=== PATIENT | female | born 1950 | race Caucasian/White ===

== ENCOUNTER → 2019-03-09 16:13 | Outpatient (CLI) | payer MEDICARE, OTHER, SELFPAY ==
--- NOTE | 2019-03-09 16:38 | VDLE_ITS ---
Reason For Study: Leg swelling RIGHT LEFT GSV is normal. GSV is normal. CFV is compressible, spontaneous, phasic, CFV is compressible, spontaneous, phasic, competent and demonstrates normal competent, and demonstrates normal augmentation. augmentation. FV is compressible, spontaneous, phasic, FV is compressible, spontaneous, phasic, competent and demonstrates normal competent and demonstrates normal augmentation. augmentation. POP V is compressible, spontaneous, phasic, POP V is compressible, spontaneous, phasic, competent and demonstrates normal competent and demonstrates normal augmentation. augmentation. T/P Trunk is compressible. T/P Trunk is compressible. PTV is compressible. PTV is compressible. RT PerV is compressible. LT PerV is compressible. Procedure Exam performed in department. A preliminary report was called and/or faxed to Juli. Interpretation Summary Deep veins of the lower extremities are bilaterally patent and compressible segmentally. There is no evidence of deep vein thrombosis on either side. Valvular competence appears intact within the proximal deep venous systems bilaterally. The great saphenous veins appear bilaterally patent and compressible segmentally. Ordering Physician: Mason Bustos Performed By: Jigna Henderson RVT
== END ==
PROVIDERS: Referring Provider Internal Medicine Hematology & Oncology; Visit Provider Internal Medicine Hematology & Oncology
DX: M79.89 Other specified soft tissue disorders (principal); C79.51 Secondary malignant neoplasm of bone
CPT/HCPCS: 93970

== ENCOUNTER 2019-03-10 16:49 | Emergency (ER) | payer MEDICARE, OTHER, SELFPAY ==
[2019-03-10 16:50] VITALS: BP 146/93; PULSE 112; RESP 16; TEMP 36.6; O2SAT 100; BMI 16.5
[2019-03-10 16:55] VITALS: RESP 16
--- NOTE | 2019-03-10 17:15 | RAD_ITS ---
STUDY: X-RAY - RIGHT TIBIA AND FIBULA REASON FOR EXAM: Female, 68 years old. Pain and swelling TECHNIQUE: 3 view(s) of the tibia and fibula were obtained. COMPARISON: None. FINDINGS: There is a hairline fracture of the mid to distal tibial shaft There are focal areas of spotty osteopenia and mildly increased sclerosis throughout the tibial diaphysis suspicious for metastatic disease. The soft tissue structures are unremarkable. RAD/Tibia & Fibula 2 Views IMPRESSION: Hairline fracture of mid to distal tibial shaft Suspicious for metastatic disease. MRI recommended for further evaluation Electronically Signed: Jono Abel MD at 17:41 EDT , Service support ,
--- NOTE | 2019-03-10 17:17 | ED.VIS.GEN ---
History of Present Illness Chief Complaint: Lower Extremity Injury Detail of Chief Complaint: Right leg pain Informant: Patient, Family Onset: Month(s), - - Acutely worse today on chronic pain Current Severity: Moderate Maximum Severity: Severe Narrative: Patient presents with pain to the right leg. Patient has metastatic breast cancer with no lesions to the tibia. Several months ago she had undergone radiation to that area to help with pain. That helped for short time but recently pain has been increasing again. She went to [facility] today to have an MRI of her leg done. As she was getting out of the car she stepped wrong and had sudden worsening of her pain. She was able to make it through the MRI and get back to the car, but was so painful she could not get out of the car. Her oncologist suggested she come here for x-rays. Patient does not have the results of her MRI and was told it would not be available until tomorrow. Patient does have chronic swelling to her legs and just underwent venous ultrasound yesterday that showed no evidence of DVT. Past Medical History - Allergies and Home Meds Allergies/Adverse Reactions: Allergies No Known Allergies Allergy (Verified 03/10/19 16:58) Primary Care Physician: Care Physician,No Primary [Primary Care Provider] - Prior records reviewed: Yes Past Medical History: - - Reviewed Lives: With Family Smoking Status: Never smoker Review of Systems General: Denies: Chills, Fever Eyes: Denies: Visual changes - bilaterally ENT: Denies: Bilateral ear pain Cardiovascular: Denies: Chest pain Respiratory: Denies: Dyspnea Gastrointestinal: Denies: Abdominal pain, Nausea, Vomiting Musculoskeletal: Reports: Arthralgias, Back pain Skin: Denies: Rash Neurological: Denies: Headache Endocrine: Denies: Polyuria, Polydipsia Hematologic: Denies: Easy bruising, Easy bleeding Allergy: Denies: Uticaria Physical Exam Vital Signs/Narrative: Vital Signs Temp Pulse Resp BP Pulse Ox 03/10/19 16:55 16 03/10/19 16:50 98 F 112 H 16 146/93 H 100 Inital Vital Signs reviewed: Yes General: Cachectic ENT: Moist mucous membranes Neck: Supple Cardiovascular: Regular rate, Regular rhythm Respiratory: No distress Abdomen: Soft, Nontender Extremities: - - 3+ edema to the bilateral lower extremities. Tenderness throughout the right lower leg. Strong distal pulses are noted. 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 Skin: Normal color Neurological: Alert, Oriented x3 Psychological: Tearful Diagnostic/Tx/Re-eval Impressions Tibia/Fibula X-Ray 03/10/19 17:15 IMPRESSION: Hairline fracture of mid to distal tibial shaft Suspicious for metastatic disease. MRI recommended for further evaluation Electronically Signed: Jono Abel MD at 17:41 EDT , Service support , 03/10/19 17:15 Tibia & Fibula 2 Views [RAD] Stat - Medical Decision Making Patient had taken oxycodone just prior to arrival. X-ray results were discussed with her. She just had an MRI of her lower extremity done prior to arrival here. This result will be available tomorrow. Patient is placed in a walking boot and advised she cannot bear any weight on that right leg. She has a walker and a wheelchair at home that she will use. She has oxycodone at home. I also spoke with Dr. Ordonez. Patient is to call the office tomorrow to review her MRI results and determine if she needs to follow-up with orthopedics. ED Disposition - Plan for ED Patient: Disposition: Home or Assisted Living Diagnosis: Tibia fracture Instructions: FRACTURE, Lower Extremity Additional Instructions: Call Dr Bustos tomorrow to review your MRI and determine if you need to see orthopedics. You can not bear any weight on the right leg.
[2019-03-10 19:20] VITALS: RESP 16
== END 2019-03-10 19:32 | disposition home or self-care (01) ==
PROVIDERS: Emergency Provider Emergency Medicine
DX: S82.201A Unspecified fracture of shaft of right tibia, initial encounter for closed fracture (principal); X58.XXXA Exposure to other specified factors, initial encounter; Y93.9 Activity, unspecified; Y99.9 Unspecified external cause status; G89.29 Other chronic pain; M79.89 Other specified soft tissue disorders; C50.919 Malignant neoplasm of unspecified site of unspecified female breast; G62.2 Polyneuropathy due to other toxic agents; T45.1X5A Adverse effect of antineoplastic and immunosuppressive drugs, initial encounter; Y92.9 Unspecified place or not applicable; Z79.899 Other long term (current) drug therapy
CPT/HCPCS: 73590; 99283

== ENCOUNTER → 2019-03-29 10:28 | Outpatient (CLI) | payer MEDICARE, OTHER, SELFPAY ==
[2019-03-22 09:39] VITALS: BMI 17.2
--- NOTE | 2019-03-29 10:28 | NM_ITS ---
CLINICAL: 68-year-old female with reported history of carcinoma of the breast. WHOLE BODY 99m Tc MDP RADIONUCLIDE BONE SCINTIGRAPHY COMPARISON: Plain film radiograph report right tibia-fibula 03/10/2019 FINDINGS: Following the intravenous administration of 25.8 mCi of 99m Tc MDP, whole body bone images reveal: 1. Increased radiopharmaceutical concentration is defined in the distal right tibial diaphysis. 2. Enhanced uptake is visualized in the glenohumeral compartments of both shoulders, the 11th-12th thoracic, first-second lumbar vertebra posteriorly on the left and right, tibial compartments of both knees, posterior compartment of the right ankle, fifth lumbar vertebra and sacrum anteriorly. 3. The remaining skeletal structures are scintigraphically unremarkable with normal-appearing renal images and urinary bladder activity identified. NM/Bone Scan Whole Body IMPRESSION: 1. Facilitated tracer distribution noted in the distal right tibial diaphysis is commensurate with known trauma-fracture. 2. Degenerative arthritis appears expressed in the bilateral shoulders, thoracic and lumbar spine, sacrum, bilateral knees and right ankle articulation. 3. There is no definitive typical scintigraphic evidence of diffuse axial skeletal metastatic disease on the current examination. Electronically Signed: Prabhakar Galdamez DO at 23:31 EDT Tel , Service support ,
== END ==
PROVIDERS: Referring Provider Internal Medicine Hematology & Oncology; Visit Provider Internal Medicine Hematology & Oncology
DX: C50.911 Malignant neoplasm of unspecified site of right female breast (principal); C79.51 Secondary malignant neoplasm of bone; M84.461A Pathological fracture, right tibia, initial encounter for fracture; M84.463A Pathological fracture, right fibula, initial encounter for fracture; M84.452A Pathological fracture, left femur, initial encounter for fracture
CPT/HCPCS: 78306

== ENCOUNTER → 2019-05-18 15:27 | Outpatient (CLI) | payer MEDICARE, OTHER, SELFPAY ==
[2019-04-18 14:31] VITALS: BMI 15.3
--- NOTE | 2019-05-18 | EMB_PTH ---
PATIENT: MARVIN VALDEZ [facility] U#:[id number] AGE/SX: 74/F ROOM: RE05/18/[address]: CM Junior : 1950 BED: DIS: SPEC #: [id number] RECD: 05/18/19 15:40 STATUS: PERLITA JIGNA #: [id number] VINCENT: 05/18/19 00:[address]: Jana Ivy NP DEPT: SURGICAL PATHOLOGY RECD BY: Aidtya Sethi ENTERED: 05/19/19 08:08 SP TYPE: ENDOM BX/C TERRY DR: Monae Primary Care Phys Tissues: Endometrium, NOS Procedures: Surgery Specimen Level IV HEADER OPERATION: Endometrial biopsy PRE-OP DIAGNOSIS: Abnormal uterine bleeding TISSUE SUBMITTED: Endometrial biopsy MICROSCOPIC DIAGNOSIS Endometrial biopsy: Fragments of weakly proliferative endometrium with focal cystic changes and tubal metaplasia. Fragments of benign ecto- and endocervical epithelium. See comment. SJ:eveline 05/20/19 COMMENT Clinical correlation and appropriate follow up are necessary. MICROSCOPIC DESCRIPTION Slides are reviewed. GROSS DESCRIPTION Received is one container labeled with the patient's name and not further designated. The specimen consists of multiple irregular fragments of box mucoid tissue that in aggregate measure 2.5 x 2 x 0.1 cm. The specimen is totally submitted in one cassette. / SJ:eveline 05/19/19 TC:5 CPT: 05713
[2019-05-18 08:13] VITALS: BMI 16.9
== END ==
PROVIDERS: Visit Provider Nurse Practitioner Women's Health
DX: N93.9 Abnormal uterine and vaginal bleeding, unspecified (principal)
CPT/HCPCS: 88305

== ENCOUNTER 2019-06-24 07:57 | Day surgery (SDC) | payer MEDICARE, OTHER, SELFPAY ==
[2019-04-18 14:31] VITALS: BMI 15.3
[2019-06-14 13:28] VITALS: BMI 16.0
[2019-06-24] VITALS (7 sets, daily range): BP systolic 105–125; BP diastolic 68–79; PULSE 66–103; RESP 16; TEMP 36.8–37.2; O2SAT 96–99; BMI 18.0
[2019-06-24] MEDS: Lactated Ringers 1,000 ML 100 ML IV (08:36)
--- NOTE | 2019-06-24 09:40 | PCM.HP.BLA ---
Problem List (1) Encounter for adjustment and management of vascular access device Status: Acute (2) Cancer of right female breast Status: Chronic History and Physical Date of Admission: 06/24/19 Intake Vital Signs 06/23/19 Blood Pressure 133/78 H 06/23/19 Blood Pressure Location Lt brachial 06/23/19 Blood Pressure Position Sitting 06/23/19 Respiratory Rate 14 06/23/19 Pulse Rate 106 H 06/23/19 Pulse Source Monitor 06/23/19 Temperature 97.7 F L 06/23/19 Temperature Source Oral 06/23/19 Pulse Ox 95 06/23/19 Oxygen Delivery Method room air Intake Visit Reasons: NEEDS PORT INOCENCIA Chief Complaint: Metastatic breast cancer Real Estate Intern Required: No Accompanied by: None Is patient in pain?: No Allergies No Known Allergies Allergy (Verified 06/21/19 14:39) Medications Tamoxifen Citrate 20 mg PO DAILY 30 Days #30 tab 04/05/19 [Rx Confirmed 06/21/19] Megestrol Acetate [Megace Udc] 160 mg PO Q6H 30 Days #480 ml 04/13/19 [Rx Confirmed 06/21/19] Calcium 1 tab PO DAILY 04/18/19 [History Confirmed 06/21/19] Ergocalciferol [Vitamin D] 1 tab PO QWEEK 04/18/19 [History Confirmed 06/21/19] Pregabalin [Lyrica] 50 mg PO TID 04/19/19 [History Confirmed 06/21/19] traMADol [Ultram (G)] 50 mg PO TID PRN 04/19/19 [History Confirmed 06/21/19] PFSH Medical History (Updated 05/18/19 @ 08:35 by CM Junior) FEMORAL PROPHYLACTIC IM NAILS (Acute) Anemia (Chronic) Surgical History (Updated 03/22/19 @ 09:32 by Amanda Diallo) History of mastectomy (Acute) Family History (Updated 03/22/19 @ 09:33 by Amanda Diallo) Mother Colon cancer Father Heart disease Social History (Updated 06/23/19 @ 14:53 by Timo Benítez MD) Smoking Status: Never smoker alcohol intake: never substance use type: does not use caffeine: Yes what type of physical activity do you participate in: walking seatbelt use: always do you feel safe at home: Yes additional social history: Keegan Both are retired HPI HPI HPI: MARVIN VALDEZ, is a 68 F who presents to the office today for HPI HPI HPI: MARVIN VALDEZ, is a 68 F who presents to the office today for Port placement. Patient has metastatic breast cancer. ROS General General: Yes weight change, fatigue and breast cancer; no appetite, colon cancer or weakness HEENT HEENT: Yes eye surgery; no difficulty swallowing, eye injury, swollen glands or hoarseness Endo Endocrine: No thyroid disease, diabetes mellitus, thyroid cancer, Hair loss, heat intolerance or cold intolerance Skin Skin: No rash or changing moles Musc Musculoskeletal: Yes arthritis; no back problems, rheumatoid arthritis, gout or joint pain Cardio Cardiovascular: No murmur, pacemaker, heart disease, atrial fibrillation, high blood pressure, heart attack, heart stent, palpitations, shortness of breat with exertion or chest pain Psych Psychiatric: No depression, anxiety or hearing voices Resp Respiratory: No shortness of breath, No sleep apnea, No cough, No COPD, No asthma, No emphysema, No wheezing Gastro Gastrointestinal: No abdominal pain, No nausea or vomiting, No diarrhea, No constipation, No blood in stool, No acid reflux, Yes hemorrhoids, No ulcers, No gallbladder problem, No black,tarry stools Fish Hematologic: No blood thinners, No blood disorders, No bleeding, No anemia, No blood clots Neuro Neurologic: No system reviewed and no additional complaints, except as docu, No as per HPI, No abnormal walking, No abnormal hearing, No abnormal movements, No abnormal speech, No behavioral changes, No burning sensations, No confusion, No seizure-like activity, No unsteadiness, No dizziness, No localized weakness, No frequent falls, No headache(s), No lack of coordination, No loss of vision, No memory loss, Yes numbness, No other visual disturbances, No radiating pain, No restless legs, No sensory deficit, No fainting, Yes tingling, No tremor(s), No weakness, No other Exam Const General: cooperative Nutritional Appearance: cachectic Orientation: alert, oriented x3 Resp Effort & Inspection: normal respiratory effort Auscultation: clear to auscultation bilaterally Cardio Rate: regular rate Rhythm: regular rhythm Heart Sounds: no murmurs GI Inspection: non-distended Palpation: soft, nontender Assessment & Plan Problems 1. Bone metastases C79.51 2. Encounter for insertion of venous access port Z45.2 Plan I discussed the right chest port placement with the patient in detail. I discussed the risks include not limited to bleeding, infection, pneumothorax, DVT, line infection. The patient understands the risks and is willing proceed with port placement. Timo Benítez MD Pager: [facility] [address] [place] [address], [address] [place] [address] Office:
[2019-06-24] MEDS: Cefazolin 2 GM in 0.9% Normal Saline 100 ML IV (10:05)
[2019-06-24] MEDS: Bupiv/Epi 0.25% 30 ML Vial (10:36)
--- NOTE | 2019-06-24 10:52 | RAD_ITS ---
STUDY: X-RAY CHEST REASON FOR EXAM: Female, 68 years old. Port placement. TECHNIQUE: Single AP portable view of the chest. COMPARISON: None. FINDINGS: A right-sided rosalio catheter has been placed. The tip is in the right atrium. Left lower lobe infiltrate with small left pleural effusion. There is no demonstrated pleural abnormality. Normal size heart. Normal mediastinum and lópez. Normal visualized pulmonary arteries. There is atherosclerotic calcification of the aortic arch with tortuosity. Diffuse metastasis involving the appendicular and axial skeletons. There is no demonstrated abnormality of the visualized soft tissue structures of the upper abdomen. RAD/CXR for Line Placement IMPRESSION: The tip of the right portacatheter is in the right atrium. Diffuse appendicular and skeletal metastatic skeletal metastasis. Left lower lobe infiltrate with small left pleural effusion. Electronically Signed: Nick Torres, at 12:25 EST , Service support ,
--- NOTE | 2019-06-24 10:52 | PCM.OPRPT ---
Problem List (1) Encounter for adjustment and management of vascular access device Status: Acute (2) Cancer of right female breast Status: Chronic Report of Operation Date of Procedure: 06/24/19 Pre-Operative Diagnosis: Recurrent metastatic breast cancer with need for vascular access Post-Operative Diagnosis: Same Surgery/Procedure Performed:: Ultrasound and fluoroscopy guided right chest port placement utilizing right IJ Description of Procedure: After obtaining informed consent patient was brought back to the operating room MAC anesthesia was induced and the right chest and neck were prepped in normal sterile fashion. Ultrasound was used to evaluate both IJs and the [] IJ was selected. Next, using a needle, the [] IJ was accessed and a guidewire was passed on into the superior vena cava under fluoroscopy guidance. A small incision was made over the puncture site and the dilator introducer was placed over the guidewire. Next this was capped and the pocket was made for the port. 1% lidocaine with epinephrine was injected in the proposed port site. An incision was made with scalpel. Electrocautery was used to make a pocket under the skin and subcutaneous tissue. Hemostasis was obtained. Next, the catheter was tunneled up to the neck incision site and placed through the introducer. The peel-away introducer was removed and the position of the catheter was confirmed on fluoroscopy. Next, the catheter was trimmed and attached to the port with the locking device. Interrupted 2-0 Vicryl sutures were used to anchor the port to the chest wall and then the port was placed inside the pocket. The pocket was then flushed with saline and the port irrigated with saline. There was good blood return and the port flushed easily. Next, heparin was injected into the port. The skin was closed with subcutaneous interrupted 3-0 Vicryl sutures. A single 3-0 Vicryl sutures placed under the skin at the neck incision site. Steri-Strips were placed as well as op sites. Patient tolerated procedure well, was taken to PACU in stable condition. Chest x-ray will be obtained. Grafts/Implants Used: 8 Sudanese PowerPort - Admit VTE Documentation VTE Mechan Device Prophylaxis: SCD's
--- NOTE | 2019-06-24 10:55 | DCINST_ITS ---
Discharge Diet: No Restrictions - Pain medication may cause nausea. You should typically eat light foods as you take your pain medication. Discharge Activity: Return to Normal Activity, May Shower - with your bandage in place in 1-2 days after surgery. DO NOT SHOWER WHEN YOUR PORT IS ACCESSED. Call your doctor if your incision/area has: Continuous Slow Oozing, Sudden Increased Bleeding, Increased Pain/ Swelling, Increased Redness Call your doctor if you observe: Fever of 101 or Higher Remove Dressing in (days):: 3 - When you remove the bandage, leave the steri- strips intact until they fall off. Allergies/Adverse Reactions: Allergies No Known Allergies Allergy (Verified 06/24/19 08:28) Medications to take at Discharge Megestrol Acetate [Megace Udc] 160 mg PO Q6H 30 Days #480 ml 04/13/19 Calcium 1 tab PO DAILY 04/18/19 Pregabalin [Lyrica] 50 mg PO TID 04/19/19 traMADol [Ultram (G)] 50 mg PO BID PRN 04/19/19 Cholecalciferol (VIT D3) [Vitamin D] 1,000 unit PO DAILY 06/23/19 Tamoxifen Citrate 20 mg PO DAILY 06/23/19 Primary Care Physician: Golden Goldsmith Chi, MD [Primary Care Provider] - Test Results: Test results from this visit will be discussed in further detail at your follow- up appointment, if applicable. Please Follow Up With: Timo Benítez MD When: Please call to schedule 2 week follow up appointment. [phone]
== END 2019-06-24 12:50 | disposition home or self-care (01) ==
LOC: SDC 07:59 → AC 08:01 → ACINP 10:29
PROVIDERS: Family Provider Family Medicine Geriatric Medicine; PCP Family Medicine Geriatric Medicine; Referring Provider Surgery; Visit Provider Surgery
PROC: (CPT 36561; principal; 2019-06-24 09:15)
DX: Z45.2 Encounter for adjustment and management of vascular access device (principal); C50.911 Malignant neoplasm of unspecified site of right female breast; C79.51 Secondary malignant neoplasm of bone
CPT/HCPCS: 36561; 71045; 77001; J7120; C1788; J2405

== ENCOUNTER → 2019-07-11 15:13 | Outpatient (CLI) | payer MEDICARE, OTHER, SELFPAY ==
[2019-04-18 14:31] VITALS: BMI 15.3
[2019-07-11 10:54] VITALS: BMI 16.7
--- NOTE | 2019-07-11 15:18 | VDLE_ITS ---
Reason For Study: RLE swelling RIGHT LEFT GSV is normal. CFV is compressible, spontaneous, phasic, CFV is compressible, spontaneous, phasic, competent, and demonstrates normal competent and demonstrates normal augmentation. augmentation. FV is compressible, spontaneous, phasic, competent and demonstrates normal augmentation. POP V is compressible, spontaneous, phasic, competent and demonstrates normal augmentation. T/P Trunk is compressible. PTV is compressible. RT PerV is compressible. Procedure Exam performed in department. The exam was diagnostic. A preliminary report was called and/or faxed to Anna Rizvi TRANSMITTER ENGINEER @ [phone] @ 3:37. Interpretation Summary There is no evidence of right lower extremity deep vein thrombosis. Right great saphenous vein appears patent and compressible segmentally. Normal flow patterns left common femoral vein Ordering Physician: Anna Rizvi Referring Physician: NO PCP Performed By: Rohini Espinal RDCS, RVT
--- NOTE | 2019-07-11 15:38 | RAD_ITS ---
STUDY: X-RAY - RIGHT FOOT CLINICAL: Female, 68 years old. edema of the right foot. hx of breast and bone ca TECHNIQUE: 3 view(s) of the foot. COMPARISON: None. FINDINGS: There is a plantar calcaneal spur. Normal visualized subtalar, talonavicular, calcaneocuboid, tarsal and tarsometatarsal articulations. Normal metatarsi. There is degenerative arthrosis of the metatarsophalangeal joint of the hallux . Normal tibial and fibular sesamoid bones. Normal interphalangeal joint of the great toe. Normal phalanges of the great toe. Normal second through fifth metatarsophalangeal joints. Normal interphalangeal joints and phalanges of the lesser toes. The soft tissue structures are unremarkable. RAD/Foot min 3 Views IMPRESSION: No fracture or malalignment. Electronically Signed: Stanley Harrington MD (Brooks) at 13:16 EST , Service support ,
== END ==
PROVIDERS: Referring Provider Nurse Practitioner Family; Visit Provider Nurse Practitioner Family
DX: Z51.11 Encounter for antineoplastic chemotherapy (principal); C50.811 Malignant neoplasm of overlapping sites of right female breast; C79.51 Secondary malignant neoplasm of bone; R60.0 Localized edema
CPT/HCPCS: 36591; 73630; 85025; 93971; 96367; 96372; 96413; J7050; A4216; J0897; J2405; J2505; J3490; J9171

== ENCOUNTER → 2019-07-15 07:15 | Outpatient (CLI) | payer MEDICARE, OTHER, SELFPAY ==
[2019-04-18 14:31] VITALS: BMI 15.3
[2019-07-11 10:54] VITALS: BMI 16.7
--- NOTE | 2019-07-15 07:26 | MRI_ITS ---
STUDY: MRI BRAIN WITH AND WITHOUT CONTRAST REASON FOR EXAM: Female, 68 years old. imbalance, Hx of breast CA, abnormal PET scan TECHNIQUE: Standardized multiplanar fat and water weighted pulse sequences were obtained. IV Yes YES was administered for the contrast portion of the examination. COMPARISON: None. FINDINGS: There is mild cerebral atrophy with widening of the extra-axial spaces and ventricular dilatation. There are a limited number of small white matter hyperintensities, distributed throughout the deep white matter tracts of the cerebral hemispheres, consistent with mild chronic white matter ischemic changes. There is no evidence for recent intracranial ischemia or other cause of cytotoxic edema on diffusion weighted imaging (DWI). Normal T2* images of the brain without demonstrated susceptibility artifact. There is no demonstrated hemosiderin stain. Normal bilateral basal ganglia. Normal thalami. There is no extra-axial fluid accumulation. Normal flow voids within the major intracranial circulation suggesting patency by spin echo criteria. Normal venous enhancement. Millimeters solidly enhancing round mass with surrounding edema within the inferomedial aspect of the left parietal lobe consistent with metastasis. There is a 3 mm round area of contrast enhancement within the medial aspect of the left hemisphere of the cerebellum worrisome for another metastasis. Normal sella turcica, pituitary gland, infundibular stalk, optic chiasm and hypothalamus. Normal tectal plate and pineal gland. Normal midbrain, susan and medulla. Normal cerebellum. Normal basal cisterns. Normal bilateral temporal bones. Normal bilateral internal auditory canals. There are bilateral ocular lens implants with otherwise normal intraorbital contents. Normal visualized paranasal sinuses. Normal calvarium and skull base. Normal visualized soft tissue structures. Normal visualized upper cervical spine. MRI/Brain W/WO Contrast IMPRESSION: Suspect metastatic disease as described above. Electronically Signed: Prabhakar Linton MD at 15:57 EST Tel , Service support ,
[2019-07-15] MEDS: 0.9% Saline Lock 10 ML Syringe IV (08:10)
== END ==
PROVIDERS: Referring Provider Nurse Practitioner Family; Visit Provider Nurse Practitioner Family
DX: C50.919 Malignant neoplasm of unspecified site of unspecified female breast (principal); M84.463A Pathological fracture, right fibula, initial encounter for fracture
CPT/HCPCS: 70553; A9575; A4216

== ENCOUNTER → 2019-10-07 12:03 | Outpatient (CLI) | payer MEDICARE, OTHER, SELFPAY ==
[2019-04-18 14:31] VITALS: BMI 15.3
[2019-10-04 11:37] VITALS: BMI 16.9
--- NOTE | 2019-10-07 12:04 | MRI_ITS ---
STUDY: MRI BRAIN WITH AND WITHOUT CONTRAST REASON FOR EXAM: Female, 69 years old. Post radiation scan TECHNIQUE: Standardized multiplanar fat and water weighted pulse sequences were obtained. IV Yes YES was administered for the contrast portion of the examination. COMPARISON: 07/15/2019 FINDINGS: There is mild cerebral atrophy with widening of the extra-axial spaces and ventricular dilatation. There are a limited number of small white matter hyperintensities, distributed throughout the deep white matter tracts of the cerebral hemispheres, consistent with mild chronic white matter ischemic changes. There is no evidence for recent intracranial ischemia or other cause of cytotoxic edema on diffusion weighted imaging (DWI). Normal T2* images of the brain without demonstrated susceptibility artifact. There is no demonstrated hemosiderin stain. Normal bilateral basal ganglia. Normal thalami. There is no extra-axial fluid accumulation. Normal flow voids within the major intracranial circulation suggesting patency by spin echo criteria. Normal venous enhancement. There has been an interval decrease in the size of the solidly enhancing mass within the inferomedial left parietal lobe from 10 mm in diameter to 4 mm in diameter with a decrease in the surrounding vasogenic edema consistent with improved metastasis. The 3 mm solidly enhancing lesions in the medial aspect left hemisphere of the cerebellum is unchanged. There is a new 3 mm solid enhancing lesion within the medial left parietal lobe near the falx consistent with metastasis per Normal sella turcica, pituitary gland, infundibular stalk, optic chiasm and hypothalamus. Normal tectal plate and pineal gland. Normal midbrain, susan and medulla. Normal cerebellum. Normal basal cisterns. Normal bilateral temporal bones. Normal bilateral internal auditory canals. No demonstrated orbital abnormality, within the constraints of a routine brain study. Normal visualized paranasal sinuses. Normal calvarium and skull base. Normal visualized soft tissue structures. Normal visualized upper cervical spine. MRI/Brain W/WO Contrast IMPRESSION: Mixed response to therapy with a decrease in the size of the largest metastatic lesion in the inferomedial left parietal lobe from 10 mm in diameter to 4 mm in diameter. The 3 mm lesion in the medial left hemisphere of the cerebellum is unchanged. There is a new 3 mm lesion in the posterior left parietal lobe near the falx. Electronically Signed: Prabhakar Linton MD at 14:06 EDT Tel , Service support ,
== END ==
PROVIDERS: PCP Family Medicine Geriatric Medicine; Referring Provider Internal Medicine Hematology & Oncology; Visit Provider Internal Medicine Hematology & Oncology
DX: C79.31 Secondary malignant neoplasm of brain (principal); M84.461A Pathological fracture, right tibia, initial encounter for fracture; M84.452A Pathological fracture, left femur, initial encounter for fracture
CPT/HCPCS: 70553; A9575; A4216

== ENCOUNTER → 2019-11-28 14:10 | Outpatient (CLI) | payer MEDICARE, OTHER, SELFPAY ==
[2019-04-18 14:31] VITALS: BMI 15.3
[2019-11-28 10:29] VITALS: BMI 16.2
--- NOTE | 2019-11-28 14:12 | CT_ITS ---
STUDY: CTA CHEST REASON FOR EXAM: Female, 69 years old. POSS PE, SOB, ON CHEMO NOW, METASTATIC BREAST CA-BONE AND BRAIN METS, PREV BILAT MASTECTOMY, HAD RAD TX RADIATION DOSAGE (If Supplied By Facility): CTDIvol = ( 4.73 ) mGy, DLP = ( 103.93 ) mGycm TECHNIQUE: The examination was performed with the intravenous administration of IV 100mL Isovue-370. Post-processing of the angiographic images was performed, with multiplanar reformation and 3D reconstruction. Individualized dose optimization techniques were used for this CT. COMPARISON: None. FINDINGS: Normal enhancement of the main pulmonary artery and right and left pulmonary arteries. Normal enhancement of the bilateral peripheral pulmonary arteries. There is no demonstrated pulmonary embolism. Normal thoracic aorta and visualized great vessels. There is no demonstrated aortic dissection. Normal heart and pericardium. Normal mediastinum. Normal hilar regions. Normal visualized trachea and bronchi. There is compressive atelectasis in the right and left lung bases more prominent in the left lower lobe. Patchy groundglass opacities are seen in the anterior segment of the right lung upper lobe, in the right middle lobe and in the anterior segment of the left lung upper lobe suggesting bilateral pneumonia. Large bilateral pleural effusions. Normal chest wall structures. Diffuse metastatic disease in the osseous structures. Normal visualized upper abdomen. CT/CTA Chest W/WO Contrast IMPRESSION: No demonstrated pulmonary embolism or arterial dissection. Patchy groundglass opacities are seen in the anterior segment of the right lung upper lobe, in the right middle lobe and in the anterior segment of the left lung upper lobe suggesting bilateral pneumonia. Large bilateral pleural effusions. There is compressive atelectasis in the right and left lung bases more prominent in the left lower lobe. Electronically Signed: Harvey Wiley, at 15:35 EDT Tel , Service support ,
[2019-11-28] MEDS: 0.9% Saline Lock 10 ML Syringe IV (14:43)
== END ==
PROVIDERS: PCP Family Medicine Geriatric Medicine; Referring Provider Internal Medicine Hematology & Oncology; Visit Provider Internal Medicine Hematology & Oncology
DX: Z51.11 Encounter for antineoplastic chemotherapy (principal); C50.811 Malignant neoplasm of overlapping sites of right female breast; C79.51 Secondary malignant neoplasm of bone; C79.31 Secondary malignant neoplasm of brain; M84.461A Pathological fracture, right tibia, initial encounter for fracture; M84.452A Pathological fracture, left femur, initial encounter for fracture; J90 Pleural effusion, not elsewhere classified; R53.83 Other fatigue; Z79.899 Other long term (current) drug therapy
CPT/HCPCS: 36591; 71275; 85025; 86300; 96367; 96413; J7050; Q9967; A4216; J2405; J3490; J9171

== ENCOUNTER → 2019-12-08 07:43 | Outpatient (CLI) | payer MEDICARE, OTHER, SELFPAY ==
[2019-04-18 14:31] VITALS: BMI 15.3
[2019-11-28 10:29] VITALS: BMI 16.2
[2019-12-06 11:41] VITALS: BMI 15.9
--- NOTE | 2019-12-08 | FLU_PTH ---
PATIENT: MARVIN VALDEZ LOC: [facility]#:[id number] AGE/SX: 74/F ROOM: RE12/08/[address]: Dr. Lisa Carrera MD : 1950 BED: DIS: SPEC #: [id number] RECD: 12/08/19 10:48 STATUS: PERLITA RETrevor #: [id number] VINCENT: 12/08/19 00:[address]: Lisa Carrera DEPT: CYTOLOGY RECD BY: Indra Ames ENTERED: 12/08/19 10:48 SP TYPE: Fluid OTHR DR: Dr. Golden Goldsmith MD Tissues: THORACIC FLUID Procedures: Special Stain Group II Mucicarmine Stain (control) Surgery Specimen Level IV Cytospin Fluid HEADER OPERATION: Thoracentesis PRE-OP DIAGNOSIS: Pleural effusion TISSUE SUBMITTED: Thoracentesis fluid for cytology DIAGNOSIS CYTOLOGY Thoracentesis fluid for cytology (cytospin and cell block): Negative for malignant cells. See comment. AM:eveline 12/09/19 COMMENT Immunohistochemistry ([id number]) supports the above diagnosis. Mucin stain with matched control was used in the evaluation of this case and is negative. Case has been reviewed in consultation with Dr. Hawkins who concurs with the above diagnosis. IDC:SJ CYTOLOGY STUDY Slides are reviewed. CYTOLOGY GROSS Received is 100 ml of red cloudy fluid labeled with the patient's name and and designated per the requisition as thoracentesis. Submitted for cytology preparation including cell block. / eveline 12/08/19 TC:5 CPT: 44532, 58156, 90953
--- NOTE | 2019-12-08 | IMM_PTH ---
PATIENT: MARVIN VALDEZ LOC: U#:[id number] AGE/SX: 74/F ROOM: RE12/08/[address]: Dr. Lisa Carrera MD : 1950 BED: DIS: SPEC #: [id number] RECD: 12/09/19 12:08 STATUS: PERLITA REQ #: [id number] VINCENT: 12/08/19 00:[address]: Lisa Carrera DEPT: IMMUNOHISTOCHEMISTRY RECD BY: Taty Vidal ENTERED: 12/09/19 12:10 SP TYPE: IMMUNO OTHR DR: Dr. Golden Goldsmith MD Tissues: THORACIC FLUID Procedures: Flash Ret (add) CK20 (add) CK5-6 (add) CK7 (add) MACRO (add) P53 (add) TTF1 (add) Vimentin (add) 34BE12 (add) Pankeratin (initial) P40 (add) PHYSICIAN & INSTITUTION [place] [id number] SPECIMEN INFORMATION: Tissue Source: Thoracentesis fluid Clinical Info: Pleural effusion Specimen Number: [id number] CPT code: 42073, 51641 x10 METHODOLOGY: Deparaffinized sections of prefer/formalin-fixed tissue or PAP/DQ stained slides are incubated with monoclonal/polyclonal antibodies/oligonucleotide probes. Localization is made via biotin free immunoperoxidase method. Appropriate controls are performed and reacted as expected. Results on target cell population are indicated in the following table: RESULTS: ANTIBODY / CLONE RESULT AE1-3 (AE1/AE3/PCK26) positive CK7 (OV-TL12/30) positive CK20 (KS20.8) negative Vimentin (V9) positive 34BE12 (34BE12) positive Macro (HAM-56) positive TTF-1 (8G7G3/1) negative CALRET (polyclonal) positive CK5-6 (D5 & 1684) positive P40 (BC28) negative P53 (DO-7) negative These tests were developed and their performance characteristics determined by [facility]. They may not have been cleared or approved by the U.S. Food and Drug Administration. The FDA has determined that such clearance or approval is not necessary. The above immunohistochemical/dualISH markers are ordered and reviewed by the Pathologist. INTERPRETATION: Thoracentesis fluid: No evidence of malignancy. AM:eveline 12/12/19
--- NOTE | 2019-12-08 07:45 | US_ITS ---
PROCEDURE: ULTRASOUND GUIDED THORACENTESIS. DATE: December 08, 2019. INDICATION: Female, 69 years old. Left pleural effusion. PHYSICIAN: Nick Torres M.D. PROCEDURE: The risks, benefits, and alternatives to the procedure were explained to the patient. The specific risks of bleeding, infection, and pneumothorax requiring chest tube insertion were discussed and accepted. Written informed consent was obtained. Ultrasonographic evaluation of the left lower pleural space was carried out. An adequate pocket was identified. The patient was placed in the sitting, upright position. The overlying skin was prepped and draped in sterile fashion. 1% lidocaine was administered subcutaneously for local anesthesia. Under ultrasound guidance, a 5 Latvian thoracentesis needle/catheter system was advanced into the left posterior lower pleural fluid collection. Approximately 620 mL of blood-tinged fluid was drained. The catheter was removed, and a sterile dressing was applied. A specimen was collected and sent to the laboratory for analysis, as requested by the referring clinician. The patient tolerated the procedure well. A chest x-ray was ordered. US/Thoracentesis W US IMPRESSION: Ultrasound-guided left thoracentesis. Electronically Signed: Nick Torres, at 9:20 EDT , Service support ,
--- NOTE | 2019-12-08 08:09 | RAD_ITS ---
STUDY: X-RAY CHEST REASON FOR EXAM: Female, 69 years old. POST THORACENTESIS TECHNIQUE: AP inspiration and expiration views. COMPARISON: Comparison is made with prior examination dated October 24, 2019. FINDINGS: The patient is status post left thoracentesis. There is no evidence of pneumothorax. Mild left pleural-parenchymal changes persist. Stable diffuse axial and appendicular skeletal metastasis. RAD/Chest Insp/Exp 2 View IMPRESSION: Status post left thoracentesis. There is no evidence of pneumothorax. Mild degree of pleural-parenchymal changes persist at the left lung base. Electronically Signed: Nick Torres, at 9:26 EDT , Service support ,
[2019-12-08] MEDS: 0.9% Saline Lock 10 ML Syringe IV (08:27)
[2019-12-08 08:37] LABS: Hematocrit 31.1 % (37-47); Hemoglobin 9.7 g/dL (12.0-15.0); Mean Corp Hgb Conc 31.2 g/dL (32-36); Mean Corpuscular Hgb 32.9 pg (27.0-32.0); Mean Corpuscular Volume 105.4 fL (81-99); Mean Platelet Vol. 10.3 fl (6.2-12.0); POSITIVE COUNT YES; POSITIVE MORPHOLOGY YES; Platelet Count 124 K/mm3 (150-450); RBC Distribution Width CV 17.1 % (11.6-14.6); RBC Distribution Width SD 65.3 fl (35.1-43.9); Red Blood Count 2.95 M/mm3 (4.2-5.4); White Blood Count 19.2 K/mm3 (4.4-11.0)
[2019-12-08 08:38] LABS: Differential Indicated MANUAL DIFF
[2019-12-08 08:40] VITALS: BP 103/70; BP 104/71; BP 105/56; BP 111/81; BP 98/67; PULSE 124; PULSE 125; PULSE 130; PULSE 136; PULSE 138; RESP 22; RESP 24; TEMP 36.4; O2SAT 96; O2SAT 97; O2SAT 98; O2SAT 99
[2019-12-08 09:05] VITALS: BP 111/81; PULSE 124; RESP 24; O2SAT 97
[2019-12-08 09:10] LABS: Lymphocyte 7 % (19-41); Metamyelocyte 2 % (0-1); Monocyte 3 % (0-10); Neutrophil-Band 14 % (0-5); Neutrophil-Segmented 74 % (47-70); Total Cells Counted 100 (MANUAL DIFF)
[2019-12-08 09:14] LABS: Cytology, Body Fluid / CSF SEE PATHOLOGY REPORT
[2019-12-08 09:15] LABS: Anisocytosis 2+; Macrocytosis 1+; Platelet Estimate SLT DEC (ADEQ); Poikilocytosis 1+
[2019-12-08 09:25] LABS: Absolute Lymphocyte Count 1.34 X10^3/uL (0.83-4.51)
[2019-12-08 09:28] LABS: Absolute Neutrophil Count 16.9 X10^3/uL (2.0-7.7)
[2019-12-08 09:45] LABS: International Normalized Ratio 1.3; Prothrombin Time (Protime)PT. 15.7 SECONDS (11.7-14.9)
[2019-12-08 09:46] LABS: Partial Thromboplast Time 31.1 Seconds (24.1-36.2)
[2019-12-09 09:15] LABS: Pathologist Review Reviewed
== END ==
PROVIDERS: PCP Family Medicine Geriatric Medicine; Referring Provider Internal Medicine Hematology & Oncology; Visit Provider Internal Medicine Hematology & Oncology
DX: J90 Pleural effusion, not elsewhere classified (principal); C79.51 Secondary malignant neoplasm of bone; C79.31 Secondary malignant neoplasm of brain; M84.461A Pathological fracture, right tibia, initial encounter for fracture; Z79.899 Other long term (current) drug therapy
CPT/HCPCS: 32555; 36415; 71046; 85025; 85610; 85730; 87070; 87075; 87205; 88108; 88305; 88313; 88341; 88342; A4216

== ENCOUNTER → 2019-12-09 12:10 | Outpatient (CLI) | payer MEDICARE, OTHER, SELFPAY ==
[2019-04-18 14:31] VITALS: BMI 15.3
[2019-12-06 11:41] VITALS: BMI 15.9
== END ==
PROVIDERS: PCP Family Medicine Geriatric Medicine; Visit Provider Nurse Practitioner Family
DX: R06.00 Dyspnea, unspecified (principal); M84.452A Pathological fracture, left femur, initial encounter for fracture
CPT/HCPCS: 87635; G2023; U0003

== ENCOUNTER → 2019-12-14 10:52 | Outpatient (CLI) | payer MEDICARE, OTHER, SELFPAY ==
[2019-04-18 14:31] VITALS: BMI 15.3
[2019-12-06 11:41] VITALS: BMI 15.9
--- NOTE | 2019-12-14 11:03 | MRI_ITS ---
STUDY: MRI BRAIN WITH AND WITHOUT CONTRAST REASON FOR EXAM: Female, 69 years old. brain mets, hx breast ca, post radiation, currently on chemo TECHNIQUE: Standardized multiplanar fat and water weighted pulse sequences were obtained. IV Yes YES was administered for the contrast portion of the examination. COMPARISON: 10/07/2019 FINDINGS: There is mild cerebral atrophy with widening of the extra-axial spaces and ventricular dilatation. There are a limited number of small white matter hyperintensities, distributed throughout the deep white matter tracts of the cerebral hemispheres, consistent with mild chronic white matter ischemic changes. There is no evidence for recent intracranial ischemia or other cause of cytotoxic edema on diffusion weighted imaging (DWI). Normal T2* images of the brain without demonstrated susceptibility artifact. There is no demonstrated hemosiderin stain. Normal bilateral basal ganglia. Normal thalami. There is no extra-axial fluid accumulation. Normal flow voids within the major intracranial circulation suggesting patency by spin echo criteria. Normal venous enhancement. The previously described lesion in the medial left hemisphere of the cerebellum is no longer visualized. The 4 mm of a solidly enhancing lesion within the inferior medial left parietal lobe is unchanged. There is been an interval increase in size and solidly enhancing lesion within the posterior left parietal lobe near the falx from 3 mm in diameter to 6 cm in diameter. Normal sella turcica, pituitary gland, infundibular stalk, optic chiasm and hypothalamus. Normal tectal plate and pineal gland. Normal midbrain, susan and medulla. Normal cerebellum. Normal basal cisterns. Normal bilateral temporal bones. Normal bilateral internal auditory canals. There are bilateral ocular lens implants with otherwise normal intraorbital contents. Normal visualized paranasal sinuses. Normal calvarium and skull base. Normal visualized soft tissue structures. Normal visualized upper cervical spine. MRI/Brain W/WO Contrast IMPRESSION: Worsening metastatic disease with enlargement of the nodule in the superior medial left parietal lobe near the falx. Electronically Signed: Prabhakar Linton MD at 14:21 EDT Tel , Service support ,
[2019-12-14] MEDS: 0.9% Saline Lock 10 ML Syringe IV (11:59)
== END ==
PROVIDERS: PCP Family Medicine Geriatric Medicine
DX: C79.31 Secondary malignant neoplasm of brain (principal); C80.1 Malignant (primary) neoplasm, unspecified
CPT/HCPCS: 70553; A9575; A4216

== ENCOUNTER → 2019-12-15 10:30 | Outpatient (CLI) | payer MEDICARE, OTHER, SELFPAY ==
[2019-04-18 14:31] VITALS: BMI 15.3
[2019-12-15 09:56] VITALS: BMI 15.7
--- NOTE | 2019-12-15 10:31 | ECHODONC_ITS ---
Reason For Study: SOB Procedure This was a 2D Doppler, Color Flow transthoracic echocardiogram. Exam performed in department. Left Ventricle Normal LV size. The estimated ejection fraction is 55 %. No regional wall motion abnormalities noted. Right Ventricle Normal RV size. Normal systolic function. Atria Normal left atrium. Normal right atrium. Mitral Valve Equivocal mitral valve prolapse. Mild (1+) eccentric mitral valve insufficiency. Tricuspid Valve Normal tricuspid valve. Mild (1+) tricuspid valve insufficiency. Pulmonary artery systolic pressure is 30 mmHg. Aortic Valve Normal aortic valve. Trisinus/trileaflet aortic valve. Pulmonic Valve Normal pulmonic valve. Great Vessels Normal aortic root. The pulmonary artery is normal size. Inferior vena cava collapse with respiration. Pericardium/Pleural Trivial pericardial effusion. Moderate size left pleural effusion. MMode/2D Measurements & Calculations LVIDd: 3.0 cm IVSd: 1.1 cm Ao root diam: 2.7 cm LVIDs: 2.0 cm LVPWd: 1.1 cm RVDd: 2.6 cm FS: 33.1 % LAV(MOD-bp): 28.1 ml LA A4 area: 11.0 cm2 LA dimension(2D): 2.4 cm LAV(MOD-bp) Indexed: 19.5 ml/m2 LAV(MOD-sp2): 34.0 ml LAV(MOD-sp4): 22.1 ml RA A4 area: 11.7 cm2 Doppler Measurements & Calculations MV E max bin: 56.7 cm/sec Lat Peak E' Bin: 7.6 cm/sec Med Peak E' Bin: 5.6 cm/sec MV A max bin: 80.5 cm/sec E/E' lat: 7.4 E/E' med: 10.2 MV E/A: 0.70 Ao V2 max: 106.9 cm/sec LV V1 max: 85.6 cm/sec PA V2 max: 61.9 cm/sec Ao max P.6 mmHg LV V1 max P.9 mmHg TR max bin: 262.7 cm/sec TR max P.7 mmHg Interpretation Summary Normal LV size. The estimated ejection fraction is 55 %. No regional wall motion abnormalities noted. Equivocal mitral valve prolapse. Mild (1+) eccentric mitral valve insufficiency. Moderate size left pleural effusion. Ordering Physician: Mu Fair Referring Physician: Golden Goldsmith Chi Performed By: Mai Mishra RDCS
== END ==
PROVIDERS: PCP Family Medicine Geriatric Medicine; Referring Provider Internal Medicine Cardiovascular Disease; Visit Provider Internal Medicine Cardiovascular Disease
DX: R06.02 Shortness of breath (principal); R00.0 Tachycardia, unspecified; R07.9 Chest pain, unspecified; R23.0 Cyanosis; J90 Pleural effusion, not elsewhere classified; C50.911 Malignant neoplasm of unspecified site of right female breast; C79.51 Secondary malignant neoplasm of bone; C79.31 Secondary malignant neoplasm of brain
CPT/HCPCS: 93306

== ENCOUNTER 2019-12-17 07:07 | Inpatient (IN) | payer MEDICARE, OTHER, SELFPAY ==
[2019-04-18 14:31] VITALS: BMI 15.3
[2019-12-15 09:56] VITALS: BMI 15.7
[2019-12-17] VITALS (17 sets, daily range): BP systolic 81–117; BP diastolic 53–84; PULSE 103–135; RESP 16–28; TEMP 36.4–36.9; O2SAT 94–100; BMI 15.7; BMI 16.0; BMI 16.1
--- NOTE | 2019-12-17 07:26 | EKG12_ITS ---
Test Reason : Blood Pressure : / mmHG Vent. Rate : 125 BPM Atrial Rate : 125 BPM P-R Int : 126 ms QRS Dur : 068 ms QT Int : 340 ms P-R-T Axes : 054 076 074 degrees QTc Int : 490 ms Sinus tachycardia Otherwise normal ECG Confirmed by DRE BEAVER, KELLIE ([id number]), video news editor SHYANNE ROYAL ([id number]) on 12/19/2019 1:14:08 PM Referred By: NELA Confirmed By:KELLIE ERICKSON MD
--- NOTE | 2019-12-17 07:30 | ED.DCSUM_ITS ---
- ER Visit Summary Date of Service: 12/17/19 Chief Complaint: [Shortness of breath] History of Present Illness: The patient is a 69 F [presents to the emergency department complaint of shortness of breath for last 3 weeks. Patient states that she had a paracentesis done on 12/07 but that really did not seem to improve her symptoms. 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 Mu Fair who started her on Lasix and carvedilol. Patient has a cough but mostly dry. She is not had a fever. She tested negative for COVID-19 1 week ago. Patient's last chemotherapy was 2 weeks ago. Patient denies fever. Patient has history of tachycardia and normally her heart rates in the 130s. No prior history of PE or DVT. Patient has metastatic breast cancer to bone and brain.] Patient could not sleep last night and could not lay flat. Physical Examination: [HEENT-PERRLA, EOMI. Cranial nerves II through XII grossly intact. TMs clear. Mucous membranes moist. No adenopathy. Cardiovascular-regular rate and rhythm without murmur or ectopy Lungs-clear to auscultation, chest wall stable without crepitus or subcu emphysema Abdomen-diminished breath sounds in the bases bilaterally with rales noted bilaterally. Patient is mildly tachypneic. Accessory muscle use or retrac tions. Extremities-intact ?4, normal range of motion, normal pulses, atraumatic] Test Results: [EKG obtained on arrival showed a sinus tachycardia with a ventricular rate of 125 bpm. CBC with differential showed a week and a 27,000, hemoglobin 11, hematocrit 36, platelets 246. Chemistries unremarkable. Troponin less than 0.015. BNP was 63. Initially a d-dimer was obtained and was elevated at over 6. In looking back in the medical record patient had CT scan of the chest with with contrast less than 3 weeks ago and was negative for PE or dissection. Patient had bilateral infiltrates and effusions at that time.] Emergency Department Course and Treatment: [IV line established and her port was accessed. Patient had blood cultures ordered. Patient was started on Zosyn and vancomycin. Repeat COVID-19 test ordered. Discussed case with hospitalist who will order a CTA of the chest to further evaluate for possibility of development of PE.] Treatment Plan: [Admit] Disposition: [Admit] Impression: [Dyspnea Bilateral pneumonia Bilateral pleural effusions Metastatic breast cancer ] This note was generated with [employer] dictation software. It may contain incorrect words, spelling, and punctuation that were not noted in review of the chart prior to signing ED Disposition - Plan for ED Patient: Referrals: Golden Goldsmith Chi, MD [Primary Care Provider] -
--- NOTE | 2019-12-17 08:07 | RAD_ITS ---
STUDY: X-RAY CHEST REASON FOR EXAM: Female, 69 years old. Increased sob and moist cough that started last night -- had thoracentesis on 12/07 -- adds she has chest pain with -- deep breathing. Hx of breast CA TECHNIQUE: Single portable view of the chest was obtained. COMPARISON: December 08, 2019 FINDINGS: A right-sided MediPort is noted with tip projecting over the SVC. Consolidations are noted at both lung bases. There are likely small bilateral effusions. Normal size heart. Normal mediastinum and lópez. Normal visualized pulmonary arteries. Normal visualized aortic arch and descending thoracic aorta. Normal visualized thoracic spine. There is increased density noted in numerous ribs bilateral clavicles and shoulders. There is no demonstrated abnormality of the visualized soft tissue structures of the upper abdomen. RAD/Chest 1 View (Portable) IMPRESSION: No significant interval change in opacities at both lung bases and likely bilateral effusions. Underlying infectious processes aren''t excluded. Dense appearing skeleton may be related to metastatic disease as noted on prior reports. Electronically Signed: Florencio Reno, at 8:35 EDT Tel , Service support ,
[2019-12-17 08:10] LABS: Absolute Lymphocyte Count 0.93 X10^3/uL (0.83-4.51); Absolute Neutrophil Count 23.9 X10^3/uL (2.0-7.7); Basophil# 0.08 X10^3/uL; Basophil% 0.3 % (0-1); Eosinophil# 0.02 X10^3/uL; Eosinophils% 0.1 % (0-5); Hematocrit 36.2 % (37-47); Hemoglobin 11.3 g/dL (12.0-15.0); Lymphocyte # 0.93 X10^3/ul (4.0); Lymphocyte % 3.5 % (19-41); Mean Corp Hgb Conc 31.2 g/dL (32-36); Mean Corpuscular Hgb 33.5 pg (27.0-32.0); Mean Corpuscular Volume 107.4 fL (81-99); Mean Platelet Vol. 9.7 fl (6.2-12.0); Monocyte# 1.19 X10^3/uL; Monocyte% 4.4 % (0-10); NRBC Flagged by Analyzer 0 % (0-5); POSITIVE DIFFERENTIAL YES; POSITIVE MORPHOLOGY YES; Platelet Count 246 K/mm3 (150-450); RBC Distribution Width CV 18.9 % (11.6-14.6); RBC Distribution Width SD 74.1 fl (35.1-43.9); Red Blood Count 3.37 M/mm3 (4.2-5.4); White Blood Count 26.9 K/mm3 (4.4-11.0)
[2019-12-17 08:11] LABS: Differential Indicated SCAN CRITERIA MET
[2019-12-17 08:29] LABS: Anion Gap 7 (5-15); BUN 11 mg/dL (7-18); BUN/Creat Ratio 34.6 RATIO (10-20); Calcium,Total 6.9 mg/dL (8.5-10.1); Chloride 109 mmol/L (98-107); Creatinine, Serum 0.32 mg/dL (0.55-1.02); EST Glomerular Filtration Rate 220 mL/min (>60); Est Glom Filt Rate - Afr Amer 266 mL/min (>60); Estimated Creatinine Clearance 36.63 ml/min; Glucose 106 mg/dL (74-106); Potassium 3.3 mmol/L (3.5-5.1); Sodium Level 142 mmol/L (136-145)
[2019-12-17 08:38] LABS: D-Dimer Quantitative (DVT/PE) 6.63 FEU/ug/m (0.27-0.49)
[2019-12-17 08:40] LABS: Anisocytosis 2+; Hypochromasia 1+; Macrocytosis 2+
[2019-12-17 08:41] LABS: Differential Comment SCANNED
--- NOTE | 2019-12-17 08:41 | ED.RN ---
This nurse notified MD and primary RN of lab results. D-dimer 6.63 and WBC 26.9.
[2019-12-17 08:42] LABS: BNP,B-Type NATRIURETIC PEPTIDE 62.8 pg/mL (0-100)
[2019-12-17 09:03] LABS: Lactic Acid 0.9 mmol/L (0.4-1.9)
--- NOTE | 2019-12-17 10:00 | PCM.HP.STD ---
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 Patient had undergone thoracocentesis on 12/08/2019 on account of left-sided pleural effusion. Condition did not really improve following the procedure. He subsequently underwent further evaluation with CTA of the chest which was negative for PE he was tested for COVID 19 as outpatient a week prior to admission which was negative. As stated above he presented to the emergency department in view of worsening clinical condition. Chest x-ray obtained in the ED demonstrated No significant interval change in opacities at both lung bases and likely bilateral effusions. Her on broad-spectrum antibiotic therapy and subsequently admitted to the COVID cohort floor for subsequent evaluation and management Past Medical History Past Medical History (Chronic Problems): Chronic Problems (Last Reviewed 12/17/19 @ 10:[address] Manuelito Baeza MD) Tachycardia (Chronic) Cyanotic fingertip (Chronic) Dyspnea (Chronic) Chest pain (Chronic) Carcinoma of right breast metastatic to bone (Chronic) Chemotherapy management, encounter for (Chronic) Brain metastases (Chronic) Anemia (Chronic) CARCINOMA OF RIGHT BREAST METASTATIC TO BONE Medical History: Medical History (Last Reviewed 12/17/19 @ 10:[address] Manuelito Baeza MD) Carcinoma of right breast metastatic to bone (Chronic) C50.911, C79.51 Chemotherapy management, encounter for (Chronic) Z51.11 Brain metastases (Chronic) C79.31 Anemia (Chronic) C50.919 CARCINOMA OF RIGHT BREAST METASTATIC TO BONE Heartburn symptom R12 Imbalance M84.463A Neuropathy G62.9 Postmenopausal bleeding N95.0 Swelling of right foot M79.89 Encounter for adjustment and management of vascular access device Z45.2 History of tamoxifen therapy S82.201A, S82.401A Right tibial fracture S82.201A Allergies No Known Allergies Allergy (Verified 12/17/19 07:09) Home Medications: Ambulatory Orders Medication Instructions Recorded Calcium 1 tab PO DAILY 04/18/19 Pregabalin [Lyrica] 50 mg PO TID 04/19/19 traMADol [Ultram (G)] 50 mg PO BID PRN 04/19/19 Cholecalciferol (VIT D3) [Vitamin 1,000 unit PO DAILY 06/23/19 D] carvedilol 3.125 mg tablet 3.125 mg PO BID #60 tab 12/15/19 furosemide 40 mg tablet 40 mg PO DAILY #90 tab 12/15/19 Surgical History: Surgical History (Last Reviewed 12/17/19 @ 10:[address] Manuelito Baeza MD) History of open reduction and internal fixation (ORIF) procedure Onset Date: 09/2017 Z98.890 HUY PLACEMENT IN FEMOR History of right mastectomy Z90.11 History of thoracentesis Onset Date: 12/08/19 Z98.890 left SURGERY RIGHT TIBIAL Onset Date: 2018 2018 Smoking Status: Never smoker - *Family History Maternal Family History: Family History (Last Reviewed 12/17/19 @ 10:[address] Manuelito Baeza MD) Mother Colon cancer Father Heart disease Review of Systems Constitutional: Reports: Anorexia, Weight Change, Fatigue HEENT: Denies: Head Aches, Sinus Congestion, Sinus Drainage Cardiovascular: Reports: Palpitations Respiratory: Reports: Cough Gastrointestinal: Denies: Abdominal Pain, Hematemesis, Hematochezia, Nausea, Melena, Vomiting Genitourinary: Denies: Dysuria, Frequency, Hematuria, Urgency Musculoskeletal: Denies: Joint Pain, Joint Tenderness Skin: Denies: Rash Psychiatric: Denies: Homicidal Ideations, Suicidal Ideations Hematologic/ Lymphatic: Denies: Easy Bruising, Easy Bleeding VTE Information - Inpt Only VTE Present on Admission: No VTE Mechan Device Prophylaxis: None VTE Pharm Prophylaxis ordered?: Yes Patient Problems: Active and Suspected Problems (Last Reviewed 12/17/19 @ 10:[address] Manuelito Baeza MD) Pneumonia (Acute) Objective: GENERAL: Ill-looking HEENT: Atraumatic; EYES; Anicteric, Normal Conjunctiva NECK; supple, normal thyroid, RESPIRATORY: Diminished to auscultation CARDIOVASCULAR: Regular S1 S2, GI: soft, normoactive bowel sounds, : No Renal angle tenderness; EXTREMITIES: No edema, no clubbing, MUSCULOSKELETAL: muscle waisting NEURO: Awake; no lateralizing signs. SKIN: No Rash PSYCH; Flat affect - Physical Exam Vitals/I&O's: Vital Signs Temp Pulse Resp BP Pulse Ox 98.1 F 114 H 28 H 98/78 95 12/17/19 09:43 12/17/19 09:43 12/17/19 09:43 12/17/19 09:43 12/17/19 09:43 Oxygen Flow Rate (L/min) 2 Oxygen Delivery Method Nasal Cannula Weight: 43.091 kg Body Mass Index (BMI) 15.7 Intake and Output for Last 24 Hours 12/15/19 12/16/19 12/17/19 23:59 23:59 23:59 Intake Total 100 / 100 Balance 100 / 100 Laboratory Results 12/17/19 08:00: WBC 26.9 H, RBC 3.37 L, Hgb 11.3 L, Hct 36.2 L, MCV 107.4 H, MCH 33.5 H, MCHC 31.2 L, RDW Std Deviation 74.1 H, RDW Coeff of Rajni 18.9 H, Plt Count 246, MPV 9.7, Immature Gran % (Auto) 2.700 H, Neut % (Auto) 89.0 H, Lymph % (Auto) 3.5 L, [place] % (Auto) 4.4, Eos % (Auto) 0.1, Baso % (Auto) 0.3, Absolute Neuts (auto) 23.9 H, Absolute Lymphs (auto) 0.93, Nucleated RBC % 0, Differential Comment SCANNED, Hypochromasia 1+, Anisocytosis 2+, Macrocytosis 2+ 12/17/19 08:00: Sodium 142, Potassium 3.3 L, Chloride 109 H, Carbon Dioxide 26.0, Anion Gap 7, BUN 11, Creatinine 0.32 L, Estim Creat Clear Calc 36.63, Est GFR (MDRD) Af Amer 266, Est GFR (MDRD) Non-Af 220, BUN/Creatinine Ratio 34.6 H, Glucose 106, Calcium 6.9 L, Troponin I < 0.015 12/17/19 08:00: B-Natriuretic Peptide 62.8 12/17/19 08:00: D-Dimer Quant (PE/DVT) 6.63 H* 12/17/19 08:30: COVID-19 (GUILLERMO) Pending 12/17/19 08:35: Lactic Acid 0.9 Assessment/Plan All Active Problems (Last Reviewed 12/17/19 @ 10:[address] Manuelito Baeza MD) Pneumonia (Acute) Pleural effusion on left (Acute 12/06/19) Encounter for education (Resolved) Encounter for insertion of venous access port (Resolved) The patient is a 69 year old F with past medical history significant for metastatic breast CA with previous right mastectomy currently undergoing chemotherapy presented to the emergency department with recent shortness of breath and productive cough. Chest x-ray obtained in the ED demonstrated No significant interval change in opacities at both lung bases and likely bilateral effusions. Started on broad-spectrum antibiotic therapy and subsequently admitted to the [facility] cohort floor for subsequent evaluation and management 1. Pneumonia ?With suspected gram-negative organisms given patient immunocompromised state. Admitted to the COVID COVID floor while score with 19 is been ruled out. Patient in the meantime was placed on broad-spectrum antibiotic therapy with cefepime Zithromax and vancomycin after cultures have been obtained. Was also placed on supplemental oxygen titrated to keep pulse ox greater than 90 so was placed both pulmonary medicine as well as infectious disease 2. Breast CA with metastasis (to bone) Patient was first diagnosed in 2005 has undergone various treatment. Currently being managed with chemo by Dr. his Little as outpatient 3. Recurrent pleural effusion ?Patient underwent left-sided thoracocentesis with half a liter of pleural fluid taken off on 12/08/2019. Cytological analysis of patient's pleural fluid was negative for malignancy 4. Severe protein calorie malnutrition ?As evidenced by low BMI of 15.8, significant muscle wasting. Consult placed to dietitian 5. DVT prophylaxis ?Enoxaparin Advance planning; did discuss with the patient and family regarding advanced directives as well as CODE STATUS. Did explain the various scenarios involved ( FULL CODE, DNR CCA, DNR CCA with no intubation, and DNR CC and what each meant) patient elected to be DNR CCA no intubation. Order was placed. Time spent on discussion 18 minutes. Clinical Impression(s) from Imaging Studies Chest X-Ray 06/06/20 08:07 IMPRESSION: No significant interval change in opacities at both lung bases and likely bilateral effusions. Underlying infectious processes aren''t excluded. Dense appearing skeleton may be related to metastatic disease as noted on prior reports. Electronically Signed: Florencio Reno, at 8:35 EDT Tel , Service support , Inpatient E&M: 18181 Init Hosp L3 Procedures: 68365 Advncd Care Plan 30 Min
--- NOTE | 2019-12-17 10:06 | CT_ITS ---
STUDY: CTA CHEST REASON FOR EXAM: Female, 69 years old. Dyspnea, Productive Cough, Pending Covid Test, On Chemo Now For Metastatic Rt Breast Ca, Had Mastectomy And Rad Tx, Mets To Brain And Bone RADIATION DOSAGE (If Supplied By Facility): CTDIvol = ( 3.97 ) mGy, DLP = ( 100.39 ) mGycm TECHNIQUE: The examination was performed with the intravenous administration of IV 100mL Isovue-370. Post-processing of the angiographic images was performed, with multiplanar reformation and 3D reconstruction. Individualized dose optimization techniques were used for this CT. COMPARISON: 11/28/2019. FINDINGS: Normal enhancement of the main pulmonary artery and right and left pulmonary arteries. Normal enhancement of the bilateral peripheral pulmonary arteries. There is no demonstrated pulmonary embolism. There is atherosclerotic tortuosity of the aortic arch and descending thoracic aorta. There is no demonstrated aortic dissection. Normal heart and pericardium. Normal mediastinum. Normal hilar regions. Normal visualized trachea and bronchi. There are hazy bilateral groundglass opacities/infiltrates likely due to pulmonary edema. There are infiltrates in both lower lobes and atelectatic changes. There are moderate to large bilateral pleural effusions increased since previous examination. Normal chest wall structures. Extensive diffuse sclerotic and lytic lesions in the spine, sternum and ribs are again seen consistent with diffuse metastases. There is increased kyphosis of the cervicothoracic junction. There is limited evaluation of the upper abdomen. CT/CTA Chest W/WO Contrast IMPRESSION: 1. No evidence of pulmonary embolism. 2. Bilateral infiltrates/edema worse than the previous examination with infiltrates in the lower lungs and loss of volume. 3. Moderate to large bilateral pleural effusions increased since previous examination. 4. Extensive diffuse metastatic bone disease. Electronically Signed: Francisco J Stubbs MD at 11:06 EDT Tel , Service support ,
--- NOTE | 2019-12-17 10:47 | PCM.RX.CS ---
Consult Pharmacy has been consulted to manage selected antiobiotic: Vancomycin Type of Consult: New start Suspected Infection: Pneumonia Prior Doses of Antibiotics Received/Current Regimen: vanc 750mg IV x1 in E.R. starting at 0931 today Labs: Sodium 142 mmol/L (136-145) 12/17/19 08:00 Potassium 3.3 mmol/L (3.5-5.1) L 12/17/19 08:00 Chloride 109 mmol/L (98-107) H 12/17/19 08:00 Carbon Dioxide 26.0 mmol/L (21.0-32.0) 12/17/19 08:00 Anion Gap 7 (5-15) 12/17/19 08:00 BUN 11 mg/dL (7-18) 12/17/19 08:00 Creatinine 0.32 mg/dL (0.55-1.02) L 12/17/19 08:00 Est GFR (MDRD) Af Amer 266 mL/min (>60) 12/17/19 08:00 Est GFR (MDRD) Non-Af 220 mL/min (>60) 12/17/19 08:00 BUN/Creatinine Ratio 34.6 RATIO (10-20) H 12/17/19 08:00 Glucose 106 mg/dL (74-106) 12/17/19 08:00 Weight used for dosin.1 kg Estimated Creatinine Clearance: 45.8ml/min Goal Trough: 15-20 mcg/mL Pharmacy Plan for Drug Dosing: After the E.R. dose is done, continue with 750mg IV q24h starting tomorrow morning. Will order a trough to be drawn before the 3rd dose on 12/19/19. The patient's CrCl of 45.8ml/min was calculated using the patient's actual weight since it is less than the ideal body weight. The patient's SCr of 0.32 was also rounded up to 0.8 per policy since the patient is over 65 years of age. Pharmacy Service will continue to monitor and adjust dosing as required. Follow-Up Labs: Trough Vancomycin Labs to be done on [date and time ordered]: 12/19/19 08:30
[2019-12-17 10:48] LABS: Probe Check PASS; Specimen Processing Control PASS
[2019-12-17 10:51] LABS: Fibrinogen 310 mg/dl (203-444); International Normalized Ratio 1.4; Prothrombin Time (Protime)PT. 16.2 SECONDS (11.7-14.9)
[2019-12-17 10:53] LABS: CPK Total, Creatine Kinase 28 U/L (26-192); CRP 8.87 mg/L (0.0-3.0); LDH 161 U/L (84-246)
[2019-12-17 11:35] LABS: Procalcitonin 0.05 ng/mL (0.00-0.09)
[2019-12-17] MEDS: Calcium (Elemental) 500 MG Tablet PO (12:51)
[2019-12-17] MEDS: Enoxaparin 40 MG/0.4 ML Syringe SC (12:51)
[2019-12-17] MEDS: Furosemide 40 MG Tablet PO (12:51)
[2019-12-17 13:29] LABS: M R Staph aureus DNA By PCR Negative (Negative); Probe Check PASS; Specimen Processing Control PASS
[2019-12-17] MEDS: Ensure Clear 120 ML Liquid PO (18:01)
[2019-12-17] MEDS: Pregabalin 50 MG Capsule PO (22:49)
[2019-12-17] MEDS: 0.9% Saline Lock 10 ML Syringe IV (22:50)
[2019-12-18] VITALS (13 sets, daily range): BP systolic 84–132; BP diastolic 50–98; PULSE 72–126; RESP 16–22; TEMP 36.6–37.1; O2SAT 90–98
[2019-12-18] MEDS: 0.9% Saline Lock 10 ML Syringe IV (02:08)
[2019-12-18 03:27] LABS: Absolute Lymphocyte Count 0.72 X10^3/uL (0.83-4.51); Basophil# 0.03 X10^3/uL; Basophil% 0.2 % (0-1); Eosinophil# 0.02 X10^3/uL; Eosinophils% 0.2 % (0-5); Hematocrit 29.7 % (37-47); Lymphocyte # 0.72 X10^3/ul (4.0); Lymphocyte % 5.7 % (19-41); Mean Corp Hgb Conc 30.3 g/dL (32-36); Mean Corpuscular Hgb 32.8 pg (27.0-32.0); Mean Corpuscular Volume 108.4 fL (81-99); Mean Platelet Vol. 9.7 fl (6.2-12.0); Monocyte# 0.66 X10^3/uL; Monocyte% 5.2 % (0-10); NRBC Flagged by Analyzer 0 % (0-5); Neutrophil # 10.98 X10^3/uL (2.7-7.7); Neutrophil % 87.2 % (47-70); POSITIVE MORPHOLOGY YES; Platelet Count 204 K/mm3 (150-450); RBC Distribution Width CV 18.5 % (11.6-14.6); RBC Distribution Width SD 73.3 fl (35.1-43.9); Red Blood Count 2.74 M/mm3 (4.2-5.4); White Blood Count 12.6 K/mm3 (4.4-11.0)
[2019-12-18 03:30] LABS: Differential Indicated SCAN CRITERIA MET
[2019-12-18 04:19] LABS: Anion Gap 6 (5-15); BUN 9 mg/dL (7-18); BUN/Creat Ratio 39.3 RATIO (10-20); Calcium,Total 6.5 mg/dL (8.5-10.1); Chloride 111 mmol/L (98-107); Creatinine, Serum 0.23 mg/dL (0.55-1.02); EST Glomerular Filtration Rate 321 mL/min (>60); Est Glom Filt Rate - Afr Amer 388 mL/min (>60); Estimated Creatinine Clearance 37.23 ml/min; Glucose 94 mg/dL (74-106); Magnesium 1.9 mg/dL (1.6-2.6); Potassium 3.5 mmol/L (3.5-5.1); Sodium Level 143 mmol/L (136-145)
[2019-12-18 04:55] LABS: Anisocytosis 2+; Macrocytosis 2+; Platelet Estimate ADEQUATE (ADEQ)
--- NOTE | 2019-12-18 05:58 | PCM.CON.CC ---
Reason for Consult Date of Consultation: 12/18/19 Reason for Consultation: Acute respiratory insufficiency History of Present Illness: The patient is a 69-year-old female, with a history as outlined below, who presented to the emergency department on December 16 with complaints of shortness of breath. The patient has a history of metastatic breast carcinoma diagnosed in 2005 status post right mastectomy and sentinel node biopsy. The patient received adjuvant chemotherapy in [place]. Following this, she moved to [facility] where she resided in [place] until 2018. The patient was initially being cared for through the [facility]. More recently, she transferred her cancer care here to [facility]. The patient is currently being managed by Dr. Carrera of oncology. She does have a history of a left-sided pleural effusion, for which she underwent ultrasound-guided thoracentesis on December 07. 620 mL's of blood-tinged fluid was removed. Pleural fluid was negative for infection. Cytology was negative for malignancy. This was the patient's first thoracentesis ever completed. Surface echocardiogram completed in December 2019 revealed normal LV size with an ejection fraction of 55% and a pulmonary artery systolic pressure estimated to be 30 mmHg. On presentation to the emergency department, the patient was noted to be afebrile and hemodynamically stable. She was, nevertheless tachycardic and tachypneic. Laboratory evaluation revealed an elevated white blood cell count to 27,000. INR was noted to be 1.4. D-dimer was elevated to 6.63. Chemistry profile was notable for a potassium of 3.3. Lactic acid was within normal limits. COVID testing was negative. MRSA screen was negative. CTA chest showed no evidence for PE. There was, however, evidence of bilateral pleural effusions, with areas of possible loculation, along with scattered groundglass opacities. Incidental note was extensive diffuse sclerotic and lytic lesions in the spine, sternum and ribs. The patient was placed on supplemental IV fluids and antimicrobials. Past Medical History Past Medical History (Chronic Problems): Chronic Problems (Last Reviewed 12/17/19 @ 10:[address] Manuelito Baeza MD) Tachycardia (Chronic) Cyanotic fingertip (Chronic) Dyspnea (Chronic) Chest pain (Chronic) Carcinoma of right breast metastatic to bone (Chronic) Chemotherapy management, encounter for (Chronic) Brain metastases (Chronic) Anemia (Chronic) CARCINOMA OF RIGHT BREAST METASTATIC TO BONE Medical History: Medical History (Last Reviewed 12/17/19 @ 10:[address] Manuelito Baeza MD) Carcinoma of right breast metastatic to bone (Chronic) C50.911, C79.51 Chemotherapy management, encounter for (Chronic) Z51.11 Brain metastases (Chronic) C79.31 Anemia (Chronic) C50.919 CARCINOMA OF RIGHT BREAST METASTATIC TO BONE Heartburn symptom R12 Imbalance M84.463A Neuropathy G62.9 Postmenopausal bleeding N95.0 Swelling of right foot M79.89 Encounter for adjustment and management of vascular access device Z45.2 History of tamoxifen therapy S82.201A, S82.401A Right tibial fracture S82.201A Allergies No Known Allergies Allergy (Verified 12/17/19 07:09) Home Medications: Ambulatory Orders Medication Instructions Recorded Calcium 1 tab PO DAILY 04/18/19 Pregabalin [Lyrica] 50 mg PO QHS 04/19/19 traMADol [Ultram (G)] 50 mg PO QHS 04/19/19 Cholecalciferol (VIT D3) [Vitamin 1,000 unit PO DAILY 06/23/19 D] carvedilol 3.125 mg tablet 3.125 mg PO BID #60 tab 12/15/19 furosemide 40 mg tablet 40 mg PO DAILY #90 tab 12/15/19 Surgical History: Surgical History (Last Reviewed 12/17/19 @ 10:[address] Manuelito Baeza MD) History of open reduction and internal fixation (ORIF) procedure Onset Date: 09/2017 Z98.890 HUY PLACEMENT IN FEMOR History of right mastectomy Z90.11 History of thoracentesis Onset Date: 12/08/19 Z98.890 left SURGERY RIGHT TIBIAL Onset Date: 2018 2018 Smoking Status: Never smoker - *Family History Maternal Family History: Family History (Last Reviewed 12/17/19 @ 10:[address] Manuelito Bazea MD) Mother Colon cancer Father Heart disease Review of Systems Constitutional: Reports: Fatigue. Denies: Chills, Fever Eyes: Denies: Blurred vision, Double vision HEENT: Denies: Head Aches, Sinus Congestion, Sinus Drainage Cardiovascular: Denies: Chest Pain Respiratory: Reports: Cough, Shortness of Breath, Sputum production Gastrointestinal: Denies: Abdominal Pain, Nausea, Vomiting Genitourinary: Denies: Dysuria Musculoskeletal: Denies: Joint Pain, Joint Tenderness Skin: Denies: Rash, Wounds Neurological: Denies: Numbness, Tingling, Focal weakness Psychiatric: Denies: Anxiety, Depression, Homicidal Ideations, Suicidal Ideations Hematologic/ Lymphatic: Reports: Anemia Patient Problems: Active and Suspected Problems (Last Reviewed 12/17/19 @ 10:[address] Manuelito Baeza MD) Pneumonia (Acute) Objective: The patient's most recent lab work, culture data and imaging studies have all been personally reviewed. Strep and urine Legionella antigens were negative. Respiratory viral panel was negative. Blood cultures have shown no growth to date. Sputum culture is pending. - Physical Exam Vitals/I&O's: Vital Signs Temp Pulse Resp BP Pulse Ox 97.9 F 72 16 100/64 97 12/18/19 02:08 12/18/19 02:08 12/18/19 02:08 12/18/19 02:08 12/18/19 02:08 Oxygen Flow Rate (L/min) 2 Oxygen Delivery Method Nasal Cannula Weight: 96 lb 8.999 oz Body Mass Index (BMI) 16.0 Intake and Output for Last 24 Hours 12/16/19 12/17/19 12/18/19 23:59 23:59 23:59 Intake Total 820 / 820 175 / 175 Output Total 0 / 0 Balance 820 / 820 175 / 175 General: Alert, Cooperative, No apparent distress, - - Frail and cachectic in appearance HEENT: Atraumatic, PERRLA, Normocephalic Oral: No Gingival or Mucosal Lesions/ Ulcerations Neck: Supple, No Nodes, Trachea Midline Lungs: Diminished, - - No conversational dyspnea Cardiovascular: Regular rate, Regular Rhythm, Normal S1, Normal S2 Abdomen: Bowel Sounds Present, Soft, Non Tender Extremities: No clubbing, No cyanosis, No edema Skin: No breakdown Musculoskeletal: Cachexia, Muscle Wasting Lymphatic: No Cervical, Supraclavicular, or Inguinal Adenopathy Neurological: Cranial nerves II-XII grossly intact, Neuro grossly intact Psych/Mental Status: Flat Affect Labs (Last 48 Hours) 12/17/19 12/17/19 12/17/19 08:00 08:00 08:00 WBC 26.9 H RBC 3.37 L Hgb 11.3 L Hct 36.2 L MCV 107.4 H MCH 33.5 H MCHC 31.2 L RDW Std Deviation 74.1 H RDW Coeff of Rajni 18.9 H Plt Count 246 MPV 9.7 Immature Gran % (Auto) 2.700 H Neut % (Auto) 89.0 H Lymph % (Auto) 3.5 L Republic % (Auto) 4.4 Eos % (Auto) 0.1 Baso % (Auto) 0.3 Absolute Neuts (auto) 23.9 H Absolute Lymphs (auto) 0.93 Nucleated RBC % 0 Differential Comment SCANNED Platelet Estimate Hypochromasia 1+ Anisocytosis 2+ Macrocytosis 2+ PT INR Fibrinogen D-Dimer Quant (PE/DVT) Sodium 142 Potassium 3.3 L Chloride 109 H Carbon Dioxide 26.0 Anion Gap 7 BUN 11 Creatinine 0.32 L Estim Creat Clear Calc 36.63 Est GFR (MDRD) Af Amer 266 Est GFR (MDRD) Non-Af 220 BUN/Creatinine Ratio 34.6 H Glucose 106 Lactic Acid Calcium 6.9 L Magnesium Lactate Dehydrogenase Total Creatine Kinase Troponin I < 0.015 C-React Prot Ext Range B-Natriuretic Peptide 62.8 Procalcitonin COVID-19 (GUILLERMO) MRSA (PCR) 12/17/19 12/17/19 12/17/19 08:00 08:00 08:00 WBC RBC Hgb Hct MCV MCH MCHC RDW Std Deviation RDW Coeff of Rajni Plt Count MPV Immature Gran % (Auto) Neut % (Auto) Lymph % (Auto) Republic % (Auto) Eos % (Auto) Baso % (Auto) Absolute Neuts (auto) Absolute Lymphs (auto) Nucleated RBC % Differential Comment Platelet Estimate Hypochromasia Anisocytosis Macrocytosis PT 16.2 H INR 1.4 Fibrinogen 310 D-Dimer Quant (PE/DVT) 6.63 H* Sodium Potassium Chloride Carbon Dioxide Anion Gap BUN Creatinine Estim Creat Clear Calc Est GFR (MDRD) Af Amer Est GFR (MDRD) Non-Af BUN/Creatinine Ratio Glucose Lactic Acid Calcium Magnesium Lactate Dehydrogenase 161 Total Creatine Kinase 28 Troponin I Cancelled C-React Prot Ext Range 8.87 H B-Natriuretic Peptide Procalcitonin COVID-19 (GUILLERMO) MRSA (PCR) 12/17/19 12/17/19 12/17/19 08:00 08:30 08:35 WBC RBC Hgb Hct MCV MCH MCHC RDW Std Deviation RDW Coeff of Rajni Plt Count MPV Immature Gran % (Auto) Neut % (Auto) Lymph % (Auto) Republic % (Auto) Eos % (Auto) Baso % (Auto) Absolute Neuts (auto) Absolute Lymphs (auto) Nucleated RBC % Differential Comment Platelet Estimate Hypochromasia Anisocytosis Macrocytosis PT INR Fibrinogen D-Dimer Quant (PE/DVT) Sodium Potassium Chloride Carbon Dioxide Anion Gap BUN Creatinine Estim Creat Clear Calc Est GFR (MDRD) Af Amer Est GFR (MDRD) Non-Af BUN/Creatinine Ratio Glucose Lactic Acid 0.9 Calcium Magnesium Lactate Dehydrogenase Total Creatine Kinase Troponin I C-React Prot Ext Range B-Natriuretic Peptide Cancelled Procalcitonin COVID-19 (GUILLERMO) Negative MRSA (PCR) 12/17/19 12/17/19 12/17/19 11:00 11:00 11:00 WBC RBC Hgb Hct MCV MCH MCHC RDW Std Deviation RDW Coeff of Rajni Plt Count MPV Immature Gran % (Auto) Neut % (Auto) Lymph % (Auto) Republic % (Auto) Eos % (Auto) Baso % (Auto) Absolute Neuts (auto) Absolute Lymphs (auto) Nucleated RBC % Differential Comment Platelet Estimate Hypochromasia Anisocytosis Macrocytosis PT INR Fibrinogen D-Dimer Quant (PE/DVT) Sodium Potassium Chloride Carbon Dioxide Anion Gap BUN Creatinine Estim Creat Clear Calc Est GFR (MDRD) Af Amer Est GFR (MDRD) Non-Af BUN/Creatinine Ratio Glucose Lactic Acid 1.0 Calcium Magnesium Lactate Dehydrogenase Total Creatine Kinase Troponin I C-React Prot Ext Range B-Natriuretic Peptide Procalcitonin 0.05 COVID-19 (GUILLERMO) MRSA (PCR) Negative 12/18/19 12/18/19 03:05 03:05 WBC 12.6 H RBC 2.74 L Hgb 9.0 L Hct 29.7 L MCV 108.4 H MCH 32.8 H MCHC 30.3 L RDW Std Deviation 73.3 H RDW Coeff of Rajni 18.5 H Plt Count 204 MPV 9.7 Immature Gran % (Auto) 1.500 H Neut % (Auto) 87.2 H Lymph % (Auto) 5.7 L Republic % (Auto) 5.2 Eos % (Auto) 0.2 Baso % (Auto) 0.2 Absolute Neuts (auto) 11.0 H Absolute Lymphs (auto) 0.72 L Nucleated RBC % 0 Differential Comment Platelet Estimate ADEQUATE Hypochromasia Anisocytosis 2+ Macrocytosis 2+ PT INR Fibrinogen D-Dimer Quant (PE/DVT) Sodium 143 Potassium 3.5 Chloride 111 H Carbon Dioxide 26.0 Anion Gap 6 BUN 9 Creatinine 0.23 L Estim Creat Clear Calc 37.23 Est GFR (MDRD) Af Amer 388 Est GFR (MDRD) Non-Af 321 BUN/Creatinine Ratio 39.3 H Glucose 94 Lactic Acid Calcium 6.5 L* Magnesium 1.9 Lactate Dehydrogenase Total Creatine Kinase Troponin I C-React Prot Ext Range B-Natriuretic Peptide Procalcitonin COVID-19 (GUILLERMO) MRSA (PCR) Microbiology 12/17/19 14:40 Urine, Clean Catch Streptococcus pneumoniae Antigen (M - Final 12/17/19 14:40 Urine, Clean Catch Legionella Antigen - Final 12/17/19 10:07 Mucosa - Nose Respiratory Panel (PCR) - Final Clinical Impression(s) from Imaging Studies Chest X-Ray 12/17/19 08:07 IMPRESSION: No significant interval change in opacities at both lung bases and likely bilateral effusions. Underlying infectious processes aren''t excluded. Dense appearing skeleton may be related to metastatic disease as noted on prior reports. Electronically Signed: Florencio Reno at 8:35 EDT Tel , Service support , Chest CTA 12/17/19 10:06 IMPRESSION: 1. No evidence of pulmonary embolism. 2. Bilateral infiltrates/edema worse than the previous examination with infiltrates in the lower lungs and loss of volume. 3. Moderate to large bilateral pleural effusions increased since previous examination. 4. Extensive diffuse metastatic bone disease. Electronically Signed: Francisco J Stubbs MD at 11:06 EDT Tel , Service support , Current Medications Acetaminophen (Tylenol) 650 mg PO Q6H PRN PRN PRN Reason: Pain Score 1-10/Temp > 100.7 F Al Hydroxide/Mg Hydroxide (Mylanta Ii) 30 ml PO Q6H PRN PRN PRN Reason: Gastric Burning Albuterol Sulfate (Ventolin Aerosols) 2.5 mg INHALATION Q2H PRN PRN PRN Reason: Shortness of Breath/Wheezing Calcium Carbonate (Os-Flash 500) 500 mg PO DAILYCM [facility] Last Admin: 12/17/19 12:51 Dose: 500 mg Documented by: Carvedilol (Coreg) 3.125 mg PO BID [facility] Last Admin: 12/17/19 22:29 Dose: Not Given Documented by: Cholecalciferol (Vitamin D (25mcg)) 1,000 unit PO DAILY [facility] Last Admin: 12/17/19 12:51 Dose: 1,000 unit Documented by: Enoxaparin Sodium (Lovenox) 40 mg SC Q24 [facility] Last Admin: 12/17/19 12:51 Dose: 40 mg Documented by: Furosemide (Lasix) 40 mg PO DAILY [facility] Last Admin: 12/17/19 12:51 Dose: 40 mg Documented by: Guaifenesin (Robitussin) 20 ml PO Q4H PRN PRN PRN Reason: COUGH Heparin Sodium (Beef Lung) () 50 units IV UD PRN PRN Reason: Port-a-Cath (VAD)Heparin Flush Cefepime HCl 2 gm/ Sodium (Chloride) 100 mls @ 200 mls/hr IV Q12 [facility] Stop: 12/24/19 14:01 Last Infusion: 12/17/19 23:19 Dose: Infused Documented by: Azithromycin 500 mg/ Dextrose 255 mls @ 250 mls/hr IV Q24 [facility] Stop: 12/22/19 10:07 Last Infusion: 12/17/19 12:36 Dose: Infused Documented by: Vancomycin IV Pharmacy to Dose (1 ea/ Sodium Chloride) 500 mls @ 250 mls/hr IV X1 PRN; Protocol PRN Reason: Rx to Dose Sodium Chloride () 250 mls @ 15 mls/hr IV .[id number] PRN PRN Reason: Saline Flush Sodium Chloride () 250 mls @ 15 mls/hr IV .[id number] PRN PRN Reason: Additional IVPB Infusion Vancomycin HCl 750 mg/ Sodium (Chloride) 265 mls @ 250 mls/hr IV Q24H [facility] Magnesium Hydroxide (Milk Of Magnesia) 30 ml PO DAILY PRN PRN PRN Reason: Constipation Melatonin (Melatonin) 3 mg PO QHS PRN PRN PRN Reason: INSOMNIA Nitroglycerin (Nitrostat) 0.4 mg SUBLINGUAL Q5M PRN PRN Reason: CARDIAC/CHEST PAIN Nutritional Formula (Lactose Free) (Ensure Clear) 120 ml PO TIDCM [facility] Last Admin: 12/17/19 18:01 Dose: 120 ml Documented by: Ondansetron HCl (Zofran) 4 mg IV Q8H PRN PRN PRN Reason: NAUSEA/VOMITING Potassium Chloride (K-Dur) 20 meq PO BIDCM [facility] Last Admin: 12/17/19 18:01 Dose: 20 meq Documented by: Pregabalin (Lyrica) 50 mg PO QHS [facility] Last Admin: 12/17/19 22:49 Dose: 50 mg Documented by: Promethazine HCl (Phenergan) 25 mg IM Q6H PRN PRN PRN Reason: Breakthrough nausea/vomiting Sodium Chloride () 10 - 40 ml IV UD PRN PRN Reason: Port-a-Cath (VAD) Flush Last Admin: 12/18/19 02:08 Dose: 10 ml Documented by: Sodium Chloride (0.9% Nacl (Sterile) Posiflush) 10 - 40 ml IV UD PRN PRN Reason: Port access or dressing change Tramadol HCl (Ultram) 50 mg PO Q6H PRN PRN PRN Reason: Pain Score 4-10/10 Assessment/Plan Active and Suspected Problems (Last Reviewed 12/17/19 @ 10:[address] Manuelito Baeza MD) Pneumonia (Acute) RECOMMENDATIONS: 1. Agree with continuing empiric antimicrobials. 2. Recommend proceeding with diagnostic/therapeutic thoracentesis once again. 3. Recent pleural fluid studies for LDH, total protein, cell count and cultures. Recommend resending pleural fluid cytology as well. 4. Wean supplemental oxygen to maintain saturations at or above 90%. Encourage incentive spirometer use and mobilize patient as tolerated. IMPRESSIONS: 1. Acute hypoxemic respiratory insufficiency The patient does appear to have bilateral pleural effusions along with possible airspace disease, concerning for infection. COVID testing was negative. The patient remains on antimicrobials. Prior echocardiogram revealed intact systolic function. Given the patient's extensive metastatic disease, I do feel that it is reasonable to repeat an ultrasound-guided thoracentesis, with plans to re-send pleural fluid for cytology. I would also plan to send the pleural fluid for cell count, cultures, LDH and total protein. In the meantime, I agree with continuing empiric antimicrobials. Wean supplemental oxygen to maintain saturations at or above 90%. Encourage incentive spirometer use and mobilize patient as tolerated. 2. History of metastatic breast cancer The patient is currently being followed by Dr. Carrera of oncology. She remains on systemic chemotherapy. 3. Anemia/protein calorie malnutrition Complicates care, management, recovery and prognosis. Continue to monitor blood counts daily. No current indication for transfusion of blood products. This note was generated with [employer] dictation software. It may contain incorrect words, spelling, and punctuation that were not noted in checking the note before signing. Inpatient E&M: 54453 Init Hosp L3
--- NOTE | 2019-12-18 07:14 | PN_ITS ---
Patient Problems: Active and Suspected Problems (Last Reviewed 12/17/19 @ 10:[address] Manuelito Baeza MD) Pneumonia (Acute) Reason for Visit: Acute dyspnea mild recurrent bilateral pleural effusion Subjective: seen patient is to remain significantly dyspneic at rest with persistent cough. Her COVID 19 RCA came back negative. Patient however remains in isolation Objective: GENERAL: Ill-looking HEENT: Atraumatic; EYES; Anicteric, Normal Conjunctiva NECK; supple, normal thyroid, RESPIRATORY: Diminished to auscultation CARDIOVASCULAR: Regular S1 S2, GI: soft, normoactive bowel sounds, : No Renal angle tenderness; EXTREMITIES: No edema, no clubbing, MUSCULOSKELETAL: muscle waisting NEURO: Awake; no lateralizing signs. SKIN: No Rash PSYCH; Flat affect Vitals/I&O's: Vital Signs Temp Pulse Resp BP Pulse Ox 97.9 F 72 16 94/67 97 12/18/19 02:08 12/18/19 02:08 12/18/19 02:08 12/18/19 07:03 12/18/19 02:08 Oxygen Flow Rate (L/min) 2 Oxygen Delivery Method Nasal Cannula Weight: 43.8 kg Body Mass Index (BMI) 16.0 Intake and Output for Last 24 Hours 12/16/19 12/17/19 12/18/19 23:59 23:59 23:59 Intake Total 820 / 820 325 / 325 Output Total 0 / 0 Balance 820 / 820 325 / 325 Microbiology Past 72 Hours 12/17/19 14:40 Urine, Clean Catch Streptococcus pneumoniae Antigen (M - Final 12/17/19 14:40 Urine, Clean Catch Legionella Antigen - Final 12/17/19 10:07 Mucosa - Nose Respiratory Panel (PCR) - Final Laboratory Results 12/17/19 08:00: WBC 26.9 H, RBC 3.37 L, Hgb 11.3 L, Hct 36.2 L, MCV 107.4 H, MCH 33.5 H, MCHC 31.2 L, RDW Std Deviation 74.1 H, RDW Coeff of Rajni 18.9 H, Plt Count 246, MPV 9.7, Immature Gran % (Auto) 2.700 H, Neut % (Auto) 89.0 H, Lymph % (Auto) 3.5 L, [place] % (Auto) 4.4, Eos % (Auto) 0.1, Baso % (Auto) 0.3, Absolute Neuts (auto) 23.9 H, Absolute Lymphs (auto) 0.93, Nucleated RBC % 0, Differential Comment SCANNED, Hypochromasia 1+, Anisocytosis 2+, Macrocytosis 2+ 12/17/19 08:00: Sodium 142, Potassium 3.3 L, Chloride 109 H, Carbon Dioxide 26.0, Anion Gap 7, BUN 11, Creatinine 0.32 L, Estim Creat Clear Calc 36.63, Est GFR (MDRD) Af Amer 266, Est GFR (MDRD) Non-Af 220, BUN/Creatinine Ratio 34.6 H, Glucose 106, Calcium 6.9 L, Troponin I < 0.015 12/17/19 08:00: B-Natriuretic Peptide 62.8 12/17/19 08:00: D-Dimer Quant (PE/DVT) 6.63 H* 12/17/19 08:00: PT 16.2 H, INR 1.4, Fibrinogen 310 12/17/19 08:00: Lactate Dehydrogenase 161, Total Creatine Kinase 28, Troponin I Cancelled, C-React Prot Ext Range 8.87 H 12/17/19 08:00: B-Natriuretic Peptide Cancelled 12/17/19 08:30: COVID-19 (GUILLERMO) Negative 12/17/19 08:35: Lactic Acid 0.9 12/17/19 11:00: Lactic Acid 1.0 12/17/19 11:00: Procalcitonin 0.05 12/17/19 11:00: MRSA (PCR) Negative 12/18/19 03:05: WBC 12.6 H, RBC 2.74 L, Hgb 9.0 L, Hct 29.7 L, MCV 108.4 H, MCH 32.8 H, MCHC 30.3 L, RDW Std Deviation 73.3 H, RDW Coeff of Rajni 18.5 H, Plt Count 204, MPV 9.7, Immature Gran % (Auto) 1.500 H, Neut % (Auto) 87.2 H, Lymph % (Auto) 5.7 L, [place] % (Auto) 5.2, Eos % (Auto) 0.2, Baso % (Auto) 0.2, Absolute Neuts (auto) 11.0 H, Absolute Lymphs (auto) 0.72 L, Nucleated RBC % 0, Platelet Estimate ADEQUATE, Anisocytosis 2+, Macrocytosis 2+ 12/18/19 03:05: Sodium 143, Potassium 3.5, Chloride 111 H, Carbon Dioxide 26.0, Anion Gap 6, BUN 9, Creatinine 0.23 L, Estim Creat Clear Calc 37.23, Est GFR (MDRD) Af Amer 388, Est GFR (MDRD) Non-Af 321, BUN/Creatinine Ratio 39.3 H, Glucose 94, Calcium 6.5 L*, Magnesium 1.9 Current Medications Acetaminophen (Tylenol) 650 mg PO Q6H PRN PRN PRN Reason: Pain Score 1-10/Temp > 100.7 F Al Hydroxide/Mg Hydroxide (Mylanta Ii) 30 ml PO Q6H PRN PRN PRN Reason: Gastric Burning Albuterol Sulfate (Ventolin Aerosols) 2.5 mg INHALATION Q2H PRN PRN PRN Reason: Shortness of Breath/Wheezing Cal[facility] ([facility]-Flash 500) [facility] Admin: 12/17/19 12:51 Dose: 500 mg Documented by: Calcium/Vitamin D (Os-Flash 500mg + D) [facility] Cholecalciferol (Vitamin D (25mcg)) 1,000 unit PO DAILY [facility] Last Admin: 12/17/19 12:51 Dose: 1,000 unit Documented by: Enoxaparin Sodium (Lovenox) 40 mg SC Q24 [facility] Last Admin: 12/17/19 12:51 Dose: 40 mg Documented by: Furosemide (Lasix) 40 mg PO DAILY [facility] Last Admin: 12/17/19 12:51 Dose: 40 mg Documented by: Guaifenesin (Robitussin) 20 ml PO Q4H PRN PRN PRN Reason: COUGH Heparin Sodium (Beef Lung) () 50 units IV UD PRN PRN Reason: Port-a-Cath (VAD)Heparin Flush Cefepime HCl 2 gm/ Sodium (Chloride) 100 mls @ 200 mls/hr IV Q12 [facility] Stop: 12/24/19 14:01 Last Infusion: 12/17/19 23:19 Dose: Infused Documented by: Azithromycin 500 mg/ Dextrose 255 mls @ 250 mls/hr IV Q24 [facility] Stop: 12/22/19 10:07 Last Infusion: 12/17/19 12:36 Dose: Infused Documented by: Vancomycin IV Pharmacy to Dose (1 ea/ Sodium Chloride) 500 mls @ 250 mls/hr IV X1 PRN; Protocol PRN Reason: Rx to Dose Sodium Chloride () 250 mls @ 15 mls/hr IV .[id number] PRN PRN Reason: Saline Flush Sodium Chloride () 250 mls @ 15 mls/hr IV .[id number] PRN PRN Reason: Additional IVPB Infusion Vancomycin HCl 750 mg/ Sodium (Chloride) 265 mls @ 250 mls/hr IV Q24H [facility] Calcium Gluconate 1 gm/ (Dextrose) 60 mls @ 60 mls/hr IV X1 ONE Stop: 12/18/19 08:12 Magnesium Hydroxide (Milk Of Magnesia) 30 ml PO DAILY PRN PRN PRN Reason: Constipation Melatonin (Melatonin) 3 mg PO QHS PRN PRN PRN Reason: INSOMNIA Nutritional Formula (Lactose Free) (Ensure Clear) 120 ml PO TIDCM [facility] Last Admin: 12/17/19 18:01 Dose: 120 ml Documented by: Ondansetron HCl (Zofran) 4 mg IV Q8H PRN PRN PRN Reason: NAUSEA/VOMITING Potassium Chloride (K-Dur) 20 meq PO BIDCM [facility] Last Admin: 12/17/19 18:01 Dose: 20 meq Documented by: Pregabalin (Lyrica) 50 mg PO QHS [facility] Last Admin: 12/17/19 22:49 Dose: 50 mg Documented by: Promethazine HCl (Phenergan) 25 mg IM Q6H PRN PRN PRN Reason: Breakthrough nausea/vomiting Sodium Chloride () 10 - 40 ml IV UD PRN PRN Reason: Port-a-Cath (VAD) Flush Last Admin: 12/18/19 02:08 Dose: 10 ml Documented by: Sodium Chloride (0.9% Nacl (Sterile) Posiflush) 10 - 40 ml IV UD PRN PRN Reason: Port access or dressing change Tramadol HCl (Ultram) 50 mg PO Q6H PRN PRN PRN Reason: Pain Score 4-10/10 STROKE Vital Signs/Narrative: Vital Signs BP 12/18/19 07:03 94/67 Medical Necessity - Tobacco Use Smoking Status: Never smoker Assessment/Plan All Active Problems (Last Reviewed 12/17/19 @ 10:[address] Manuelito Baeza MD) Pneumonia (Acute) Pleural effusion on left (Acute 12/06/19) Encounter for education (Resolved) Encounter for insertion of venous access port (Resolved) The patient is a 69 year old F with past medical history significant for metastatic breast CA with previous right mastectomy currently undergoing chemotherapy presented to the emergency department with recent shortness of breath and productive cough. Chest x-ray obtained in the ED demonstrated No s ignificant interval change in opacities at both lung bases and likely bilateral effusions. Started on broad-spectrum antibiotic therapy and subsequently admitted to the COVID cohort floor for subsequent evaluation and management 1. Pneumonia ?With suspected gram-negative organisms given patient immunocompromised state. Admitted to the COVID cohort floor while COVID19 is being ruled out. Patient in the meantime was placed on broad-spectrum antibiotic therapy with cefepime Zithromax and vancomycin after cultures have been obtained. Was also placed on supplemental oxygen titrated to keep pulse ox greater than 90 so was placed both pulmonary medicine as well as infectious disease ?-12/28/2019 seen patient is to remain significantly dyspneic at rest with persistent cough. Her COVID 19 assay came back negative. Patient however remains in isolation 2. Breast CA with metastasis (to bone) Patient was first diagnosed in 2005 has undergone various treatment. Currently being managed with chemo by Dr. Carrera as outpatient 3. Recurrent pleural effusion ?Patient underwent left-sided thoracocentesis with half a liter of pleural fluid taken off on 12/08/2019. Cytological analysis of patient's pleural fluid was negative for malignancy -12/28/2019: CT of the chest demonstrated Moderate to large bilateral pleural effusions increased since previous examination. Discussed with Dr. Stoner with pulmonary medicine plans for patient to undergo ultrasound-guided thoracocentesis with cytological studies repeated. 4. Severe protein calorie malnutrition ?As evidenced by low BMI of 15.8, significant muscle wasting. Consult placed to dietitian 5. DVT prophylaxis ?Enoxaparin Clinical Impression(s) from Imaging Studies Chest X-Ray 12/17/19 08:07 IMPRESSION: No significant interval change in opacities at both lung bases and likely bilateral effusions. Underlying infectious processes aren''t excluded. Dense appearing skeleton may be related to metastatic disease as noted on prior reports. Electronically Signed: Florencio Reno, at 8:35 EDT Tel , Service support , Chest CTA 12/17/19 10:06 IMPRESSION: 1. No evidence of pulmonary embolism. 2. Bilateral infiltrates/edema worse than the previous examination with infiltrates in the lower lungs and loss of volume. 3. Moderate to large bilateral pleural effusions increased since previous examination. 4. Extensive diffuse metastatic bone disease. Electronically Signed: Farncisco J Stubbs MD at 11:06 EDT Tel , Service support , Inpatient E&M: [id number] Subs Hosp L3
[2019-12-18] MEDS: Furosemide 40 MG Tablet PO (08:58)
[2019-12-18] MEDS: Enoxaparin 40 MG/0.4 ML Syringe SC (08:59)
[2019-12-18] MEDS: Calcium Carb/Vitamin D 1 TABLET Tablet PO ×2 (10:40→17:27)
[2019-12-18] MEDS: Ensure Clear 120 ML Liquid PO ×2 (12:24→17:28)
[2019-12-18] MEDS: traMADol 50 MG Tablet PO ×2 (12:25→19:55)
[2019-12-18] MEDS: Pregabalin 50 MG Capsule PO (21:47)
[2019-12-19] VITALS (8 sets, daily range): BP systolic 86–118; BP diastolic 58–84; PULSE 8–125; RESP 16–26; TEMP 36.4–37.6; O2SAT 93–100
--- NOTE | 2019-12-19 06:58 | PCM.PN.INT ---
Subjective: Patient did well overnight. Patient is requiring minimal nasal cannula oxygen to maintain saturations. Blood pressures have been marginal, but no interventions have been required. Patient has remained tachycardic. Patient continues to have conversational dyspnea and was treated for back and chest pain overnight with tramadol. General: Alert, Oriented x3, Cooperative, - - Cachectic. Conversational dyspnea noted. HEENT: Atraumatic, PERRLA, EOMI, Normocephalic, - - No scleral icterus or injection noted. Alopecia noted. Oral: No Gingival or Mucosal Lesions/ Ulcerations, Dry Mucosa Neck: Supple, No Nodes, Trachea Midline, JVD, Right Lungs: No rhonchi, No wheeze, No rales, Diminished, - - Dullness to percussion noted bilaterally Cardiovascular: Regular rate, Regular Rhythm, Normal S1, Normal S2, No murmurs, No rub noted, No Gallop Abdomen: Bowel Sounds Present, Soft, Non Tender, Non-Distended Extremities: No clubbing, No cyanosis, No edema Skin: No rashes, No breakdown Musculoskeletal: No Tenderness to Palpation of Joints or Extremities, Cachexia, Muscle Wasting Lymphatic: No Cervical, Supraclavicular, or Inguinal Adenopathy Neurological: Cranial nerves II-XII grossly intact, Neuro grossly intact, - - Global weakness noted Psych/Mental Status: Appropriate, Flat Affect Vital Signs Temp Pulse Resp BP Pulse Ox 36.4 C L 114 H 16 97/69 94 12/19/19 04:00 12/19/19 04:00 12/19/19 04:00 12/19/19 04:00 12/19/19 04:00 Oxygen Flow Rate (L/min) 1 Oxygen Delivery Method Nasal Cannula Weight: 43.8 kg Body Mass Index (BMI) 16.0 Intake and Output for Last 24 Hours 12/17/19 12/18/19 12/19/19 23:59 23:59 23:59 Intake Total 820 / 820 1263.75 / 1263.75 Output Total 0 / 0 100 / 100 Balance 820 / 820 1163.75 / 1163.75 Labs (Last 48 Hours) 12/17/19 12/17/19 12/17/19 08:00 08:00 08:00 WBC 26.9 H RBC 3.37 L Hgb 11.3 L Hct 36.2 L MCV 107.4 H MCH 33.5 H MCHC 31.2 L RDW Std Deviation 74.1 H RDW Coeff of Rajni 18.9 H Plt Count 246 MPV 9.7 Immature Gran % (Auto) 2.700 H Neut % (Auto) 89.0 H Lymph % (Auto) 3.5 L [place] % (Auto) 4.4 Eos % (Auto) 0.1 Baso % (Auto) 0.3 Absolute Neuts (auto) 23.9 H Absolute Lymphs (auto) 0.93 Nucleated RBC % 0 Differential Comment SCANNED Platelet Estimate Hypochromasia 1+ Anisocytosis 2+ Macrocytosis 2+ PT INR Fibrinogen D-Dimer Quant (PE/DVT) Sodium 142 Potassium 3.3 L Chloride 109 H Carbon Dioxide 26.0 Anion Gap 7 BUN 11 Creatinine 0.32 L Estim Creat Clear Calc 36.63 Est GFR (MDRD) Af Amer 266 Est GFR (MDRD) Non-Af 220 BUN/Creatinine Ratio 34.6 H Glucose 106 Lactic Acid Calcium 6.9 L Magnesium Lactate Dehydrogenase Total Creatine Kinase Troponin I < 0.015 C-React Prot Ext Range B-Natriuretic Peptide 62.8 Procalcitonin COVID-19 (GUILLERMO) MRSA (PCR) 12/17/19 12/17/19 12/17/19 08:00 08:00 08:00 WBC RBC Hgb Hct MCV MCH MCHC RDW Std Deviation RDW Coeff of Rajni Plt Count MPV Immature Gran % (Auto) Neut % (Auto) Lymph % (Auto) [place] % (Auto) Eos % (Auto) Baso % (Auto) Absolute Neuts (auto) Absolute Lymphs (auto) Nucleated RBC % Differential Comment Platelet Estimate Hypochromasia Anisocytosis Macrocytosis PT 16.2 H INR 1.4 Fibrinogen 310 D-Dimer Quant (PE/DVT) 6.63 H* Sodium Potassium Chloride Carbon Dioxide Anion Gap BUN Creatinine Estim Creat Clear Calc Est GFR (MDRD) Af Amer Est GFR (MDRD) Non-Af BUN/Creatinine Ratio Glucose Lactic Acid Calcium Magnesium Lactate Dehydrogenase 161 Total Creatine Kinase 28 Troponin I Cancelled C-React Prot Ext Range 8.87 H B-Natriuretic Peptide Procalcitonin COVID-19 (GUILLERMO) MRSA (PCR) 12/17/19 12/17/19 12/17/19 08:00 08:30 08:35 WBC RBC Hgb Hct MCV MCH MCHC RDW Std Deviation RDW Coeff of Rajni Plt Count MPV Immature Gran % (Auto) Neut % (Auto) Lymph % (Auto) [place] % (Auto) Eos % (Auto) Baso % (Auto) Absolute Neuts (auto) Absolute Lymphs (auto) Nucleated RBC % Differential Comment Platelet Estimate Hypochromasia Anisocytosis Macrocytosis PT INR Fibrinogen D-Dimer Quant (PE/DVT) Sodium Potassium Chloride Carbon Dioxide Anion Gap BUN Creatinine Estim Creat Clear Calc Est GFR (MDRD) Af Amer Est GFR (MDRD) Non-Af BUN/Creatinine Ratio Glucose Lactic Acid 0.9 Calcium Magnesium Lactate Dehydrogenase Total Creatine Kinase Troponin I C-React Prot Ext Range B-Natriuretic Peptide Cancelled Procalcitonin COVID-19 (GUILLERMO) Negative MRSA (PCR) 12/17/19 12/17/19 12/17/19 11:00 11:00 11:00 WBC RBC Hgb Hct MCV MCH MCHC RDW Std Deviation RDW Coeff of Rajni Plt Count MPV Immature Gran % (Auto) Neut % (Auto) Lymph % (Auto) [place] % (Auto) Eos % (Auto) Baso % (Auto) Absolute Neuts (auto) Absolute Lymphs (auto) Nucleated RBC % Differential Comment Platelet Estimate Hypochromasia Anisocytosis Macrocytosis PT INR Fibrinogen D-Dimer Quant (PE/DVT) Sodium Potassium Chloride Carbon Dioxide Anion Gap BUN Creatinine Estim Creat Clear Calc Est GFR (MDRD) Af Amer Est GFR (MDRD) Non-Af BUN/Creatinine Ratio Glucose Lactic Acid 1.0 Calcium Magnesium Lactate Dehydrogenase Total Creatine Kinase Troponin I C-React Prot Ext Range B-Natriuretic Peptide Procalcitonin 0.05 COVID-19 (GIULLERMO) MRSA (PCR) Negative 12/18/19 12/18/19 03:05 03:05 WBC 12.6 H RBC 2.74 L Hgb 9.0 L Hct 29.7 L MCV 108.4 H MCH 32.8 H MCHC 30.3 L RDW Std Deviation 73.3 H RDW Coeff of Rajni 18.5 H Plt Count 204 MPV 9.7 Immature Gran % (Auto) 1.500 H Neut % (Auto) 87.2 H Lymph % (Auto) 5.7 L [place] % (Auto) 5.2 Eos % (Auto) 0.2 Baso % (Auto) 0.2 Absolute Neuts (auto) 11.0 H Absolute Lymphs (auto) 0.72 L Nucleated RBC % 0 Differential Comment Platelet Estimate ADEQUATE Hypochromasia Anisocytosis 2+ Macrocytosis 2+ PT INR Fibrinogen D-Dimer Quant (PE/DVT) Sodium 143 Potassium 3.5 Chloride 111 H Carbon Dioxide 26.0 Anion Gap 6 BUN 9 Creatinine 0.23 L Estim Creat Clear Calc 37.23 Est GFR (MDRD) Af Amer 388 Est GFR (MDRD) Non-Af 321 BUN/Creatinine Ratio 39.3 H Glucose 94 Lactic Acid Calcium 6.5 L* Magnesium 1.9 Lactate Dehydrogenase Total Creatine Kinase Troponin I C-React Prot Ext Range B-Natriuretic Peptide Procalcitonin COVID-19 (GUILLERMO) MRSA (PCR) Microbiology 12/17/19 13:45 Sputum, Expectorated/Coughed Gram Stain - Final 12/17/19 13:45 Sputum, Expectorated/Coughed Respiratory Culture - Preliminary Culture exhibits no growth. 12/17/19 14:40 Urine, Clean Catch Streptococcus pneumoniae Antigen (M - Final 12/17/19 14:40 Urine, Clean Catch Legionella Antigen - Final 12/17/19 10:07 Mucosa - Nose Respiratory Panel (PCR) - Final Medical Necessity - Tobacco Use Smoking Status: Never smoker Assessment/Plan All Active Problems (Last Reviewed 12/17/19 @ 10:[address] Manuelito Baeza MD) Pneumonia (Acute) Pleural effusion on left (Acute 12/06/19) Encounter for education (Resolved) Encounter for insertion of venous access port (Resolved) RECOMMENDATIONS: 1. Agree with continuing empiric antimicrobials. 2. Recommend proceeding with diagnostic/therapeutic thoracentesis once again. 3. Consider discontinuation of COVID precautions 4. Wean supplemental oxygen to maintain saturations at or above 90%. Encourage incentive spirometer use and mobilize patient as tolerated. 5. Possibly transfer from the intensive care unit following thoracentesis response. IMPRESSIONS: 1. Acute hypoxemic respiratory insufficiency Patient has been doing relatively well overnight. Patient does have bilateral pleural effusions with possible airspace disease. Patient does have extensive metastatic disease, so malignant pleural effusion is high in the differential. It is reasonable to continue with antibiotics in the interim. Wean oxygen as tolerated. Patient states that conversational dyspnea has improved previously following thoracentesis. Low clinical suspicion for COVID at this time as patient has had a negative test and has a reasonable primary diagnosis. Further recommendations following results of thoracentesis. 2. History of metastatic breast cancer The patient is currently being followed by Dr. Carrera of oncology. She remains on systemic chemotherapy. 3. Anemia/protein calorie malnutrition Complicates care, management, recovery and prognosis. Continue to monitor blood counts daily. No current indication for transfusion of blood products. Inpatient E&M: [id number] [facility] Hosp L3
--- NOTE | 2019-12-19 07:23 | PN_ITS ---
Patient Problems: Active and Suspected Problems (Last Reviewed 12/17/19 @ 10:[address] Manuelito Baeza MD) Pneumonia (Acute) Reason for Visit: Follow-up on hypoxia/bilateral pleural effusions Subjective: Patient was seen and examined. Denied any new complaints. Denied any fever or chills. She is on 1 to 2 L of oxygen. Going for thoracocentesis today. Vitals/I&O's: Vital Signs Temp Pulse Resp BP Pulse Ox 97.5 F L 114 H 16 97/69 94 12/19/19 04:00 12/19/19 04:00 12/19/19 04:00 12/19/19 04:00 12/19/19 04:00 Oxygen Flow Rate (L/min) 1 Oxygen Delivery Method Nasal Cannula Weight: 43.8 kg Body Mass Index (BMI) 16.0 Intake and Output for Last 24 Hours 12/17/19 12/18/19 12/19/19 23:59 23:59 23:59 Intake Total 820 / 820 1263.75 / 1263.75 Output Total 0 / 0 100 / 100 Balance 820 / 820 1163.75 / 1163.75 General: Alert, Oriented x3, Cooperative, - - cachetic, pale HEENT: Atraumatic, PERRLA, EOMI, Normocephalic Oral: Moist Mucosa Neck: Supple Lungs: Diminished - bilaterally, more in the right middle and lower lung zomes Cardiovascular: Regular rate, Regular Rhythm, Normal S1, Normal S2, Tachycardic Abdomen: Bowel Sounds Present, Soft, Non Tender, Non-Distended, No Hepato- splenomegaly Extremities: No edema Skin: No rashes Musculoskeletal: No Tenderness to Palpation of Joints or Extremities Lymphatic: No Cervical, Supraclavicular, or Inguinal Adenopathy Neurological: Cranial nerves II-XII grossly intact, Neuro grossly intact Psych/Mental Status: Normal Affect, Appropriate Microbiology Past 72 Hours 12/17/19 13:45 Sputum, Expectorated/Coughed Gram Stain - Final 12/17/19 13:45 Sputum, Expectorated/Coughed Respiratory Culture - Preliminary Culture exhibits no growth. 12/17/19 14:40 Urine, Clean Catch Streptococcus pneumoniae Antigen (M - Final 12/17/19 14:40 Urine, Clean Catch Legionella Antigen - Final 12/17/19 10:07 Mucosa - Nose Respiratory Panel (PCR) - Final Current Medications Acetaminophen (Tylenol) 650 mg PO Q6H PRN PRN PRN Reason: Pain Score 1-10/Temp > 100.7 F Al Hydroxide/Mg Hydroxide (Mylanta Ii) 30 ml PO Q6H PRN PRN PRN Reason: Gastric Burning Albuterol Sulfate (Ventolin Aerosols) 2.5 mg INHALATION Q2H PRN PRN PRN Reason: Shortness of Breath/Wheezing Calcium/Vitamin D (Os-Flash 500mg + D) 1 tablet PO BIDCM [facility] Last Admin: 12/18/19 17:27 Dose: 1 tablet Documented by: Enoxaparin Sodium (Lovenox) 40 mg SC Q24 [facility] Last Admin: 12/18/19 08:59 Dose: 40 mg Documented by: Furosemide (Lasix) 40 mg PO DAILY [facility] Last Admin: 12/18/19 08:58 Dose: 40 mg Documented by: Guaifenesin (Robitussin) 20 ml PO Q4H PRN PRN PRN Reason: COUGH Heparin Sodium (Beef Lung) () 50 units IV UD PRN PRN Reason: Port-a-Cath (VAD)Heparin Flush Cefepime HCl 2 gm/ Sodium (Chloride) 100 mls @ 200 mls/hr IV Q12 [facility] Stop: 12/24/19 14:01 Last Infusion: 12/18/19 22:16 Dose: Infused Documented by: Azithromycin 500 mg/ Dextrose 255 mls @ 250 mls/hr IV Q24 [facility] Stop: 12/22/19 10:07 Last Infusion: 12/18/19 11:43 Dose: Infused Documented by: Vancomycin IV Pharmacy to Dose (1 ea/ Sodium Chloride) 500 mls @ 250 mls/hr IV X1 PRN; Protocol PRN Reason: Rx to Dose Sodium Chloride () 250 mls @ 15 mls/hr IV .[id number] PRN PRN Reason: Saline Flush Last Infusion: 12/18/19 22:16 Dose: 15 mls/hr Documented by: Sodium Chloride () 250 mls @ 15 mls/hr IV .[id number] PRN PRN Reason: Additional IVPB Infusion Last Infusion: 12/18/19 12:24 Dose: 0 mls/hr Documented by: Vancomycin HCl 750 mg/ Sodium (Chloride) 265 mls @ 250 mls/hr IV Q24H [facility] Last Infusion: 12/18/19 10:13 Dose: Infused Documented by: Magnesium Sulfate 2 gm/ Sodium (Chloride) 104 mls @ 52 mls/hr IV X1 [facility] Stop: 12/19/19 09:16 Calcium Chloride 1 gm/ Sodium (Chloride) 110 mls @ 100 mls/hr IV X1 ONE Stop: 12/19/19 08:22 Magnesium Hydroxide (Milk Of Magnesia) 30 ml PO DAILY PRN PRN PRN Reason: Constipation Melatonin (Melatonin) 3 mg PO QHS PRN PRN PRN Reason: INSOMNIA Nutritional Formula (Lactose Free) (Ensure Clear) 120 ml PO TIDCM [facility] Last Admin: 12/18/19 17:28 Dose: 120 ml Documented by: Ondansetron HCl (Zofran) 4 mg IV Q8H PRN PRN PRN Reason: NAUSEA/VOMITING Potassium Chloride (K-Dur) 20 meq PO BIDCM [facility] Last Admin: 12/18/19 17:27 Dose: 20 meq Documented by: Pregabalin (Lyrica) 50 mg PO QHS [facility] Last Admin: 12/18/19 21:47 Dose: 50 mg Documented by: Promethazine HCl (Phenergan) 25 mg IM Q6H PRN PRN PRN Reason: Breakthrough nausea/vomiting Sodium Chloride () 10 - 40 ml IV UD PRN PRN Reason: Port-a-Cath (VAD) Flush Last Admin: 12/18/19 02:08 Dose: 10 ml Documented by: Sodium Chloride (0.9% Nacl (Sterile) Posiflush) 10 - 40 ml IV UD PRN PRN Reason: Port access or dressing change Tramadol HCl (Ultram) 50 mg PO Q6H PRN PRN PRN Reason: Pain Score 4-10/10 Last Admin: 12/18/19 19:55 Dose: 50 mg Documented by: STROKE Vital Signs/Narrative: Vital Signs Temp Pulse Resp BP Pulse Ox 12/19/19 04:00 97.5 F L 114 H 16 97/69 94 Medical Necessity - Tobacco Use Smoking Status: Never smoker Assessment/Plan All Active Problems (Last Reviewed 12/17/19 @ 10:[address] Manuelito Baeza MD) Pneumonia (Acute) Pleural effusion on left (Acute 12/06/19) Encounter for education (Resolved) Encounter for insertion of venous access port (Resolved) 1. Bilateral pleural effusion, h/o metastatic breast CA, Going for ultrasound guided thoracocentesis Will follow-up on fluid-analyses, pulmonology following. 2. Pneumonia, stable vitals WBC improved 26.9 to 12.6 Blood cultures are negative, urine legionella and streptococcal Will continue on azithromycin, cefepime and vancomycin Will de-escalate to cefepime and azithromycin pending fluid cultures 3. Anemia, drop in Hb from 11.3 to 9.0 No evidence of overt bleeding; likely from hemodilution Will repeat labs in am 4. Hypocalcemia, corrected Calcium is 8.4 Will replace calcium and magnesium, recheck in am Will hold lasix 5. Severe protein calorie malnutrition, BMI 16.1, double needle operator consulted On Ensure supplements 6. Metastatic breast cancer, diffuse mets to bones s/p right mastectomy s/p radiotherapy, following with oncology in the outpatient 7. DVT PPx- Lovenox SC Inpatient E&M: [id number] Subs Hosp L2
--- NOTE | 2019-12-19 08:00 | US_ITS ---
PROCEDURE: ULTRASOUND GUIDED THORACENTESIS. DATE: December 19, 2019. INDICATION: Female, 69 years old. Left pleural effusion. PHYSICIAN: Nick Torres M.D. PROCEDURE: The risks, benefits, and alternatives to the procedure were explained to the patient. The specific risks of bleeding, infection, and pneumothorax requiring chest tube insertion were discussed and accepted. Written informed consent was obtained. Ultrasonographic evaluation of the left lower pleural space was carried out. An adequate pocket was identified. The patient was placed in the sitting, upright position. The overlying skin was prepped and draped in sterile fashion. 1% lidocaine was administered subcutaneously for local anesthesia. Under ultrasound guidance, a 5 Finnish thoracentesis needle/catheter system was advanced into the left posterior lower pleural fluid collection. Approximately 750 mL of blood tinged fluid was drained. The catheter was removed, and a sterile dressing was applied. A specimen was collected and sent to the laboratory for analysis, as requested by the referring clinician. The patient tolerated the procedure well. A chest x-ray was ordered. US/Thoracentesis W US IMPRESSION: Ultrasound-guided left thoracentesis. Electronically Signed: Nick Torres, at 12:15 EDT , Service support ,
[2019-12-19 09:13] LABS: AST(SGOT) 8 U/L (15-37); Alanine Aminotransfer ALT/SGPT 8 U/L (13-56); Albumin, Serum 2.8 g/dL (3.2-5.0); Alkaline Phosphatase 78 U/L (45-117); Anion Gap 4 (5-15); BUN 10 mg/dL (7-18); BUN/Creat Ratio 35.6 RATIO (10-20); Calcium,Total 7.5 mg/dL (8.5-10.1); Chloride 113 mmol/L (98-107); Creatinine, Serum 0.28 mg/dL (0.55-1.02); EST Glomerular Filtration Rate 253 mL/min (>60); Est Glom Filt Rate - Afr Amer 307 mL/min (>60); Estimated Creatinine Clearance 37.23 ml/min; Globulin 2.5 g/dL (2.2-4.2); Glucose 87 mg/dL (74-106); Potassium 4.2 mmol/L (3.5-5.1); Protein, Total 5.3 g/dL (6.4-8.2); Sodium Level 144 mmol/L (136-145)
--- NOTE | 2019-12-19 11:25 | FLU_PTH ---
PATIENT: MARVIN VALDEZ LOC: MS3 U#:[id number] AGE/SX: 69/F ROOM: MS319 RE12/17/[address]: Dr. Medina Lynch MD : 1950 BED: 1 DIS: 12/20/2019 SPEC #: [id number] RECD: 12/19/19 11:35 STATUS: PERLITA REQ #: [id number] VINCENT: 12/19/19 11:[address]: Medina Lynch DEPT: CYTOLOGY RECD BY: Melchor Mac ENTERED: 12/19/19 12:26 SP TYPE: Fluid OTHR DR: DO Dr. Manuelito Esquivel MD Dr. Marc Fiorentino, MD Dr. Tai Chi Kwok, MD Tissues: THORACIC FLUID Procedures: Special Stain Group II Surgery Specimen Level IV Cytospin Fluid HEADER OPERATION: Thoracentesis left chest PRE-OP DIAGNOSIS: Pleural effusion TISSUE SUBMITTED: Thoracentesis fluid for cytology DIAGNOSIS CYTOLOGY Thoracentesis fluid for cytology (cytospin and cell block): Negative for malignant cells. See comment. ADAM:eveline 12/20/19 COMMENT Correlation with clinical findings and appropriate follow up are necessary. Please make reference to previous specimen ([id number]) thoracentesis fluid for cytology with diagnosis of Negative for malignant cells. CYTOLOGY STUDY Slides are reviewed. CYTOLOGY GROSS Received is 80 ml of cloudy red fluid labeled with the patient's name and and designated per the requisition as thoracentesis. Submitted for cytology preparation including cell block. / eveline 12/19/19 TC:5 CPT: 02488, 58213
--- NOTE | 2019-12-19 11:30 | RAD_ITS ---
STUDY: X-RAY CHEST REASON FOR EXAM: Female, 69 years old. IMMEDIATE POST THORA, LEFT SIDE TECHNIQUE: AP inspiration and expiration views. COMPARISON: Comparison is made with prior study dated December 17, 2019. FINDINGS: The patient is status post left thoracentesis. Mild degree of persistent pleural-parenchymal changes seen at the left base. There is no evidence of pneumothorax. Diffuse sclerotic bony metastasis. RAD/Chest Insp/Exp 2 View IMPRESSION: No evidence of pneumothorax following a left thoracentesis. Electronically Signed: Nick Torres, at 12:34 EDT , Service support ,
[2019-12-19 11:36] LABS: Cytology, Body Fluid / CSF SEE PATHOLOGY REPORT
[2019-12-19] MEDS: Ensure Clear 120 ML Liquid PO (11:55)
[2019-12-19] MEDS: Furosemide 40 MG Tablet PO (11:56)
[2019-12-19] MEDS: Calcium Carb/Vitamin D 1 TABLET Tablet PO ×2 (11:56→19:03)
[2019-12-19] MEDS: Enoxaparin 40 MG/0.4 ML Syringe SC (11:56)
[2019-12-19 12:30] LABS: Glucose, Body Fluid 91 mg/dL (40-70); LDH,Body Fluid 109 Units/l (Not Establ.); Protein, Body Fluid 3.4 g/dL (Not Establ.)
[2019-12-19 13:01] LABS: Body Fluid Mononuclear WBC # 0.285 10^3/uL; Body Fluid Mononuclear WBC % 39.7 %; Body Fluid Polynuclear WBC # 0.434 10^3/uL; Body Fluid Polynuclear WBC % 60.3 %; Body Fluid Total Cells Counted 0.822 10^3/ul; Red Cell Count/Body Fluid 0.017 10^6/ul; White Blood Count/Body Fluid 0.719 10^3/uL
[2019-12-19 13:13] LABS: Iron 94 ug/dL (50-170); Iron Binding Capacity,Total 284 ug/dL (250-450); Magnesium 1.9 mg/dL (1.6-2.6); PERCENT IRON SATURATION 33.1 % (15.0-55.0)
--- NOTE | 2019-12-19 13:15 | CASEMGMT ---
Addendum entered by Brody Edmond 12/19/19 14:05: [facility] would be able to complete start of care on December 23. Order placed for SN, PT/OT Khoa HOFFMAN Original Note: RN CM Assessment Note Presentation: shortness of breath Diagnosis: L Pleural effusion Intro role of CM to patient in room. Pt is awake alert and able to participate in assessment. Pt states she lives with her in one story home with one step into home. She has weakness from not feeling well, but able to care for self. PMH: metastatic breast CA, current with chemo 1x week. Pleural effusions, metastases to brain, anemia PCP: Dr. Goldsmith Specialists: Dr. Campos, pain mgmt; Dr. Fair, cardiology; Dr. Casillas, oncology Insurance: [facility] Preferred Pharmacy: [facility] Prescription Benefit: yes LNOK: Keegan Leon Living Arrangements: Lives in one story home with her . States she has equipment at home to meet needs. Pt states she is independent in bathing, ADL's, cooking. is able to assist if needed. Tranportation: drives DME: Rollator, WC, raised toilet seat, shower seat, hand held shower HHC: none, but pt would like on dc. Home Health list reviewed with patient. Message left with Bertha [facility] to review. SNF: none SW Referral: Evaluate for Palliative Referral Patient DC Goals: Home DC Plan: Home with HHC. PT/OT evaluations pending. CM available for discharge planning coordination. Contact CM for any concerns/needs that may arise. Khoa HOFFMAN
[2019-12-19 13:21] LABS: ALB/GLOB Ratio 1.1 RATIO (0.9-2.4); Globulin 2.5 g/dL (2.2-4.2); LDH 127 U/L (84-246); Protein, Total 5.3 g/dL (6.4-8.2)
[2019-12-19 14:12] LABS: Auto B Fluid Analyzer BKGD Ct COUNTS W/IN LIMITS (W/IN LIMITS)
[2019-12-19 14:13] LABS: Appearance/Body Fluid CLEAR; Color/Body Fluid LT YEL; Source- Body Fluid THORACENTESIS
[2019-12-19 14:16] LABS: Lymphocytes 7 %; Monocytes 38 %; Neutrophil (Segs) 39 %
[2019-12-19 14:17] LABS: Body Fluid QC Type(s) BF1Q; Mesothelial Cells 16 %
--- NOTE | 2019-12-19 14:46 | CASEMGMT ---
Social Work Note SW received consult for Palliative Care. SW completed Palliative Care Screening tool, pt does qualify for Palliative. SW in to speak with pt. SW introduced self and role at [facility]. Pt is alert and orientated x3. SW educated pt on Palliative Care. Pt states that she would like to take information home and review. SW informed pt that a referral can be made at anytime and a referral can be made while she is still at [facility] if she is agreeable. Pt states understanding, states again she prefers to take information home. SW provided pt with Palliative Care brochure. Jigna Cervantes NAPHTHA WASHING SYSTEM OPERATOR, COPING MACHINE OPERATOR
--- NOTE | 2019-12-19 15:09 | PCM.HP.ID ---
Problem List (1) Pneumonia Status: Acute Reason for Consult: pneumonia Consulted by: Dr. Lynch History of Present Illness: The patient is a 69 year old F with h/o breast cancer, presented with several days of worsened cough, SOB, green/slimy sputum. Had some chills. Had thoracentesis 12/07 with neg cx and cytology. Had CTA and neg COVID testing that week due to dyspnea and cough. No sick contacts, has been isolating. No changes in taste/smell. No n/v, some ongoing diarrhea. No issues with port. Came to ED, admitted as covid rule out, given vanc/zosyn/azithro, now on cefepime/azithro. Feeling better. CTA and covid here neg now. Out of isolation. Repeat tap done. Full ROS performed and neg except as noted above. - Medical History Past Medical History (Chronic Problems): Chronic Problems (Last Reviewed 12/17/19 @ 10:[address] Manuelito Baeza MD) Tachycardia (Chronic) Cyanotic fingertip (Chronic) Dyspnea (Chronic) Chest pain (Chronic) Carcinoma of right breast metastatic to bone (Chronic) Chemotherapy management, encounter for (Chronic) Brain metastases (Chronic) Anemia (Chronic) CARCINOMA OF RIGHT BREAST METASTATIC TO BONE Allergies/Adverse Reactions: Allergies No Known Allergies Allergy (Verified 12/17/19 07:09) Home Medications: Ambulatory Orders Medication Instructions Recorded Calcium 1 tab PO DAILY 04/18/19 Pregabalin [Lyrica] 50 mg PO QHS 04/19/19 traMADol [Ultram (G)] 50 mg PO QHS 04/19/19 Cholecalciferol (VIT D3) [Vitamin 1,000 unit PO DAILY 06/23/19 D] carvedilol 3.125 mg tablet 3.125 mg PO BID #60 tab 12/15/19 furosemide 40 mg tablet 40 mg PO DAILY #90 tab 12/15/19 - Social History Tobacco Use: non-smoker Vital Signs Temp Pulse Resp BP Pulse Ox 98.1 F 111 H 24 H 110/71 98 12/19/19 11:52 12/19/19 11:52 12/19/19 11:52 12/19/19 11:52 12/19/19 11:52 Oxygen Flow Rate (L/min) [6] 2 Oxygen Flow Rate (L/min) [5] 2 Oxygen Flow Rate (L/min) [4] 2 Oxygen Flow Rate (L/min) [3] 2 Oxygen Flow Rate (L/min) [2] 2 Oxygen Flow Rate (L/min) [1 ( 2 Initial Baseline)] Oxygen Flow Rate (L/min) 2 Oxygen Delivery Method [6] Nasal Cannula Oxygen Delivery Method [5] Nasal Cannula Oxygen Delivery Method [4] Nasal Cannula Oxygen Delivery Method [3] Nasal Cannula Oxygen Delivery Method [2] Nasal Cannula Oxygen Delivery Method [1 ( Nasal Cannula Initial Baseline)] Oxygen Delivery Method Room Air Weight: 43.8 kg Body Mass Index (BMI) 16.0 Microbiology Past 72 Hours 12/19/19 11:25 Gram Stain - Final Fluid - Pleural (Lung) 12/17/19 13:45 Gram Stain - Final Sputum, Expectorated/Coughed Respiratory Culture - Preliminary Appears to be normal respiratory tate. Further studies to follow. 12/17/19 08:43 Blood Culture - Preliminary Blood Culture (Wb) - Left Forearm No growth in 48 hours. 12/17/19 08:35 Blood Culture - Preliminary Blood Culture (Wb) - Port No growth in 48 hours. 12/17/19 14:40 Streptococcus pneumoniae Antigen (M - Final Urine, Clean Catch 12/17/19 14:40 Legionella Antigen - Final Urine, Clean Catch 12/17/19 10:07 Respiratory Panel (PCR) - Final Mucosa - Nose Laboratory Tests Past 24 Hrs 12/19/19 12/19/19 12/19/19 08:30 08:30 08:30 Sodium 144 Potassium 4.2 Chloride 113 H Carbon Dioxide 27.0 Anion Gap 4 L BUN 10 Creatinine 0.28 L Estim Creat Clear Calc 37.23 Est GFR (MDRD) Af Amer 307 Est GFR (MDRD) Non-Af 253 BUN/Creatinine Ratio 35.6 H Glucose 87 Calcium 7.5 L Magnesium 1.9 Iron 94 TIBC 284 Iron Saturation 33.1 Total Bilirubin 0.70 Direct Bilirubin 0.20 AST 8 L ALT 8 L Alkaline Phosphatase 78 Lactate Dehydrogenase 127 Total Protein 5.3 L 5.3 L Albumin 2.8 L Globulin 2.5 2.5 Albumin/Globulin Ratio 1.1 Fluid Source Fluid Color Fluid Appearance Fluid pH Fluid WBC Fluid RBC Fluid Tot Cell Count Fld Polynuclear WBCs # Fld Polynuclear WBCs % Fluid Mononuclear WBCs Fld Mononuclear WBCs % Fluid Neutrophils Fluid Lymphocytes Fluid Monocytes Fld Mesothelial Cells Fl Pathologist Comment Fluid Glucose Fluid Total Protein Fluid LDH Fluid Comment 2 Miscellaneous Cytology 12/19/19 12/19/19 12/19/19 11:25 11:25 11:25 Sodium Potassium Chloride Carbon Dioxide Anion Gap BUN Creatinine Estim Creat Clear Calc Est GFR (MDRD) Af Amer Est GFR (MDRD) Non-Af BUN/Creatinine Ratio Glucose Calcium Magnesium Iron TIBC Iron Saturation Total Bilirubin Direct Bilirubin AST ALT Alkaline Phosphatase Lactate Dehydrogenase Total Protein Albumin Globulin Albumin/Globulin Ratio Fluid Source THORACENTESIS Fluid Color LT YEL Fluid Appearance CLEAR Fluid pH Pending Fluid WBC 0.719 Fluid RBC 0.017 Fluid Tot Cell Count 0.822 H Fld Polynuclear WBCs # 0.434 Fld Polynuclear WBCs % 60.3 Fluid Mononuclear WBCs 0.285 Fld Mononuclear WBCs % 39.7 Fluid Neutrophils 39 Fluid Lymphocytes 7 Fluid Monocytes 38 Fld Mesothelial Cells 16 Fl Pathologist Comment May follow Fluid Glucose 91 H Fluid Total Protein 3.4 Fluid LDH 109 Fluid Comment 2 SEE COMMENT Miscellaneous Cytology 12/19/19 11:25 Sodium Potassium Chloride Carbon Dioxide Anion Gap BUN Creatinine Estim Creat Clear Calc Est GFR (MDRD) Af Amer Est GFR (MDRD) Non-Af BUN/Creatinine Ratio Glucose Calcium Magnesium Iron TIBC Iron Saturation Total Bilirubin Direct Bilirubin AST ALT Alkaline Phosphatase Lactate Dehydrogenase Total Protein Albumin Globulin Albumin/Globulin Ratio Fluid Source Fluid Color Fluid Appearance Fluid pH Fluid WBC Fluid RBC Fluid Tot Cell Count Fld Polynuclear WBCs # Fld Polynuclear WBCs % Fluid Mononuclear WBCs Fld Mononuclear WBCs % Fluid Neutrophils Fluid Lymphocytes Fluid Monocytes Fld Mesothelial Cells Fl Pathologist Comment Fluid Glucose Fluid Total Protein Fluid LDH Fluid Comment 2 Miscellaneous Cytology Pending - Other Studies Radiology: [] reviewed Other Studies: [] Route of nutrition/ use of supplements: [] Nutritional Intake: [] IV Site: [] Quesada Catheter: [] - Physical Exam General: Alert, Oriented x3, Cooperative, No apparent distress, - - cachectic HEENT: Atraumatic, PERRLA, EOMI Neck: Supple, No Nodes Lungs: Rhonchi Cardiovascular: Regular rate, Regular Rhythm, No murmurs Abdomen: Soft, Non Tender, Non-Distended Extremities: No edema Skin: No rashes IV Site: Central Line, without redness Musculoskeletal: No Tenderness to Palpation of Joints or Extremities Neurological: Cranial nerves II-XII grossly intact - Assessment/Plan Antibiotics: [] Assessment/Plan: [] Active and Suspected Problems (Last Reviewed 12/17/19 @ 10:[address] Manuelito Baeza MD) Pneumonia (Acute) COVID neg x2, out of isolation, low suspicion for viral infection. CTA was neg for PE. Wbc much improved, no fever here. Repeat thoracentesis done, cytology pending. Sputum with normal tate so far. PCT was 0.05. Will stop azithro, cont cefepime for now. Will follow, thank you.
[2019-12-19] MEDS: traMADol 50 MG Tablet PO (19:04)
[2019-12-19] MEDS: 0.9% Saline Lock 10 ML Syringe IV ×3 (19:05→22:18)
--- NOTE | 2019-12-19 19:25 | EKG12_ITS ---
Test Reason : TACHYCARDIA Blood Pressure : / mmHG Vent. Rate : 125 BPM Atrial Rate : 125 BPM P-R Int : 134 ms QRS Dur : 076 ms QT Int : 326 ms P-R-T Axes : 064 067 069 degrees QTc Int : 470 ms Sinus tachycardia with Premature atrial complexes Otherwise normal ECG When compared with ECG of 17-DEC-2019 07:42, Premature atrial complexes are now Present Nonspecific T wave abnormality no longer evident in Inferior leads Confirmed by DRE BEAVER, KELLIE ([id number]), editorial assistant SHYANNE ROYAL ([id number]) on 12/27/2019 9:47:16 AM Referred By: MEENA Confirmed By:KELLIE ERICKSON MD
[2019-12-19] MEDS: Pregabalin 50 MG Capsule PO (22:16)
[2019-12-20] VITALS (7 sets, daily range): BP systolic 100–120; BP diastolic 64–79; PULSE 104–118; RESP 18–20; TEMP 36.4–36.8; O2SAT 86–99
[2019-12-20] MEDS: 0.9% Saline Lock 10 ML Syringe IV ×3 (05:41→14:18)
[2019-12-20 05:49] LABS: Absolute Lymphocyte Count 0.93 X10^3/uL (0.83-4.51); Basophil# 0.03 X10^3/uL; Basophil% 0.3 % (0-1); Eosinophil# 0.04 X10^3/uL; Eosinophils% 0.4 % (0-5); Hematocrit 29.7 % (37-47); Hemoglobin 9.1 g/dL (12.0-15.0); Lymphocyte # 0.93 X10^3/ul (4.0); Lymphocyte % 9.6 % (19-41); Mean Corp Hgb Conc 30.6 g/dL (32-36); Mean Corpuscular Hgb 33.5 pg (27.0-32.0); Mean Corpuscular Volume 109.2 fL (81-99); Mean Platelet Vol. 9.1 fl (6.2-12.0); Monocyte# 0.57 X10^3/uL; Monocyte% 5.9 % (0-10); NRBC Flagged by Analyzer 0 % (0-5); Neutrophil # 7.96 X10^3/uL (2.7-7.7); Neutrophil % 82.4 % (47-70); POSITIVE MORPHOLOGY YES; Platelet Count 194 K/mm3 (150-450); RBC Distribution Width CV 17.6 % (11.6-14.6); RBC Distribution Width SD 70.7 fl (35.1-43.9); Red Blood Count 2.72 M/mm3 (4.2-5.4); White Blood Count 9.7 K/mm3 (4.4-11.0)
[2019-12-20 05:54] LABS: Differential Indicated SCAN CRITERIA MET
[2019-12-20 06:06] LABS: AST(SGOT) 9 U/L (15-37); Alanine Aminotransfer ALT/SGPT 9 U/L (13-56); Albumin, Serum 2.5 g/dL (3.2-5.0); Alkaline Phosphatase 69 U/L (45-117); Anion Gap 5 (5-15); BUN 10 mg/dL (7-18); BUN/Creat Ratio 34.2 RATIO (10-20); Calcium,Total 7.7 mg/dL (8.5-10.1); Chloride 111 mmol/L (98-107); Creatinine, Serum 0.29 mg/dL (0.55-1.02); EST Glomerular Filtration Rate 242 mL/min (>60); Est Glom Filt Rate - Afr Amer 293 mL/min (>60); Estimated Creatinine Clearance 37.23 ml/min; Globulin 2.4 g/dL (2.2-4.2); Glucose 86 mg/dL (74-106); Magnesium 1.7 mg/dL (1.6-2.6); Phosphorus 2.9 mg/dL (2.5-4.9); Potassium 4.2 mmol/L (3.5-5.1); Protein, Total 4.9 g/dL (6.4-8.2); Sodium Level 142 mmol/L (136-145)
[2019-12-20 06:40] LABS: Macrocytosis 2+; Platelet Estimate ADEQUATE (ADEQ)
[2019-12-20 06:41] LABS: Anisocytosis 1+
--- NOTE | 2019-12-20 07:42 | PN_ITS ---
Patient Problems: Active and Suspected Problems (Last Reviewed 12/17/19 @ 10:[address] Manuelito Baeza MD) Pneumonia (Acute) Subjective: Patient did well overnight. No acute issues were reported. Patient did report significant improvement in dyspnea associated with thoracentesis. Patient did require minimal nasal cannula overnight with sleep, but otherwise has been hemodynamically stable on room air without fever. No bleeding complications have been reported. - Physical Exam Vitals/I&O's: Vital Signs Temp Pulse Resp BP Pulse Ox 36.6 C 104 H 20 H 112/77 94 12/20/19 05:41 12/20/19 05:41 12/20/19 05:41 12/20/19 05:41 12/20/19 05:41 Oxygen Flow Rate (L/min) [6] 2 Oxygen Flow Rate (L/min) [5] 2 Oxygen Flow Rate (L/min) [4] 2 Oxygen Flow Rate (L/min) [3] 2 Oxygen Flow Rate (L/min) [2] 2 Oxygen Flow Rate (L/min) [1 ( 2 Initial Baseline)] Oxygen Flow Rate (L/min) 1 Oxygen Delivery Method [6] Nasal Cannula Oxygen Delivery Method [5] Nasal Cannula Oxygen Delivery Method [4] Nasal Cannula Oxygen Delivery Method [3] Nasal Cannula Oxygen Delivery Method [2] Nasal Cannula Oxygen Delivery Method [1 ( Nasal Cannula Initial Baseline)] Oxygen Delivery Method Room Air Weight: 43.8 kg Body Mass Index (BMI) 16.0 Intake and Output for Last 24 Hours 12/18/19 12/19/19 12/20/19 23:59 23:59 23:59 Intake Total 1263.75 / 1263.75 1287.50 / 1387.50 150 / 150 Output Total 100 / 100 750 / 750 Balance 1163.75 / 1163.75 537.50 / 637.50 150 / 150 General: Alert, Oriented x3, Cooperative, No apparent distress, - - Cachectic. No conversational dyspnea. HEENT: Atraumatic, PERRLA, EOMI, Normocephalic, - - No scleral icterus or injection noted Oral: Moist Mucosa, No Gingival or Mucosal Lesions/ Ulcerations Neck: Supple, No JVD, No Nodes, Trachea Midline Lungs: No rhonchi, No wheeze, No rales, Diminished, - Cardiovascular: Regular rate, Regular Rhythm, Normal S1, Normal S2, Murmur - Symmetric expansion. No dullness to percussion., No rub noted, No Gallop Abdomen: Bowel Sounds Present, Soft, Non Tender, Non-Distended Extremities: No clubbing, No cyanosis, No edema, Capillary Refill Less than 3 Seconds Skin: No rashes Musculoskeletal: Cachexia, Muscle Wasting Lymphatic: No Cervical, Supraclavicular, or Inguinal Adenopathy Neurological: Cranial nerves II-XII grossly intact, Neuro grossly intact, Motor Exam 5/5 strength throughout Psych/Mental Status: Alert and oriented to time, place, person, mood and affect Microbiology Past 72 Hours 12/19/19 11:25 Fluid - Pleural (Lung) Gram Stain - Final 12/17/19 13:45 Sputum, Expectorated/Coughed Gram Stain - Final 12/17/19 13:45 Sputum, Expectorated/Coughed Respiratory Culture - Preliminary Appears to be normal respiratory tate. Further studies to follow. 12/17/19 08:43 Blood Culture (Wb) - Left Forearm Blood Culture - Preliminary No growth in 48 hours. 12/17/19 08:35 Blood Culture (Wb) - Port Blood Culture - Preliminary No growth in 48 hours. 12/17/19 14:40 Urine, Clean Catch Streptococcus pneumoniae Antigen (M - Final 12/17/19 14:40 Urine, Clean Catch Legionella Antigen - Final 12/17/19 10:07 Mucosa - Nose Respiratory Panel (PCR) - Final Laboratory Results 12/18/19 03:05: PTH Intact Pending 12/19/19 08:30: Lactate Dehydrogenase 127, Total Protein 5.3 L, Globulin 2.5, Albumin/Globulin Ratio 1.1 12/19/19 08:30: Sodium 144, Potassium 4.2, Chloride 113 H, Carbon Dioxide 27.0, Anion Gap 4 L, BUN 10, Creatinine 0.28 L, Estim Creat Clear Calc 37.23, Est GFR (MDRD) Af Amer 307, Est GFR (MDRD) Non-Af 253, BUN/Creatinine Ratio 35.6 H, Glucose 87, Calcium 7.5 L, Total Bilirubin 0.70, Direct Bilirubin 0.20, AST 8 L, ALT 8 L, Alkaline Phosphatase 78, Total Protein 5.3 L, Albumin 2.8 L, Globulin 2.5 12/19/19 08:30: Magnesium 1.9, Iron 94, TIBC 284, Iron Saturation 33.1 12/19/19 11:25: Fluid Glucose 91 H, Fluid Total Protein 3.4, Fluid LDH 109 12/19/19 11:25: Fluid pH Pending 12/19/19 11:25: Fluid Source THORACENTESIS, Fluid Color LT YEL, Fluid Appearance CLEAR, Fluid WBC 0.719, Fluid RBC 0.017, Fluid Tot Cell Count 0.822 H, Fld Polynuclear WBCs # 0.434, Fld Polynuclear WBCs % 60.3, Fluid Mononuclear WBCs 0.285, Fld Mononuclear WBCs % 39.7, Fluid Neutrophils 39, Fluid Lymphocytes 7, Fluid Monocytes 38, Fld Mesothelial Cells 16, Fl Pathologist Comment May follow, Fluid Comment 2 SEE COMMENT 12/19/19 11:25: Miscellaneous Cytology Pending 12/20/19 05:40: WBC 9.7, RBC 2.72 L, Hgb 9.1 L, Hct 29.7 L, MCV 109.2 H, MCH 33.5 H, MCHC 30.6 L, RDW Std Deviation 70.7 H, RDW Coeff of Rajni 17.6 H, Plt Count 194, MPV 9.1, Immature Gran % (Auto) 1.400 H, Neut % (Auto) 82.4 H, Lymph % (Auto) 9.6 L, Scurry % (Auto) 5.9, Eos % (Auto) 0.4, Baso % (Auto) 0.3, Absolute Neuts (auto) 8.0 H, Absolute Lymphs (auto) 0.93, Nucleated RBC % 0, Platelet Estimate ADEQUATE, Anisocytosis 1+, Macrocytosis 2+ 12/20/19 05:40: Sodium 142, Potassium 4.2, Chloride 111 H, Carbon Dioxide 26.0, Anion Gap 5, BUN 10, Creatinine 0.29 L, Estim Creat Clear Calc 37.23, Est GFR (MDRD) Af Amer 293, Est GFR (MDRD) Non-Af 242, BUN/Creatinine Ratio 34.2 H, Glucose 86, Calcium 7.7 L, Phosphorus 2.9, Magnesium 1.7, Total Bilirubin 0.60, AST 9 L, ALT 9 L, Alkaline Phosphatase 69, Total Protein 4.9 L, Albumin 2.5 L, Globulin 2.4, Albumin/Globulin Ratio 1.0 12/20/19 05:40: Vit D 1,25-Dihydroxy Pending Current Medications Acetaminophen (Tylenol) 650 mg PO Q6H PRN PRN PRN Reason: Pain Score 1-10/Temp > 100.7 F Al Hydroxide/Mg Hydroxide (Mylanta Ii) 30 ml PO Q6H PRN PRN PRN Reason: Gastric Burning Albuterol Sulfate (Ventolin Aerosols) 2.5 mg INHALATION Q2H PRN PRN PRN Reason: Shortness of Breath/Wheezing Calcium/Vitamin D (Os-Flash 500mg + D) 1 tablet PO BIDCM [facility] Last Admin: 12/19/19 19:03 Dose: 1 tablet Documented by: Enoxaparin Sodium (Lovenox) 40 mg SC Q24 [facility] Last Admin: 12/19/19 11:56 Dose: 40 mg Documented by: Guaifenesin (Robitussin) 20 ml PO Q4H PRN PRN PRN Reason: COUGH Heparin Sodium (Beef Lung) () 50 units IV UD PRN PRN Reason: Port-a-Cath (VAD)Heparin Flush Cefepime HCl 2 gm/ Sodium (Chloride) 100 mls @ 200 mls/hr IV Q12 [facility] Stop: 12/24/19 14:01 Last Infusion: 12/19/19 22:51 Dose: Infused Documented by: Sodium Chloride () 250 mls @ 15 mls/hr IV .[id number] PRN PRN Reason: Saline Flush Last Infusion: 12/19/19 23:20 Dose: 0 mls/hr Documented by: Sodium Chloride () 250 mls @ 15 mls/hr IV .[id number] PRN PRN Reason: Additional IVPB Infusion Last Infusion: 12/19/19 18:26 Dose: Infused Documented by: Magnesium Sulfate 2 gm/ Sodium (Chloride) 104 mls @ 52 mls/hr IV X1 ONE Stop: 12/20/19 09:00 Magnesium Hydroxide (Milk Of Magnesia) 30 ml PO DAILY PRN PRN PRN Reason: Constipation Melatonin (Melatonin) 3 mg PO QHS PRN PRN PRN Reason: INSOMNIA Nutritional Formula (Lactose Free) (Ensure Clear) 120 ml PO TIDCM [facility] Last Admin: 12/19/19 18:01 Dose: Not Given Documented by: Ondansetron HCl (Zofran) 4 mg IV Q8H PRN PRN PRN Reason: NAUSEA/VOMITING Potassium Chloride (K-Dur) 20 meq PO BIDCM [facility] Last Admin: 12/19/19 19:03 Dose: 20 meq Documented by: Pregabalin (Lyrica) 50 mg PO QHS [facility] Last Admin: 12/19/19 22:16 Dose: 50 mg Documented by: Sodium Chloride () 10 - 40 ml IV UD PRN PRN Reason: Port-a-Cath (VAD) Flush Last Admin: 12/20/19 05:41 Dose: 40 ml Documented by: Sodium Chloride (0.9% Nacl (Sterile) Posiflush) 10 - 40 ml IV UD PRN PRN Reason: Port access or dressing change Tramadol HCl (Ultram) 50 mg PO Q6H PRN PRN PRN Reason: Pain Score 4-10/10 Last Admin: 12/19/19 19:04 Dose: 50 mg Documented by: Clinical Impression(s) from Imaging Studies Thoracentesis Ultrasound 12/19/19 08:00 IMPRESSION: Ultrasound-guided left thoracentesis. Electronically Signed: Nick Torres, at 12:15 EDT , Service support , Chest X-Ray 12/19/19 11:30 IMPRESSION: No evidence of pneumothorax following a left thoracentesis. Electronically Signed: Nick Torres at 12:34 EDT , Service support , Medical Necessity - Tobacco Use Smoking Status: Never smoker Assessment/Plan All Active Problems (Last Reviewed 12/17/19 @ 10:[address] Manuelito Baeza MD) Pneumonia (Acute) Pleural effusion on left (Acute 12/06/19) Encounter for education (Resolved) Encounter for insertion of venous access port (Resolved) RECOMMENDATIONS: 1. Obtain a walking oximetry prior to discharge 2. Consider repeat chest x-ray in 2 to 4 weeks to evaluate for need for rep eated thoracentesis 3. Okay to discharge from a pulmonary perspective. 4. Wean supplemental oxygen to maintain saturations at or above 90%. Encourage incentive spirometer use and mobilize patient as tolerated. 5. Would not recommend Pleurx catheter at this time unless patient requires repeated thoracentesis IMPRESSIONS: 1. Acute hypoxemic respiratory insufficiency secondary to exudative pleural effusion Patient has been doing relatively well overnight. Patient does have bilateral pleural effusions with possible airspace disease. Patient does have extensive metastatic disease, so malignant pleural effusion is high in the differential. Pleural effusion is exudative by light's criteria. Await cytology, but has a high probability of recurrence. Recommend repeating chest x-ray in 2 to 4 weeks. Patient should have a walking oximetry prior to discharge. Patient may require supplemental oxygen on discharge and was instructed on appropriate use of oxygen. Patient could follow-up as an outpatient if necessary/requested, but anticipate malignancy leading to current findings with little outpatient optimization outside of monitoring for recurrence of suspected malignant pleural effusion. 2. History of metastatic breast cancer The patient is currently being followed by Dr. Carrera of oncology. She remains on systemic chemotherapy. 3. Anemia/protein calorie malnutrition Complicates care, management, recovery and prognosis. Continue to monitor blood counts daily. No current indication for transfusion of blood products. Inpatient E&M: 13052 Subs Hosp L2
--- NOTE | 2019-12-20 07:48 | CPS ---
Pt will need light portable oxygen carrier for ambulating to Dr appointments, etc. She is unable to safely walk with an O2 tank. She recovered after 2 minutes of rest to 92% on room air.
[2019-12-20] MEDS: Calcium Carb/Vitamin D 1 TABLET Tablet PO (07:49)
[2019-12-20 09:12] LABS: PTHIN 343.5 pg/mL (18.4-80.1)
[2019-12-20 10:09] LABS: LDH 122 U/L (84-246)
[2019-12-20] MEDS: Enoxaparin 40 MG/0.4 ML Syringe SC (10:33)
[2019-12-20] MEDS: Carvedilol 3.125 MG TABLET PO (10:52)
[2019-12-20 11:15] LABS: Pathologist Comment/Body Fluid Reviewed
--- NOTE | 2019-12-20 11:26 | DCINST_ITS ---
- Discharge Diagnoses Current Active Problems: Current Active and Chronic Problems (Last Reviewed 12/17/19 @ 10:[address] Manuelito Baeza MD) Pneumonia (Acute) Reason(s) for Visit for Discharge Instructions: Bilateral pleural effusion You will use the following diet at home:: Regular Your food should be the consistency of: Regular Your liquids should be the consistency of: Regular/Thin Discharge Activity: Return to Normal Activity Additional Instructions: Continue to take all your medications. Follow-up with Dr Ruby in 2 weeks. Follow-up with Dr. Carrera as scheduled. Continue to use your incentive spirometer. Allergies/Adverse Reactions: Allergies No Known Allergies Allergy (Verified 12/17/19 07:09) Medications to take at Discharge Calcium 1 tab PO DAILY 04/18/19 Pregabalin [Lyrica] 50 mg PO QHS 04/19/19 traMADol [Ultram] 50 mg PO QHS 04/19/19 Cholecalciferol (VIT D3) [Vitamin D3] 1,000 unit PO DAILY 06/23/19 carvedilol 3.125 mg tablet 3.125 mg PO BID #60 tab 12/15/19 Ensure Clear 120 ml PO TIDCM 30 Days #120 liquid 12/20/19 Guaifenesin [Robitussin] 20 ml PO Q4H PRN PRN 7 Days #1 bottle 12/20/19 Potassium Chloride [K-Dur] 20 meq PO BIDCM #14 tab 12/20/19 The following prescriptions were given: Ensure Clear 120 ml PO TIDCM 30 Days #120 liquid Potassium Chloride [K-Dur] 20 meq PO BIDCM #14 tab Transmission Status: Received by [facility]ARD[facility] Guaifenesin [Robitussin] 20 ml PO Q4H PRN PRN 7 Days #1 bottle PRN Reason: COUGH Transmission Status: Received by JERARDO BOATENG [facility] Primary Care Physician: Golden Goldsmith Chi, MD [Primary Care Provider] - Please follow up with your Primary Care Physician in: within 1-2 weeks Test Results: Test results from this visit will be discussed in further detail at your follow- up appointment, if applicable. Proposed Discharge Date: 12/20/19
--- NOTE | 2019-12-20 11:32 | DS.PCM_ITS ---
Discharge Date and Diagnosis Date of Admission: 12/17/19 Date of Discharge: 12/20/19 - Primary Discharge Diagnosis Acute Problems: Active Problems (Last Reviewed 12/17/19 @ 10:[address] Manuelito Baeza MD) Bilateral pleural effusion, exudative in etiology Pneumonia Anemia Hypocalcemia Severe protein calorie malnutrition - Secondary Discharge Diagnosis Chronic Problems: Chronic Problems (Last Reviewed 12/17/19 @ 10:[address] Manuelito Baeza MD) Tachycardia (Chronic) Cyanotic fingertip (Chronic) Dyspnea (Chronic) Chest pain (Chronic) Carcinoma of right breast metastatic to bone (Chronic) Chemotherapy management, encounter for (Chronic) Brain metastases (Chronic) Anemia (Chronic) CARCINOMA OF RIGHT BREAST METASTATIC TO BONE Hospital Course and Treatment Imaging Results: Clinical Impression(s) from Imaging Studies Chest X-Ray 12/17/19 08:07 IMPRESSION: No significant interval change in opacities at both lung bases and likely bilateral effusions. Underlying infectious processes aren''t excluded. Dense appearing skeleton may be related to metastatic disease as noted on prior reports. Electronically Signed: Florencio Reno, at 8:35 EDT Tel , Service support , Chest CTA 12/17/19 10:06 IMPRESSION: 1. No evidence of pulmonary embolism. 2. Bilateral infiltrates/edema worse than the previous examination with infiltrates in the lower lungs and loss of volume. 3. Moderate to large bilateral pleural effusions increased since previous examination. 4. Extensive diffuse metastatic bone disease. Electronically Signed: Francisco J Stubbs MD at 11:06 EDT Tel , Service support , Thoracentesis Ultrasound 12/19/19 08:00 IMPRESSION: Ultrasound-guided left thoracentesis. Electronically Signed: Nick Torres, at 12:15 EDT , Service support , Chest X-Ray 12/19/19 11:30 IMPRESSION: No evidence of pneumothorax following a left thoracentesis. Electronically Signed: Nick Torres, at 12:34 EDT , Service support , Infectious disease Pulmonology Operations: None Procedures: 2-D Echocardiogram, Thoracentesis Summary of Care Provided: The patient is a 69 year old F past medical history of metastatic breast CA, status post chemo/radiotherapy comes in with progressive shortness of breath. Patient had recently undergone thoracocentesis on 11/13/19. Work-up in the ED showed CT of the chest was negative for acute PE showed bilateral moderate to large pleural effusions with infiltrates.. She underwent CO VID testing that was negative. She was also started broad-spectrum antibiotics. Patient underwent thoracocentesis that was exudative in nature. Cytology from thoracocentesis was negative for malignant cells. She did qualify for oxygen at discharge. She will follow-up with pulmonology in the outpatient as well as with oncology. Subjective: On the day of discharge, patient was seen and examined. Denied any new complaints. Objective: Physical exam: General: Alert, Oriented x3, Cooperative, - - cachetic, pale HEENT: Atraumatic, PERRLA, EOMI, Normocephalic Oral: Moist Mucosa Neck: Supple Lungs: Diminished - bilaterally, more in the right middle and lower lung zomes Cardiovascular: Regular rate, Regular Rhythm, Normal S1, Normal S2, Tachycardic Abdomen: Bowel Sounds Present, Soft, Non Tender, Non-Distended, No Hepato- splenomegaly Extremities: No edema Skin: No rashes Musculoskeletal: No Tenderness to Palpation of Joints or Extremities Lymphatic: No Cervical, Supraclavicular, or Inguinal Adenopathy Neurological: Cranial nerves II-XII grossly intact, Neuro grossly intact Psych/Mental Status: Normal Affect, Appropriate - Physical Exam Vitals/I&O's: Vital Signs Temp Pulse Resp BP Pulse Ox 97.5 F L 117 H 18 120/79 98 12/20/19 10:55 12/20/19 10:55 12/20/19 10:55 12/20/19 10:55 12/20/19 10:55 Oxygen Flow Rate (L/min) [6] 2 Oxygen Flow Rate (L/min) [5] 2 Oxygen Flow Rate (L/min) [4] 2 Oxygen Flow Rate (L/min) [3] 2 Oxygen Flow Rate (L/min) [2] 2 Oxygen Flow Rate (L/min) [1 ( 2 Initial Baseline)] Oxygen Flow Rate (L/min) [ 3 AMBULATION with Oxygen] Oxygen Flow Rate (L/min) 1 Oxygen Delivery Method [6] Nasal Cannula Oxygen Delivery Method [5] Nasal Cannula Oxygen Delivery Method [4] Nasal Cannula Oxygen Delivery Method [3] Nasal Cannula Oxygen Delivery Method [2] Nasal Cannula Oxygen Delivery Method [1 ( Nasal Cannula Initial Baseline)] Oxygen Delivery Method Room Air Weight: 43.8 kg Body Mass Index (BMI) 16.0 Intake and Output for Last 24 Hours 12/18/19 12/19/19 12/20/19 23:59 23:59 23:59 Intake Total 1263.75 / 1263.75 1287.50 / 1387.50 358.25 / 358.25 Output Total 100 / 100 750 / 750 Balance 1163.75 / 1163.75 537.50 / 637.50 358.25 / 358.25 Microbiology Past 72 Hours 12/19/19 11:25 Fluid - Pleural (Lung) Gram Stain - Final 12/17/19 13:45 Sputum, Expectorated/Coughed Gram Stain - Final 12/17/19 13:45 Sputum, Expectorated/Coughed Respiratory Culture - Preliminary Appears to be normal respiratory tate. Further studies to follow. 12/17/19 08:43 Blood Culture (Wb) - Left Forearm Blood Culture - Preliminary No growth in 48 hours. 12/17/19 08:35 Blood Culture (Wb) - Port Blood Culture - Preliminary No growth in 48 hours. 12/17/19 14:40 Urine, Clean Catch Streptococcus pneumoniae Antigen (M - Final 12/17/19 14:40 Urine, Clean Catch Legionella Antigen - Final 12/17/19 10:07 Mucosa - Nose Respiratory Panel (PCR) - Final Laboratory Results 12/18/19 03:05: PTH Intact 343.5 H 12/19/19 08:30: Lactate Dehydrogenase 127, Total Protein 5.3 L, Globulin 2.5, Albumin/Globulin Ratio 1.1 12/19/19 08:30: Magnesium 1.9, Iron 94, TIBC 284, Iron Saturation 33.1 12/19/19 11:25: Fluid Glucose 91 H, Fluid Total Protein 3.4, Fluid LDH 109 12/19/19 11:25: Fluid pH Pending 12/19/19 11:25: Fluid Source THORACENTESIS, Fluid Color LT YEL, Fluid Appearance CLEAR, Fluid WBC 0.719, Fluid RBC 0.017, Fluid Tot Cell Count 0.822 H, Fld Polynuclear WBCs # 0.434, Fld Polynuclear WBCs % 60.3, Fluid Mononuclear WBCs 0.285, Fld Mononuclear WBCs % 39.7, Fluid Neutrophils 39, Fluid Lymphocytes 7, Fluid Monocytes 38, Fld Mesothelial Cells 16, Fl Pathologist Comment Reviewed, Fluid Comment 2 SEE COMMENT 12/19/19 11:25: Miscellaneous Cytology Pending 12/20/19 05:40: WBC 9.7, RBC 2.72 L, Hgb 9.1 L, Hct 29.7 L, MCV 109.2 H, MCH 33.5 H, MCHC 30.6 L, RDW Std Deviation 70.7 H, RDW Coeff of Rajni 17.6 H, Plt Count 194, MPV 9.1, Immature Gran % (Auto) 1.400 H, Neut % (Auto) 82.4 H, Lymph % (Auto) 9.6 L, [place] % (Auto) 5.9, Eos % (Auto) 0.4, Baso % (Auto) 0.3, Absolute Neuts (auto) 8.0 H, Absolute Lymphs (auto) 0.93, Nucleated RBC % 0, Platelet Estimate ADEQUATE, Anisocytosis 1+, Macrocytosis 2+ 12/20/19 05:40: Sodium 142, Potassium 4.2, Chloride 111 H, Carbon Dioxide 26.0, Anion Gap 5, BUN 10, Creatinine 0.29 L, Estim Creat Clear Calc 37.23, Est GFR (MDRD) Af Amer 293, Est GFR (MDRD) Non-Af 242, BUN/Creatinine Ratio 34.2 H, Glucose 86, Calcium 7.7 L, Phosphorus 2.9, Magnesium 1.7, Total Bilirubin 0.60, AST 9 L, ALT 9 L, Alkaline Phosphatase 69, Total Protein 4.9 L, Albumin 2.5 L, Globulin 2.4, Albumin/Globulin Ratio 1.0 12/20/19 05:40: Vit D 1,25-Dihydroxy Pending 12/20/19 05:40: Lactate Dehydrogenase 122 Current Medications Acetaminophen (Tylenol) 650 mg PO Q6H PRN PRN PRN Reason: Pain Score 1-10/Temp > 100.7 F Al Hydroxide/Mg Hydroxide (Mylanta Ii) 30 ml PO Q6H PRN PRN PRN Reason: Gastric Burning Albuterol Sulfate (Ventolin Aerosols) 2.5 mg INHALATION Q2H PRN PRN PRN Reason: Shortness of Breath/Wheezing Calcium/Vitamin D (Os-Flash 500mg + D) 1 tablet PO BIDCM [facility] Last Admin: 12/20/19 07:49 Dose: 1 tablet Documented by: Carvedilol (Coreg) 3.125 mg PO BID [facility] Last Admin: 12/20/19 10:52 Dose: 3.125 mg Documented by: Enoxaparin Sodium (Lovenox) 40 mg SC Q24 [facility] Last Admin: 12/20/19 10:33 Dose: 40 mg Documented by: Guaifenesin (Robitussin) 20 ml PO Q4H PRN PRN PRN Reason: COUGH Heparin Sodium (Beef Lung) () 50 units IV UD PRN PRN Reason: Port-a-Cath (VAD)Heparin Flush Cefepime HCl 2 gm/ Sodium (Chloride) 100 mls @ 200 mls/hr IV Q12 [facility] Stop: 12/24/19 14:01 Last Infusion: 12/20/19 11:07 Dose: Infused Documented by: Sodium Chloride () 250 mls @ 15 mls/hr IV .[id number] PRN PRN Reason: Saline Flush Last Infusion: 12/20/19 11:07 Dose: 15 mls/hr Documented by: Sodium Chloride () 250 mls @ 15 mls/hr IV .[id number] PRN PRN Reason: Additional IVPB Infusion Last Infusion: 12/19/19 18:26 Dose: Infused Documented by: Magnesium Hydroxide (Milk Of Magnesia) 30 ml PO DAILY PRN PRN PRN Reason: Constipation Melatonin (Melatonin) 3 mg PO QHS PRN PRN PRN Reason: INSOMNIA Nutritional Formula (Lactose Free) (Ensure Clear) 120 ml PO TIDCM [facility] Last Admin: 12/20/19 07:49 Dose: Not Given Documented by: Ondansetron HCl (Zofran) 4 mg IV Q8H PRN PRN PRN Reason: NAUSEA/VOMITING Potassium Chloride (K-Dur) 20 meq PO BIDCM [facility] Last Admin: 12/20/19 07:49 Dose: 20 meq Documented by: Pregabalin (Lyrica) 50 mg PO QHS [facility] Last Admin: 12/19/19 22:16 Dose: 50 mg Documented by: Sodium Chloride () 10 - 40 ml IV UD PRN PRN Reason: Port-a-Cath (VAD) Flush Last Admin: 12/20/19 07:50 Dose: 10 ml Documented by: Sodium Chloride (0.9% Nacl (Sterile) Posiflush) 10 - 40 ml IV UD PRN PRN Reason: Port access or dressing change Tramadol HCl (Ultram) 50 mg PO Q6H PRN PRN PRN Reason: Pain Score 4-10/10 Last Admin: 12/19/19 19:04 Dose: 50 mg Documented by: Discharge Diet: No Restrictions Discharge Activity: Return to Normal Activity Home Medications: Medications to take at Discharge Calcium 1 tab PO DAILY 04/18/19 Pregabalin [Lyrica] 50 mg PO QHS 04/19/19 traMADol [Ultram] 50 mg PO QHS 04/19/19 Cholecalciferol (VIT D3) [Vitamin D3] 1,000 unit PO DAILY 06/23/19 carvedilol 3.125 mg tablet 3.125 mg PO BID #60 tab 12/15/19 Ensure Clear 120 ml PO TIDCM 30 Days #120 liquid 12/20/19 Guaifenesin [Robitussin] 20 ml PO Q4H PRN PRN 7 Days #1 bottle 12/20/19 Potassium Chloride [K-Dur] 20 meq PO BIDCM #14 tab 12/20/19 Following Prescrptions Were Given to Patient: Ensure Clear 120 ml PO TIDCM 30 Days #120 liquid Potassium Chloride [K-Dur] 20 meq PO BIDCM #14 tab Transmission Status: Received by JERARDO STEVEN RD Guaifenesin [Robitussin] 20 ml PO Q4H PRN PRN 7 Days #1 bottle PRN Reason: COUGH Transmission Status: Received by JERARDO STEVEN RD Primary Care Physician: Golden Goldsmith Chi, MD [Primary Care Provider] - Please follow up with your Primary Care Physician in: within 1-2 weeks Disposition: Home with Home Health Minutes spent on discharge:: 45 Patient Condition:: Stable Medical Necessity - Tobacco Use Smoking Status: Never smoker Tobacco Use: Non-smoker Meaningful Use Info Meaningful Use Diagnoses (Choose all that apply): None applicable Inpatient E&M: 37922 Disch Hosp
--- NOTE | 2019-12-20 11:42 | PCM.PN.ID ---
Patient Problems: Active and Suspected Problems (Last Reviewed 12/17/19 @ 10:[address] Manuelito Baeza MD) Pneumonia (Acute) Subjective: Feeling ok, less dyspnea, reports 2 loose stool this AM, no fever, no abd pain - Physical Exam Vitals/I&O's: Vital Signs Temp Pulse Resp BP Pulse Ox 97.5 F L 117 H 18 120/79 98 12/20/19 10:55 12/20/19 10:55 12/20/19 10:55 12/20/19 10:55 12/20/19 10:55 Oxygen Flow Rate (L/min) [6] 2 Oxygen Flow Rate (L/min) [5] 2 Oxygen Flow Rate (L/min) [4] 2 Oxygen Flow Rate (L/min) [3] 2 Oxygen Flow Rate (L/min) [2] 2 Oxygen Flow Rate (L/min) [1 ( 2 Initial Baseline)] Oxygen Flow Rate (L/min) [ 3 AMBULATION with Oxygen] Oxygen Flow Rate (L/min) 1 Oxygen Delivery Method [6] Nasal Cannula Oxygen Delivery Method [5] Nasal Cannula Oxygen Delivery Method [4] Nasal Cannula Oxygen Delivery Method [3] Nasal Cannula Oxygen Delivery Method [2] Nasal Cannula Oxygen Delivery Method [1 ( Nasal Cannula Initial Baseline)] Oxygen Delivery Method Room Air Weight: 43.8 kg Body Mass Index (BMI) 16.0 Intake and Output for Last 24 Hours 12/18/19 12/19/19 12/20/19 23:59 23:59 23:59 Intake Total 1263.75 / 1263.75 1287.50 / 1387.50 358.25 / 358.25 Output Total 100 / 100 750 / 750 Balance 1163.75 / 1163.75 537.50 / 637.50 358.25 / 358.25 General: Alert, Cooperative, No apparent distress Lungs: Clear to auscultation, Normal air movement, Diminished Cardiovascular: Regular rate, Regular Rhythm Abdomen: Soft, Non Tender, Non-Distended Skin: No rashes Microbiology Past 72 Hours 12/19/19 11:25 Fluid - Pleural (Lung) Gram Stain - Final 12/19/19 11:25 Fluid - Pleural (Lung) Body Fluid Culture - Preliminary No growth-Final to follow 12/17/19 13:45 Sputum, Expectorated/Coughed Gram Stain - Final 12/17/19 13:45 Sputum, Expectorated/Coughed Respiratory Culture - Preliminary Appears to be normal respiratory tate. Further studies to follow. 12/17/19 08:43 Blood Culture (Wb) - Left Forearm Blood Culture - Preliminary No growth in 48 hours. 12/17/19 08:35 Blood Culture (Wb) - Port Blood Culture - Preliminary No growth in 48 hours. 12/17/19 14:40 Urine, Clean Catch Streptococcus pneumoniae Antigen (M - Final 12/17/19 14:40 Urine, Clean Catch Legionella Antigen - Final 12/17/19 10:07 Mucosa - Nose Respiratory Panel (PCR) - Final Laboratory Results 12/18/19 03:05: PTH Intact 343.5 H 12/19/19 08:30: Lactate Dehydrogenase 127, Total Protein 5.3 L, Globulin 2.5, Albumin/Globulin Ratio 1.1 12/19/19 08:30: Magnesium 1.9, Iron 94, TIBC 284, Iron Saturation 33.1 12/19/19 11:25: Fluid Glucose 91 H, Fluid Total Protein 3.4, Fluid LDH 109 12/19/19 11:25: Fluid Source THORACENTESIS, Fluid Color LT YEL, Fluid Appearance CLEAR, Fluid WBC 0.719, Fluid RBC 0.017, Fluid Tot Cell Count 0.822 H, Fld Polynuclear WBCs # 0.434, Fld Polynuclear WBCs % 60.3, Fluid Mononuclear WBCs 0.285, Fld Mononuclear WBCs % 39.7, Fluid Neutrophils 39, Fluid Lymphocytes 7, Fluid Monocytes 38, Fld Mesothelial Cells 16, Fl Pathologist Comment Reviewed, Fluid Comment 2 SEE COMMENT 12/20/19 05:40: WBC 9.7, RBC 2.72 L, Hgb 9.1 L, Hct 29.7 L, MCV 109.2 H, MCH 33.5 H, MCHC 30.6 L, RDW Std Deviation 70.7 H, RDW Coeff of Rajni 17.6 H, Plt Count 194, MPV 9.1, Immature Gran % (Auto) 1.400 H, Neut % (Auto) 82.4 H, Lymph % (Auto) 9.6 L, [place] % (Auto) 5.9, Eos % (Auto) 0.4, Baso % (Auto) 0.3, Absolute Neuts (auto) 8.0 H, Absolute Lymphs (auto) 0.93, Nucleated RBC % 0, Platelet Estimate ADEQUATE, Anisocytosis 1+, Macrocytosis 2+ 12/20/19 05:40: Sodium 142, Potassium 4.2, Chloride 111 H, Carbon Dioxide 26.0, Anion Gap 5, BUN 10, Creatinine 0.29 L, Estim Creat Clear Calc 37.23, Est GFR (MDRD) Af Amer 293, Est GFR (MDRD) Non-Af 242, BUN/Creatinine Ratio 34.2 H, Glucose 86, Calcium 7.7 L, Phosphorus 2.9, Magnesium 1.7, Total Bilirubin 0.60, AST 9 L, ALT 9 L, Alkaline Phosphatase 69, Total Protein 4.9 L, Albumin 2.5 L, Globulin 2.4, Albumin/Globulin Ratio 1.0 12/20/19 05:40: Vit D 1,25-Dihydroxy Pending 12/20/19 05:40: Lactate Dehydrogenase 122 Current Medications Acetaminophen (Tylenol) 650 mg PO Q6H PRN PRN PRN Reason: Pain Score 1-10/Temp > 100.7 F Al Hydroxide/Mg Hydroxide (Mylanta Ii) 30 ml PO Q6H PRN PRN PRN Reason: Gastric Burning Albuterol Sulfate (Ventolin Aerosols) 2.5 mg INHALATION Q2H PRN PRN PRN Reason: Shortness of Breath/Wheezing Calcium/Vitamin D (Os-Flash 500mg + D) [facility] tablet [facility] Last Admin: 12/20/19 07:49 Dose: 1 tablet Documented by: Carvedilol (Coreg) 3.125 mg PO BID [facility] Last Admin: 12/20/19 10:52 Dose: 3.125 mg Documented by: Enoxaparin Sodium (Lovenox) 40 mg SC Q24 [facility] Last Admin: 12/20/19 10:33 Dose: 40 mg Documented by: Guaifenesin (Robitussin) 20 ml PO Q4H PRN PRN PRN Reason: COUGH Heparin Sodium (Beef Lung) () 50 units IV UD PRN PRN Reason: Port-a-Cath (VAD)Heparin Flush Cefepime HCl 2 gm/ Sodium (Chloride) 100 mls @ 200 mls/hr IV Q12 [facility] Stop: 12/24/19 14:01 Last Infusion: 12/20/19 11:07 Dose: Infused Documented by: Sodium Chloride () 250 mls @ 15 mls/hr IV .[id number] PRN PRN Reason: Saline Flush Last Infusion: 12/20/19 11:07 Dose: 15 mls/hr Documented by: Sodium Chloride () 250 mls @ 15 mls/hr IV .[id number] PRN PRN Reason: Additional IVPB Infusion Last Infusion: 12/19/19 18:26 Dose: Infused Documented by: Magnesium Hydroxide (Milk Of Magnesia) 30 ml PO DAILY PRN PRN PRN Reason: Constipation Melatonin (Melatonin) 3 mg PO QHS PRN PRN PRN Reason: INSOMNIA Nutritional Formula (Lactose Free) (Ensure Clear) 120 ml PO TIDCM [facility] Last Admin: 12/20/19 07:49 Dose: Not Given Documented by: Ondansetron HCl (Zofran) 4 mg IV Q8H PRN PRN PRN Reason: NAUSEA/VOMITING Potassium Chloride (K-Dur) 20 meq PO BIDCM [facility] Last Admin: 12/20/19 07:49 Dose: 20 meq Documented by: Pregabalin (Lyrica) 50 mg PO QHS [facility] Last Admin: 12/19/19 22:16 Dose: 50 mg Documented by: Sodium Chloride () 10 - 40 ml IV UD PRN PRN Reason: Port-a-Cath (VAD) Flush Last Admin: 12/20/19 07:50 Dose: 10 ml Documented by: Sodium Chloride (0.9% Nacl (Sterile) Posiflush) 10 - 40 ml IV UD PRN PRN Reason: Port access or dressing change Tramadol HCl (Ultram) 50 mg PO Q6H PRN PRN PRN Reason: Pain Score 4-10/10 Last Admin: 12/19/19 19:04 Dose: 50 mg Documented by: Medical Necessity - Tobacco Use Smoking Status: Never smoker Route of nutrition/ use of supplements: [] Nutritional Intake: [] IV Site: [] Quesada Catheter: [] - Assessment/Plan Antibiotics: [] Assessment/Plan: [] Active and Suspected Problems (Last Reviewed 12/17/19 @ 10:[address] Manuelito Baeza MD) Pneumonia (Acute) COVID neg x2, out of isolation, low suspicion for viral infection. CTA was neg for PE. Wbc much improved, no fever here. Repeat thoracentesis done, cytology neg, but suspect related to malignancy. Sputum with normal tate so far. PCT was 0.05. Ok for d/c home off of abx; having some diarrhea so trying to avoid worsening any potential side effects without any clear evidence of bacterial infection. Will follow as needed, d/w primary team
--- NOTE | 2019-12-20 12:06 | CASEMGMT ---
RN CM Note: call to [facility]. Updated that pt is returning home today, They will try to see patient prior to Thursday and will set up with patient. Khoa VALLESN RN ACM
--- NOTE | 2019-12-21 15:31 | CASEMGMT ---
MARILOU CHACON Discharge Follow-Up Phone Call. Rola: Dashawn Strata: 3 Discharge Date: 12/20/19 Adm Dx: Dyspnea Call to pt to inquire about how she has been doing since being discharged from the hospital. Pt stated, Doing fine. She states she was able to tack picker her prescriptions and has no questions about them or her other medications. She states she already has some Ensure clear at home. She states she has not made an appt w/Dr Goldsmith yet, but she is aware she needs to do this yet. She states she is awaiting a video appt at this time re: MRI results. [facility] to do start of care on Thursday. Pt states she has their contact information if she would need to talk with someone before then. She denies having any questions about the discharge instructions, and denies concerns/needs at this time. Brooke ROSENBERG RN, CM
[2019-12-21 23:55] LABS: pH, Body Fluid 11254 7.4 (Not Estab.)
== END 2019-12-20 14:23 | disposition home or self-care (01) | DRG 186 ==
LOC: ED 08:46 → ICU 09:57 → MS3 12-19 15:43
PROVIDERS: Admitting Provider Internal Medicine; Emergency Provider Emergency Medicine; PCP Family Medicine Geriatric Medicine; Visit Provider Internal Medicine
DX: J90 Pleural effusion, not elsewhere classified (principal); J18.9 Pneumonia, unspecified organism; E43 Unspecified severe protein-calorie malnutrition; C79.51 Secondary malignant neoplasm of bone; C79.31 Secondary malignant neoplasm of brain; Z68.1 Body mass index [BMI] 19.9 or less, adult; D64.9 Anemia, unspecified; E83.51 Hypocalcemia; Z85.3 Personal history of malignant neoplasm of breast; R00.0 Tachycardia, unspecified; Z79.899 Other long term (current) drug therapy; Z90.11 Acquired absence of right breast and nipple; Z66 Do not resuscitate; R09.02 Hypoxemia; R06.89 Other abnormalities of breathing
CPT/HCPCS: 32555; 36415; 36591; 70553; 71045; 71046; 71275; 80048; 80053; 80076; 82550; 82652; 82945; 83540; 83550; 83605; 83615; 83735; 83880; 83970; 83986; 84100; 84145; 84156; 84157; 84484; 85025; 85379; 85384; 85610; 86140; 87040; 87070; 87075; 87077; 87205; 87449; 87633; 87635; 87641; 88108; 88305; 88313; 89050; 93005; 93306; 97162; 97166; 97530; 99285; A9575; G2023; J7040; J7050; Q9967; A4216; J0610; U0003

== ENCOUNTER 2019-12-31 14:25 | Inpatient (IN) | payer MEDICARE, OTHER, SELFPAY ==
[2019-04-18 14:31] VITALS: BMI 15.3
[2019-12-26 11:03] VITALS: BMI 16.0
[2019-12-31] VITALS (15 sets, daily range): BP systolic 94–109; BP diastolic 64–82; PULSE 101–122; RESP 14–24; TEMP 36.1–37.1; O2SAT 94–100; BMI 15.6; BMI 15.7; BMI 15.8
--- NOTE | 2019-12-31 15:15 | EKG12_ITS ---
Test Reason : DYSRHYTHMIA Blood Pressure : / mmHG Vent. Rate : 102 BPM Atrial Rate : 102 BPM P-R Int : 162 ms QRS Dur : 066 ms QT Int : 374 ms P-R-T Axes : 060 080 078 degrees QTc Int : 487 ms Sinus tachycardia Low voltage QRS Borderline ECG Confirmed by DRE BEAVER, KELLIE ([id number]), design editor SHYANNE ROYAL ([id number]) on 01/03/2020 10:39:36 AM Referred By: KIRSTEN Confirmed By:KELLIE ERICKSON MD
[2019-12-31] MEDS: 0.9% Normal Saline 1,000 ML 999 ML IV (15:36)
[2019-12-31] MEDS: Ondansetron 4 MG/2 ML Vial IV (15:36)
[2019-12-31] MEDS: Morphine 4 MG/ML Syringe IV (15:37)
--- NOTE | 2019-12-31 15:44 | ED.VISSUMM ---
- ER Visit Summary Date of Service: 12/31/19 Chief Complaint: Shortness of breath History of Present Illness: The patient is a [address] Goldsmith, Dr. Carrera, and Dr. Edmond. She has a history of breast cancer with metastases to the bones and brain. She is had recurrent pleural effusions. She reports that she is had shortness of breath for 2 months. It is worsened over the past 2 weeks. Severe at worst moderate currently. Is worsened by exertion, laying flat, or coughing. She reports that she has a thought cough that was productive of thick sputum that was yellow, but that sputum has now resolved. She has had chills without fever. She reports has had constant chest pain for the past 2 days. 6 out of 10 at worst and 4-10 currently. She describes it as dull. Is increased with coughing. Patient reports that she was at [facility] for radiation 2 days ago when she was unable to undergo radiation because she was so short of breath. She was sent to the emergency department where she had an extensive evaluation undertaken including a CT of the chest. She did not have a PE. However, she had bilateral pleural effusions and pneumonia. They wanted to admit her to the hospital. She refused and wanted to come back to [place]. She is on doxycycline and Zithromax. She has not gotten any improvement. In fact, she reports that she is worsening. Physical Examination: Vitals: 97.8, 102/82, 109, 16, 99% on 2 L nasal cannula.. General: Well-developed, but cachectic. Head: Normocephalic atraumatic. Neck: Supple, no lymphadenopathy. No JVD. Nontender. Cardiovascular: Regular rate and rhythm. No murmurs. Respiratory: No respiratory distress. Decreased breath sounds at the bases bilaterally. Abdominal: Soft, nontender, nondistended, normal bowel sounds. No guarding, rebound, or peritoneal signs. Back: Nontender. Extremities: Nontender, no edema. Skin: Normal color, no rash. Neurologic: Alert and oriented ?3. Cranial nerves II through XII are intact. Normal strength and sensation. Psych: Normal affect. Test Results: EKG sinus tach at [address] changes. Troponin was less than 0.015. Lactic acid is 0.7. Chem-7 shows a chloride of 110, creatinine 0.21, calcium 6.9. This is 7.6 when corrected for albumin of 3.1. LFTs show an AST of 12. INR is 1.3. PTT is 36.1. CBC shows an H&H 10.8 34.4, 7 neutrophils 84, lymphocytes of 9. Clinical Impression(s) from Imaging Studies Chest X-Ray 12/31/19 15:50 IMPRESSION: 1. Bilateral pleural effusions, basilar lung disease, unable to evaluate due to obscuration. 2. Possible cardiomegaly. No pulmonary edema. 3. Diffuse skeletal sclerotic metastatic disease. Electronically Signed: Tenzin Lassiter, at 16:27 EDT Tel , Service support , Emergency Department Course and Treatment: The labs and CT from [facility] [place] were obtained. The CT showed no PE. It did show large bilateral pleural effusions. The right pleural effusion is multiloculated with suggestion of associated pleural thickening anterior in the right hemithorax. Findings raise possibility of metastatic pleural effusions. Associated mass-effect causes partial collapse of the bilateral lungs. It also shows patchy areas of groundglass airspace disease in the right upper lobe and to a lesser stent the left upper lobe. Possibly acute infectious/inflammatory process. Patient was given a dose of Zosyn and vancomycin IV. She was given morphine and Zofran. She is resting comfortably. Treatment Plan: Patient will be discussed with the hospitalist. She will be admitted to the hospital for further evaluation and treatment. She does understand that she will likely not receive thoracentesis until Thursday. Disposition: Admitted in improved condition. Impression: 1. Bilateral pleural effusions. 2. Pneumonia. 3. Hypocalcemia. 4. Breast cancer with metastases. This note was generated with The [employer] software. It may contain incorrect words, spelling, and punctuation that were not noted in review of the chart prior to signing ED Disposition - Plan for ED Patient: Referrals: Golden Goldsmith Chi, MD [Primary Care Provider] -
--- NOTE | 2019-12-31 15:50 | RAD_ITS ---
STUDY: X-RAY CHEST REASON FOR EXAM: Female, 69 years old. SEEN AT [facility] THURSDAY FOR RADIATION, SENT TO ER FOR SOB. STARTED ORAL ATB, NO IMPROVEMENT. METASTATIC BREAST CA TECHNIQUE: Frontal and lateral views of the chest COMPARISON: 19 December 2019 FINDINGS: There are bilateral basilar opacities, likely combination of effusions and possibly underlying lung disease. There is no pneumothorax. Cardiac size cannot be evaluated due to obscuration of cardiac borders. There is right apical opacity. There is diffuse mixed sclerotic osseous metastatic disease. There is a infusion port in the right upper chest with tip terminating in the mid right atrium. RAD/Chest PA and Lateral IMPRESSION: 1. Bilateral pleural effusions, basilar lung disease, unable to evaluate due to obscuration. 2. Possible cardiomegaly. No pulmonary edema. 3. Diffuse skeletal sclerotic metastatic disease. Electronically Signed: Tenzin Lassiter, at 16:27 EDT Tel , Service support ,
--- NOTE | 2019-12-31 15:54 | ED.RN ---
pt refused second set blood cultures. dr bass.
[2019-12-31 16:03] LABS: Absolute Lymphocyte Count 0.79 X10^3/uL (0.83-4.51); Absolute Neutrophil Count 7.1 X10^3/uL (2.0-7.7); Basophil# 0.03 X10^3/uL; Basophil% 0.4 % (0-1); Eosinophil# 0.02 X10^3/uL; Eosinophils% 0.2 % (0-5); Hematocrit 34.4 % (37-47); Hemoglobin 10.8 g/dL (12.0-15.0); Lymphocyte # 0.79 X10^3/ul (4.0); Lymphocyte % 9.4 % (19-41); Mean Corp Hgb Conc 31.4 g/dL (32-36); Mean Corpuscular Volume 108.2 fL (81-99); Mean Platelet Vol. 9.6 fl (6.2-12.0); Monocyte# 0.49 X10^3/uL; Monocyte% 5.8 % (0-10); NRBC Flagged by Analyzer 0 % (0-5); Neutrophil # 7.07 X10^3/uL (2.7-7.7); Neutrophil % 83.8 % (47-70); POSITIVE MORPHOLOGY YES; Platelet Count 214 K/mm3 (150-450); RBC Distribution Width CV 16.8 % (11.6-14.6); RBC Distribution Width SD 67.1 fl (35.1-43.9); Red Blood Count 3.18 M/mm3 (4.2-5.4); White Blood Count 8.4 K/mm3 (4.4-11.0)
--- NOTE | 2019-12-31 16:03 | NURSING ---
FAXED RELEASE OF INFO TO [facility]. FOR LABS AND CT RESULTS FROM 2 DAYS AGO
[2019-12-31 16:06] LABS: ALB/GLOB Ratio 1.3 RATIO (0.9-2.4); AST(SGOT) 12 U/L (15-37); Alanine Aminotransfer ALT/SGPT 14 U/L (13-56); Albumin, Serum 3.1 g/dL (3.2-5.0); Alkaline Phosphatase 91 U/L (45-117); Anion Gap 7 (5-15); BUN 7 mg/dL (7-18); BUN/Creat Ratio 33.7 RATIO (10-20); Calcium,Total 6.9 mg/dL (8.5-10.1); Chloride 110 mmol/L (98-107); Creatinine, Serum 0.21 mg/dL (0.55-1.02); Differential Indicated SCAN CRITERIA MET; EST Glomerular Filtration Rate 359 mL/min (>60); Est Glom Filt Rate - Afr Amer 434 mL/min (>60); Estimated Creatinine Clearance 36.24 ml/min; Globulin 2.4 g/dL (2.2-4.2); Glucose 90 mg/dL (74-106); Potassium 3.6 mmol/L (3.5-5.1); Protein, Total 5.5 g/dL (6.4-8.2); Sodium Level 142 mmol/L (136-145)
[2019-12-31 16:25] LABS: Anisocytosis 1+; Macrocytosis 1+; Red Cell Morphology N CHROM NORMAL (NORM C&C)
[2019-12-31 16:28] LABS: Lactic Acid 0.7 mmol/L (0.4-1.9)
[2019-12-31 16:38] LABS: International Normalized Ratio 1.3
[2019-12-31 16:39] LABS: Partial Thromboplast Time 36.1 Seconds (24.1-36.2)
[2019-12-31] MEDS: Vancomycin IV 1,000 MG/200 ML BAG 200 MG IV (17:19)
--- NOTE | 2019-12-31 18:03 | NURSING ---
MED SURG PLEURAL EFFUSIONS SEMENTI
--- NOTE | 2019-12-31 18:21 | PCM.HP.STD ---
Problem List (1) Hypocalcemia Status: Acute (2) Macrocytic anemia Status: Chronic (3) Hyperparathyroidism Status: Chronic (4) Primary cancer of right female breast Status: Chronic (5) Bone metastases Status: Chronic (6) Pleural effusion, bilateral Status: Chronic (7) Tachycardia Status: Chronic (8) Dyspnea Status: Acute (9) Chest pain Status: Chronic (10) Brain metastases Status: Chronic History of Present Illness Date of Admission: 12/31/19 Chief Complaint: SOB, orthopnea and DELEON The patient is a 69 year old F with a past medical history of breast cancer metastatic to brain and bone, anemia, neuropathy on Lyrica, GERD and a SVT for which she takes carvedilol. she presented to the ED at [facility] on 12/31/19 c/o increasing SOB. She has recurring BL pleural effusions and has had thoracentesis by Dr. Torres on 12/07 and 12/18. She went to [facility] on for focal radiation of the brain mets and could not do the treatment secondary to severe orthopnea. She also complains of dyspnea on exertion. She has chest pain but it is chronic and likely secondary to GERD. She was admitted to the hospital in early December for PNA and was treated with antibiotics. The purulent sputum has resolved and now she has her normal cough. She has not had fevers or chills. Vital signs at presentation to the emergency department were temperature 97 ?F, pulse rate 122, blood pressure 109/81 and the pulse ox was 97% on 3 L with a respiratory rate of 24. Chest x-ray revealed bilateral basilar opacities and it is difficult to tell if this is due to pleural effusion, compression of the lung secondary to pleural effusions, infiltrates or chronic lung disease. White blood cell count was 8.4 with 84% neutrophils. Hemoglobin was 10.8 which is up from 9.1 earlier in the month. MCV is 108.2. Recent B12, folate and iron studies were unremarkable. Platelets are within normal limits. BMP shows a potassium of 3.6, BUN of 7 with a creatinine of 0.21, lactic acid of 0.7, calcium of 6.9 which corrects to 7.6 when allowing for hypoalbuminemia. Phosphorus is low at 1.9 and the magnesium is 1.8. A recent vitamin D level was within normal limits. The last thoracentesis was negative for malignant cells. She is being admitted to the hospital for recurrent BL pleural effusions with acute respiratory insufficiency/hypoxia. Past Medical History Past Medical History (Chronic Problems): Chronic Problems (Last Updated 12/26/19 @ 12:[address] Lisa Carrera MD) Macrocytic anemia (Chronic) Hyperparathyroidism (Chronic) Primary cancer of right female breast (Chronic) Bone metastases (Chronic) Pleural effusion, bilateral (Chronic) Tachycardia (Chronic) Chest pain (Chronic) Brain metastases (Chronic) Medical History: Medical History (Last Reviewed 12/31/19 @ 21:[address] Pauly Sheppard DO) Brain metastases (Chronic) C79.31 Breast cancer C79.51 Cancer, metastatic to bone M84.461A Heartburn symptom R12 Imbalance M84.463A Neuropathy G62.9 Postmenopausal bleeding N95.0 Swelling of right foot M79.89 Encounter for adjustment and management of vascular access device Z45.2 History of tamoxifen therapy S82.201A, S82.401A Right tibial fracture S82.201A Chemotherapy management, encounter for (Inactive) Z51.11 Allergies No Known Allergies Allergy (Verified 12/31/19 14:26) Home Medications: Ambulatory Orders Medication Instructions Recorded traMADol [Ultram] 50 mg PO QHS 04/19/19 Cholecalciferol (VIT D3) [Vitamin 1,000 unit PO DAILY 06/23/19 D3] carvedilol 3.125 mg tablet 3.125 mg PO BID #60 tab 12/15/19 Ensure Clear 120 ml PO TIDCM 30 Days #120 liquid 12/20/19 Dexamethasone [Decadron] 4 mg PO DAILY 12/31/19 Doxycycline 100 mg PO BID 12/31/19 Surgical History: Surgical History (Last Reviewed 12/31/19 @ 21:[address] Pauly Sheppard DO) History of open reduction and internal fixation (ORIF) procedure Onset Date: 09/2017 Z98.890 HUY PLACEMENT IN FEMOR History of right mastectomy Z90.11 History of thoracentesis Onset Date: 12/08/19 Z98.890 left SURGERY RIGHT TIBIAL Onset Date: 2018 2018 Psychiatric History: No pertinent psych hx [employer] History: No pertinent [employer] history Lives: Alone Smoking Status: Never smoker Tobacco Use: Non-smoker Alcohol: None Drugs: None - *Family History Maternal Family History: Family History (Last Reviewed 12/31/19 @ 21:[address] Pauly Sheppard DO) Mother Colon cancer Father Heart disease Review of Systems Constitutional: Reports: Weakness. Denies: Anorexia, Chills, Fever, Weight Change HEENT: Denies: Difficulty Swallowing, Head Aches, Sinus Congestion, Sinus Drainage, Sore Throat Cardiovascular: Reports: Chest Pain - chronic, Orthopnea, Paroxysmal Noc. Dyspnea, - - sleeps on 3 pillows at home. Denies: Edema, Heaviness, Light Headedness, Palpitations Respiratory: Reports: Shortness of Breath, Shortness of breath upon exertion. Denies: Cough, Hemoptysis, Pleuritic Pain, Shortness of breath at rest, Sputum production, Wheezing Gastrointestinal: Reports: Abdominal Pain - some in the epigastric area. Denies: Constipation, Diarrhea, Nausea, Vomiting Genitourinary: Denies: Dysuria Musculoskeletal: Reports: - - bone pain in many different places due to metastatic disease. Denies: Joint Pain, Joint swelling, Joint Tenderness Skin: Denies: Jaundice, Rash, Wounds Neurological: Denies: Change in Speech, Slurred speech, Confusion, Focal weakness, Headaches, Numbness, Tingling, Tremor, Seizures Psychiatric: Denies: Anxiety, Depression, Homicidal Ideations, Suicidal Ideations Endocrine: Reports: Change in Body Habitus - has lost a lot of weight, Heat/ Cold Intolerance - cold intolerance Hematologic/ Lymphatic: Denies: Easy Bruising, Easy Bleeding VTE Information - Inpt Only VTE Present on Admission: No VTE Mechan Device Prophylaxis: Knee High KVNG Hose VTE Pharm Prophylaxis ordered?: Yes Patient Problems: Active and Suspected Problems (Last Updated 12/26/19 @ 12:[address] Lisa Carrera MD) Hypocalcemia (Acute) - Physical Exam Vitals/I&O's: Vital Signs Temp Pulse Resp BP Pulse Ox 97.7 F L 112 H 20 H 102/78 97 12/31/19 18:14 12/31/19 18:14 12/31/19 18:14 12/31/19 18:14 12/31/19 18:14 Oxygen Flow Rate (L/min) 2 Oxygen Delivery Method Nasal Cannula Weight: 94 lb Body Mass Index (BMI) 15.6 Intake and Output for Last 24 Hours 12/29/19 12/30/19 12/31/19 23:59 23:59 23:59 Intake Total 100 / 100 Balance 100 / 100 General: Alert, Oriented x3, Cooperative, - HEENT: Atraumatic, PERRLA, EOMI, Normocephalic Oral: Dry Mucosa Neck: Supple, No JVD, No Nodes, No Nuchal Rigidity, Trachea Midline Lungs: Rales - She has coarse rales posteriorly on the right.....air exchange on the R is fair , including the base. There are no wheezes. There are very diminished BS in the left base and coarse crackles about mid lung on the left posteriorly. 'No conversational dyspnea at rest. Could not get the radiation to the brain at [facility] because she was unable to lie flat. She is not tachypneic at rest Cardiovascular: Regular rate - she goes into SVT at times with rates in the 140's and they terminate on their own, Regular Rhythm, Normal S1, Normal S2, No murmurs, No rub noted, No Gallop Abdomen: Bowel Sounds Present, Soft, Non Tender, Non-Distended, - - no guarding with palpation Extremities: No clubbing, No edema, Capillary Refill Less than 3 Seconds, No Calf Tenderness, Cyanosis - of the nail beds of the hands Skin: No rashes, No breakdown Musculoskeletal: No Tenderness to Palpation of Joints or Extremities, Cachexia, Muscle Wasting Neurological: Cranial nerves II-XII grossly intact, Neuro grossly intact Psych/Mental Status: Normal Affect, Appropriate Laboratory Results 12/31/19 15:00: Sodium 142, Potassium 3.6, Chloride 110 H, Carbon Dioxide 25.0, Anion Gap 7, BUN 7, Creatinine 0.21 L, Estim Creat Clear Calc 36.24, Est GFR (MDRD) Af Amer 434, Est GFR (MDRD) Non-Af 359, BUN/Creatinine Ratio 33.7 H, Glucose 90, Calcium 6.9 L, Total Bilirubin 0.80, AST 12 L, ALT 14, Alkaline Phosphatase 91, Troponin I < 0.015, Total Protein 5.5 L, Albumin 3.1 L, Globulin 2.4, Albumin/Globulin Ratio 1.3 12/31/19 15:00: WBC 8.4, RBC 3.18 L, Hgb 10.8 L, Hct 34.4 L, MCV 108.2 H, MCH 34.0 H, MCHC 31.4 L, RDW Std Deviation 67.1 H, RDW Coeff of Rajni 16.8 H, Plt Count 214, MPV 9.6, Immature Gran % (Auto) 0.400, Neut % (Auto) 83.8 H, Lymph % (Auto) 9.4 L, [place] % (Auto) 5.8, Eos % (Auto) 0.2, Baso % (Auto) 0.4, Absolute Neuts (auto) 7.1, Absolute Lymphs (auto) 0.79 L, Nucleated RBC % 0, RBC Morphology N CHROM, Anisocytosis 1+, Macrocytosis 1+ 12/31/19 15:00: PT 16.0 H, INR 1.3, APTT 36.1 12/31/19 15:30: Lactic Acid 0.7 12/31/19 18:02: COVID-19 (GUILLERMO) Pending Assessment/Plan All Active Problems (Last Updated 12/26/19 @ 12:[address] Lisa Carrera MD) Hypocalcemia (Acute) Dyspnea (Acute) Cyanotic fingertip (Resolved) Encounter for education (Resolved) Encounter for insertion of venous access port (Resolved) Pneumonia (Resolved) Impressions 1. Recurrent BL pleural effusions in patient who has had [address] Torres. Discussed with Dr. Benítez. Will put her on the surgery schedule for Thursday for BL pleurx catheters. Place on fluid restriction for now. Her mucous membranes are very dry and the HGB is increased and I suspect she is IV volume depleted. No Lasix at this time. I think the effusion on the right is not that large since she has fair breath sounds in the bases. Will get a CT chest in the AM to better evaluate the size of the erffusions and whether or not she will need BL catheters. 2. breast CA metastatic to bone and brain. She is followed by Dr. Carrera. 3. Hypocalcemia -1 g of IV calcium gluconate and start calcium carbonate 500 mg p.o. twice daily. Continue vitamin D supplement. Recheck the calcium in 1 to 2 days. 4. Markedly elevated PTH 5. SVT-she is on carvedilol to control this 6. Macrocytic anemia-stable 7. GERD -famotidine was ordered twice daily 8. Neuropathy-on Lyrica 50 mg at bedtime. 9. Hypophosphatemia Consult Dr. Benítez for Pleurx catheters so that the patient may drain the effusions at home and be more comfortable. Lovenox 40 mg subcu daily for DVT prophylaxis Fluid restriction-1200 cc daily Supplement the potassium to get it to be around 4 Supplement the phosphorus with potassium phosphate and recheck phosphorus in the a.m. CODE STATUS: Discussed code status at length with the patient and her daughter Melody including the difference between FULL CODE, DNR CCA and DNR CC status. All questions were answered. An order for DNR CCA with intubation was entered into the computer. A total of 20 minutes face to face time was devoted to advanced care planning. Inpatient E&M: 88981 Init Hosp L2
--- NOTE | 2019-12-31 18:22 | NURSING ---
DR [facility]
[2019-12-31 19:11] LABS: Magnesium 1.8 mg/dL (1.6-2.6); Phosphorus 1.9 mg/dL (2.5-4.9)
[2019-12-31] MEDS: Pregabalin 50 MG Capsule PO (21:03)
[2019-12-31] MEDS: Famotidine 20 MG Tablet PO (21:04)
[2019-12-31] MEDS: traMADol 50 MG Tablet PO (21:04)
[2019-12-31] MEDS: Carvedilol 3.125 MG TABLET PO (21:05)
[2020-01-01] VITALS (16 sets, daily range): BP systolic 92–107; BP diastolic 62–72; PULSE 93–119; RESP 16–28; TEMP 36.6–36.9; O2SAT 94–96; BMI 15.7
--- NOTE | 2020-01-01 05:55 | CT_ITS ---
STUDY: CT CHEST WITHOUT CONTRAST REASON FOR EXAM: Female, 69 years old patient with hypoxia and pleural effusions. Patient has metastatic breast cancer. RADIATION DOSAGE (If Supplied By Facility): CTDIvol = ( 6.04 ) mGy, DLP = ( 246.49 ) mGycm TECHNIQUE: Transaxial imaging was performed without the administration of intravenous contrast material. Multiplanar coronal and sagittal images were reformatted. Individualized dose optimization techniques were used for this CT. COMPARISON: CT of the chest dated December 17, 2019. FINDINGS: The lungs are hyperexpanded. There are bilateral pleural effusions. There appears to be patchy groundglass attenuation in the right upper lobe and right middle lobe. There is bilateral lower lobe compressive atelectasis and possible airspace consolidation with air bronchograms. There appears to be some apical pleural thickening. Normal heart and pericardium. There are calcifications of the coronary arteries. Normal mediastinum. The hilar areas are obscured in part bilaterally bilateral basal airspace consolidations and pleural effusions. There is prominence of the pulmonary hilar arteries without peripheral pulmonary vascular congestion. There is atherosclerotic calcification of the aortic arch with tortuosity and elongation of the aortic arch and descending thoracic aorta. Maximum transverse dimension of the ascending thoracic aorta measures approximately 3.2 cm. There is diffusely abnormal attenuation involving all the imaged cervical, thoracic and lumbar vertebral bodies consistent with diffuse metastatic disease. There is decreased height of several of the thoracic vertebral bodies consistent with pathologic fractures. There appears to be a fracture of the sternum probably pathologic and is new since the previous CT. There are numerous metastases within the sternum and imaged ribs. There appear to be pathologic rib fractures.. There is no demonstrated abnormality of the visualized upper abdomen. CT/Chest without Contrast IMPRESSION: 1. Large bilateral pleural effusions with compressive atelectasis and/or airspace consolidation in the lower lobes, and right middle lobe. 2. There is a bilateral upper lobe airspace disease and atelectasis. 3. Diffuse skeletal metastasis with pathologic fractures of the vertebral bodies, sternum and ribs. Electronically Signed: Joanna Montana MD at 6:56 EDT , Service support ,
[2020-01-01 07:10] LABS: Absolute Lymphocyte Count 0.69 X10^3/uL (0.83-4.51); Absolute Neutrophil Count 7.9 X10^3/uL (2.0-7.7); Basophil# 0.03 X10^3/uL; Basophil% 0.3 % (0-1); Eosinophil# 0.08 X10^3/uL; Eosinophils% 0.9 % (0-5); Hematocrit 30.5 % (37-47); Hemoglobin 9.2 g/dL (12.0-15.0); Lymphocyte # 0.69 X10^3/ul (4.0); Lymphocyte % 7.4 % (19-41); Mean Corp Hgb Conc 30.2 g/dL (32-36); Mean Corpuscular Hgb 33.8 pg (27.0-32.0); Mean Corpuscular Volume 112.1 fL (81-99); Mean Platelet Vol. 9.5 fl (6.2-12.0); Monocyte# 0.57 X10^3/uL; Monocyte% 6.1 % (0-10); NRBC Flagged by Analyzer 0 % (0-5); Neutrophil % 84.9 % (47-70); POSITIVE MORPHOLOGY YES; Platelet Count 171 K/mm3 (150-450); RBC Distribution Width CV 17.3 % (11.6-14.6); RBC Distribution Width SD 71.3 fl (35.1-43.9); Red Blood Count 2.72 M/mm3 (4.2-5.4); White Blood Count 9.3 K/mm3 (4.4-11.0)
[2020-01-01 07:21] LABS: Differential Indicated SCAN CRITERIA MET
[2020-01-01 07:29] LABS: Anion Gap 4 (5-15); BUN 7 mg/dL (7-18); BUN/Creat Ratio 30.4 RATIO (10-20); Calcium,Total 6.7 mg/dL (8.5-10.1); Chloride 112 mmol/L (98-107); Creatinine, Serum 0.23 mg/dL (0.55-1.02); EST Glomerular Filtration Rate 319 mL/min (>60); Est Glom Filt Rate - Afr Amer 386 mL/min (>60); Estimated Creatinine Clearance 36.55 ml/min; Glucose 86 mg/dL (74-106); Magnesium 1.7 mg/dL (1.6-2.6); Potassium 4.1 mmol/L (3.5-5.1); Sodium Level 143 mmol/L (136-145)
[2020-01-01 07:47] LABS: Anisocytosis 1+; Hypochromasia 1+; Macrocytosis 2+; Ovalocyte 1+; Platelet Estimate ADEQUATE (ADEQ)
--- NOTE | 2020-01-01 08:11 | PCM.CONS.GEN ---
Problem List (1) Bone metastases Status: Chronic (2) Pleural effusion, bilateral Status: Chronic Reason for Consult Date of Consultation: 01/01/20 History of Present Illness: The patient is a 69 year old F presents with shortness of breath. She has a history of metastatic breast cancer with recurrent effusions. Past Medical History Past Medical History (Chronic Problems): Chronic Problems (Last Reviewed 12/31/19 @ 21:[address] Pauly Sheppard DO) Macrocytic anemia (Chronic) Hyperparathyroidism (Chronic) Primary cancer of right female breast (Chronic) Bone metastases (Chronic) Pleural effusion, bilateral (Chronic) Tachycardia (Chronic) Chest pain (Chronic) Brain metastases (Chronic) Medical History: Medical History (Last Reviewed 12/31/19 @ 21:[address] Pauly Sheppard DO) Brain metastases (Chronic) C79.31 Breast cancer C79.51 Cancer, metastatic to bone M84.461A Heartburn symptom R12 Imbalance M84.463A Neuropathy G62.9 Postmenopausal bleeding N95.0 Swelling of right foot M79.89 Encounter for adjustment and management of vascular access device Z45.2 History of tamoxifen therapy S82.201A, S82.401A Right tibial fracture S82.201A Chemotherapy management, encounter for (Inactive) Z51.11 Allergies No Known Allergies Allergy (Verified 12/31/19 14:26) Home Medications: Ambulatory Orders Medication Instructions Recorded traMADol [Ultram] 50 mg PO QHS 04/19/19 Cholecalciferol (VIT D3) [Vitamin 1,000 unit PO DAILY 06/23/19 D3] carvedilol 3.125 mg tablet 3.125 mg PO BID #60 tab 12/15/19 Ensure Clear 120 ml PO TIDCM 30 Days #120 liquid 12/20/19 Dexamethasone [Decadron] 4 mg PO DAILY 12/31/19 Doxycycline 100 mg PO BID 12/31/19 Surgical History: Surgical History (Last Reviewed 12/31/19 @ 21:[address] 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 Pauly Sheppard DO) Mother Colon cancer Father Heart disease Review of Systems Constitutional: Denies: Anorexia, Fever Eyes: Denies: Blurred vision HEENT: Denies: Difficulty Swallowing Cardiovascular: Denies: Chest Pain Respiratory: Reports: Shortness of Breath, Shortness of breath at rest Gastrointestinal: Denies: Abdominal Pain Genitourinary: Denies: Dysuria Skin: Denies: Dryness Patient Problems: Active and Suspected Problems (Last Reviewed 12/31/19 @ 21:[address] Pauly Sheppard DO) Hypocalcemia (Acute) - Physical Exam Vitals/I&O's: Vital Signs Temp Pulse Resp BP Pulse Ox 98.4 F 105 H 20 H 107/70 96 01/01/20 08:09 01/01/20 08:09 01/01/20 08:09 01/01/20 08:09 01/01/20 08:09 Oxygen Flow Rate (L/min) 3 Oxygen Delivery Method Nasal Cannula Weight: 94 lb 12.78 oz Body Mass Index (BMI) 15.7 Intake and Output for Last 24 Hours 12/30/19 12/31/19 01/01/20 23:59 23:59 23:59 Intake Total 1420 / 1660 620 / 620 Balance 1420 / 1660 620 / 620 General: Alert, Oriented x3 Neck: No JVD Lungs: Diminished Cardiovascular: Regular rate, Regular Rhythm Abdomen: Soft, Non Tender, Non-Distended Musculoskeletal: No Muscle Wasting Neurological: Cranial nerves II-XII grossly intact Psych/Mental Status: Normal Affect Laboratory Results 12/31/19 15:00: Sodium 142, Potassium 3.6, Chloride 110 H, Carbon Dioxide 25.0, Anion Gap 7, BUN 7, Creatinine 0.21 L, Estim Creat Clear Calc 36.24, Est GFR (MDRD) Af Amer 434, Est GFR (MDRD) Non-Af 359, BUN/Creatinine Ratio 33.7 H, Glucose 90, Calcium 6.9 L, Total Bilirubin 0.80, AST 12 L, ALT 14, Alkaline Phosphatase 91, Troponin I < 0.015, Total Protein 5.5 L, Albumin 3.1 L, Globulin 2.4, Albumin/Globulin Ratio 1.3 12/31/19 15:00: WBC 8.4, RBC 3.18 L, Hgb 10.8 L, Hct 34.4 L, MCV 108.2 H, MCH 34.0 H, MCHC 31.4 L, RDW Std Deviation 67.1 H, RDW Coeff of Rajni 16.8 H, Plt Count 214, MPV 9.6, Immature Gran % (Auto) 0.400, Neut % (Auto) 83.8 H, Lymph % (Auto) 9.4 L, Sebastian % (Auto) 5.8, Eos % (Auto) 0.2, Baso % (Auto) 0.4, Absolute Neuts (auto) 7.1, Absolute Lymphs (auto) 0.79 L, Nucleated RBC % 0, RBC Morphology N CHROM, Anisocytosis 1+, Macrocytosis 1+ 12/31/19 15:00: PT 16.0 H, INR 1.3, APTT 36.1 12/31/19 15:00: Phosphorus 1.9 L, Magnesium 1.8 12/31/19 15:30: Lactic Acid 0.7 12/31/19 18:02: COVID-19 (GUILLERMO) Not Detected 01/01/20 06:54: WBC 9.3, RBC 2.72 L, Hgb 9.2 L, Hct 30.5 L, MCV 112.1 H, MCH 33.8 H, MCHC 30.2 L, RDW Std Deviation 71.3 H, RDW Coeff of Rajni 17.3 H, Plt Count 171, MPV 9.5, Immature Gran % (Auto) 0.400, Neut % (Auto) 84.9 H, Lymph % (Auto) 7.4 L, Sebastian % (Auto) 6.1, Eos % (Auto) 0.9, Baso % (Auto) 0.3, Absolute Neuts (auto) 7.9 H, Absolute Lymphs (auto) 0.69 L, Nucleated RBC % 0, Platelet Estimate ADEQUATE, Hypochromasia 1+, Anisocytosis 1+, Macrocytosis 2+, Ovalocytes 1+ 01/01/20 06:54: Sodium 143, Potassium 4.1, Chloride 112 H, Carbon Dioxide 27.0, Anion Gap 4 L, BUN 7, Creatinine 0.23 L, Estim Creat Clear Calc 36.55, Est GFR (MDRD) Af Amer 386, Est GFR (MDRD) Non-Af 319, BUN/Creatinine Ratio 30.4 H, Glucose 86, Calcium 6.7 L, Magnesium 1.7 01/01/20 06:54: Phosphorus 3.0 Clinical Impression(s) from Imaging Studies Chest X-Ray 12/31/19 15:50 IMPRESSION: 1. Bilateral pleural effusions, basilar lung disease, unable to evaluate due to obscuration. 2. Possible cardiomegaly. No pulmonary edema. 3. Diffuse skeletal sclerotic metastatic disease. Electronically Signed: Tenzin Lassiter at 16:27 EDT Tel , Service support , Chest CT 01/01/20 05:55 IMPRESSION: 1. Large bilateral pleural effusions with compressive atelectasis and/or airspace consolidation in the lower lobes, and right middle lobe. 2. There is a bilateral upper lobe airspace disease and atelectasis. 3. Diffuse skeletal metastasis with pathologic fractures of the vertebral bodies, sternum and ribs. Electronically Signed: Joanna Montana MD at 6:56 EDT , Service support , Current Medications Acetaminophen (Tylenol) 650 mg PO Q6H PRN PRN PRN Reason: Pain Score 1-10/Temp > 100.7 F Al Hydroxide/Mg Hydroxide (Mylanta Ii) 30 ml PO Q6H PRN PRN PRN Reason: Gastric Burning Albuterol Sulfate (Ventolin Aerosols) 2.5 mg INHALATION Q2H PRN PRN PRN Reason: SOB/Wheezing Bisacodyl (Dulcolax) 5 mg PO DAILY PRN PRN PRN Reason: Constipation [facility]cium [facility] ([facility]) [facility] Carvedilol (Coreg) 3.125 mg PO BID [facility] Last Admin: 12/31/19 21:05 Dose: 3.125 mg Documented by: Cholecalciferol (Vitamin D (25mcg)) 1,000 unit PO DAILY [facility] Dexamethasone (Decadron) 4 mg PO DAILYCM [facility] Enoxaparin Sodium (Lovenox) 40 mg SC DAILY [facility] Famotidine (Pepcid) 20 mg PO BID [facility] Last Admin: 12/31/19 21:04 Dose: 20 mg Documented by: Guaifenesin (Robitussin) 20 ml PO Q4H PRN PRN PRN Reason: COUGH Magnesium Hydroxide (Milk Of Magnesia) 30 ml PO DAILY PRN PRN PRN Reason: Constipation Morphine Sulfate () 2 - 4 mg IV Q3H PRN PRN PRN Reason: Pain Score 6-10/10 Nutritional Formula (Lactose Free) (Ensure Clear) 120 ml PO TIDCM [facility] Ondansetron HCl (Zofran) 4 mg IV Q8H PRN PRN PRN Reason: NAUSEA/VOMITING Oxycodone HCl (Oxyir) 5 mg PO Q4H PRN PRN PRN Reason: Pain Score 4-5/10 Pregabalin (Lyrica) 50 mg PO QHS [facility] Last Admin: 12/31/19 21:03 Dose: 50 mg Documented by: Prochlorperazine Edisylate (Compazine Iv) 5 mg IV Q4H PRN PRN PRN Reason: Breakthrough Nausea/Vomiting Senna/Docusate Sodium (Senokot-S, Andreina-Colace) 2 tablet PO BID PRN PRN PRN Reason: Constipation Tramadol HCl (Ultram) 50 mg PO QHS [facility] Last Admin: 12/31/19 21:04 Dose: 50 mg Documented by: Assessment/Plan All Active Problems (Last Reviewed 12/31/19 @ 21:[address] Pauly Sheppard, DO) Hypocalcemia (Acute) Dyspnea (Acute) Cyanotic fingertip (Resolved) Encounter for education (Resolved) Encounter for insertion of venous access port (Resolved) Pneumonia (Resolved) 69-year-old female with metastatic breast cancer 1. Patient has metastatic breast cancer with bilateral pleural effusions. CT scan was obtained yesterday. I was consulted for Pleurx catheters. The patient has required recurrent thoracentesis. 2. I discussed Pleurx catheter placement bilaterally with the patient in detail. I discussed the risks including but not limited to bleeding, infection, injury to the lung. The patient would like to proceed with catheter placement. Plan for insertion tomorrow. N.p.o. after midnight. Timo Benítez MD Pager: [facility] [address] [place] [address] [address] [place] [address] Office:
[2020-01-01] MEDS: Calcium Carbonate 500 MG Tablet PO ×2 (08:18→16:37)
[2020-01-01] MEDS: Famotidine 20 MG Tablet PO ×2 (08:19→20:46)
[2020-01-01] MEDS: Carvedilol 3.125 MG TABLET PO ×2 (08:19→20:47)
[2020-01-01] MEDS: dexAMETHasone 4 MG Tablet PO (08:19)
[2020-01-01] MEDS: Enoxaparin 40 MG/0.4 ML Syringe SC (08:21)
[2020-01-01] MEDS: Albuterol 2.5 MG/3 ML VIAL.NEB. INHALATION (09:23)
[2020-01-01] MEDS: 0.9% Saline Lock 10 ML Syringe IV (11:15)
[2020-01-01] MEDS: Ensure Clear 120 ML Liquid PO ×2 (11:17→16:40)
--- NOTE | 2020-01-01 12:40 | NT.THERAPY_ITS ---
Nutrition Therapy Report - History Nutrition Services has been consulted to:: Manage nutrient details of diet order Current diet / nutrition support order:: Regular diet; 1200 ml fluid restriction - Anthropometric Measurements Height:: 5 ft 5 in Weight:: 43 kg Body Mass Index (BMI):: 15.7 - Relevant Labs Relevant Labs:: RBC 2.72 M/mm3 (4.2-5.4) L 01/01/20 06:54 Hgb 9.2 g/dL (12.0-15.0) L 01/01/20 06:54 Hct 30.5 % (37-47) L 01/01/20 06:54 MCV 112.1 fL (81-99) H 01/01/20 06:54 MCH 33.8 pg (27.0-32.0) H 01/01/20 06:54 MCHC 30.2 g/dL (32-36) L 01/01/20 06:54 RDW Std Deviation 71.3 fl (35.1-43.9) H 01/01/20 06:54 RDW Coeff of Rajni 17.3 % (11.6-14.6) H 01/01/20 06:54 Neut % (Auto) 84.9 % (47-70) H 01/01/20 06:54 Lymph % (Auto) 7.4 % (19-41) L 01/01/20 06:54 Absolute Neuts (auto) 7.9 X10^3/uL (2.0-7.7) H 01/01/20 06:54 Absolute Lymphs (auto) 0.69 X10^3/uL (0.83-4.51) L 01/01/20 06:54 PT 16.0 SECONDS (11.7-14.9) H 12/31/19 15:00 Chloride 112 mmol/L (98-107) H 01/01/20 06:54 Anion Gap 4 (5-15) L 01/01/20 06:54 Creatinine 0.23 mg/dL (0.55-1.02) L 01/01/20 06:54 BUN/Creatinine Ratio 30.4 RATIO (10-20) H 01/01/20 06:54 Calcium 6.7 mg/dL (8.5-10.1) L 01/01/20 06:54 Phosphorus 1.9 mg/dL (2.5-4.9) L 12/31/19 15:00 AST 12 U/L (15-37) L 12/31/19 15:00 Total Protein 5.5 g/dL (6.4-8.2) L 12/31/19 15:00 Albumin 3.1 g/dL (3.2-5.0) L 12/31/19 15:00 - Assessment Food / Nutrition-Related History:: 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 Took~50-75% of breakfast; agreeable to ensure clear with medpass & meals in addition to connie ensure pudding as tolerated. Pt reports UBW before ca dx~140 pounds but, in the more recent past ~10 lb wt loss (~9-10%) x past 3-4 weeks; pt is requiring recurrent thoracentesis so, some of the wt could be fluid in addition to decreased overall intake when not feeling well. Pt denies difficulty chewing/swallowing. Pt does have fat & muscle wasting +NFPA. Pt meets criteria for severe pro/miriam malnutrition given wt loss, suboptimal oral intake & physical signs of muscle/fat wasting. 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 Evidence of Malnutrition Exists:: Yes Severe PCM:: Chronic Illness - Nutrition Intervention Nutrition Prescription:: [id number] kcal estimated caloric intake/day. 55-65 gm pro estimated per day - Food / Nutrient Delivery Interventions Summary of nutrition intervention:: Pt agreeable to apple ensure clear with meals & medpass in addition to connie ensure pudding BID with lunch & dinner. G iven 1200 ml FR, it is difficult to offer adequate Oral nutrition supplements that pt is able to tolerate since she does not tolerate dairy/diarrhea in magic cup. May need to consider TF support to prevent further energy/pro depletion. Nutrition support ordered as / adjusted to:: No nutrition support ordered at this time; consider TF as indicated. Nutrition education provided?: Yes - MNT Monitoring Further MNT monitoring and evaluation required?: Yes MNT Follow-up in:: 3-5 days
--- NOTE | 2020-01-01 15:42 | PN_ITS ---
Patient Problems: Active and Suspected Problems (Last Reviewed 12/31/19 @ 21:[address] Pauly Sheppard, DO) Hypocalcemia (Acute) Subjective: Patient was seen and examined today, she still having some shortness of breath on exertion, she is currently on nasal cannula oxygen. Patient is scheduled to have Pleurx catheters inserted tomorrow bilaterally. She states that her physicians are not sure of the etiology of her pleural effusions, she states she has metastatic breast cancer to the brain and is due to have radiation again to her brain for metastases. - Physical Exam Vitals/I&O's: Vital Signs Temp Pulse Resp BP Pulse Ox 97.8 F 108 H 18 101/72 96 01/01/20 14:09 01/01/20 14:59 01/01/20 14:09 01/01/20 14:09 01/01/20 14:09 Oxygen Flow Rate (L/min) 3 Oxygen Delivery Method Nasal Cannula Weight: 43 kg Body Mass Index (BMI) 15.7 Intake and Output for Last 24 Hours 12/30/19 12/31/19 01/01/20 23:59 23:59 23:59 Intake Total 1420 / 1660 940 / 940 Balance 1420 / 1660 940 / 940 General: Alert, Oriented x3, Cooperative, No apparent distress, Well developed HEENT: Atraumatic, PERRLA, EOMI, Normocephalic Oral: Moist Mucosa Neck: Supple, No JVD, Trachea Midline, Thyroid Normal Size and Texture Lungs: No rhonchi, No wheeze, No rales, Diminished - Diminished breath sounds bilaterally over the lower lungs Cardiovascular: Regular rate, Regular Rhythm, Normal S1, Normal S2, No murmurs, PMI Normal, No rub noted, No Gallop Abdomen: Bowel Sounds Present, Soft, Non Tender, Non-Distended Extremities: No edema, Capillary Refill Less than 3 Seconds Skin: No rashes, No breakdown Musculoskeletal: No Tenderness to Palpation of Joints or Extremities, Cachexia, Muscle Wasting Neurological: Cranial nerves II-XII grossly intact, Neuro grossly intact, Sen brandy exam intact to light touch and pain Psych/Mental Status: Normal Affect, Appropriate, Alert and oriented to time, place, person, mood and affect Laboratory Results 12/31/19 15:00: Sodium 142, Potassium 3.6, Chloride 110 H, Carbon Dioxide 25.0, Anion Gap 7, BUN 7, Creatinine 0.21 L, Estim Creat Clear Calc 36.24, Est GFR (MDRD) Af Amer 434, Est GFR (MDRD) Non-Af 359, BUN/Creatinine Ratio 33.7 H, Glucose 90, Calcium 6.9 L, Total Bilirubin 0.80, AST 12 L, ALT 14, Alkaline Phosphatase 91, Troponin I < 0.015, Total Protein 5.5 L, Albumin 3.1 L, Globulin 2.4, Albumin/Globulin Ratio 1.3 12/31/19 15:00: WBC 8.4, RBC 3.18 L, Hgb 10.8 L, Hct 34.4 L, MCV 108.2 H, MCH 34.0 H, MCHC 31.4 L, RDW Std Deviation 67.1 H, RDW Coeff of Rajni 16.8 H, Plt Coun t 214, MPV 9.6, Immature Gran % (Auto) 0.400, Neut % (Auto) 83.8 H, Lymph % (Auto) 9.4 L, Ulster % (Auto) 5.8, Eos % (Auto) 0.2, Baso % (Auto) 0.4, Absolute Neuts (auto) 7.1, Absolute Lymphs (auto) 0.79 L, Nucleated RBC % 0, RBC Morphology N CHROM, Anisocytosis 1+, Macrocytosis 1+ 12/31/19 15:00: PT 16.0 H, INR 1.3, APTT 36.1 12/31/19 15:00: Phosphorus 1.9 L, Magnesium 1.8 12/31/19 15:30: Lactic Acid 0.7 12/31/19 18:02: COVID-19 (GUILLERMO) Not Detected 01/01/20 06:54: WBC 9.3, RBC 2.72 L, Hgb 9.2 L, Hct 30.5 L, MCV 112.1 H, MCH 33.8 H, MCHC 30.2 L, RDW Std Deviation 71.3 H, RDW Coeff of Rajni 17.3 H, Plt Count 171, MPV 9.5, Immature Gran % (Auto) 0.400, Neut % (Auto) 84.9 H, Lymph % (Auto) 7.4 L, Ulster % (Auto) 6.1, Eos % (Auto) 0.9, Baso % (Auto) 0.3, Absolute Neuts (auto) 7.9 H, Absolute Lymphs (auto) 0.69 L, Nucleated RBC % 0, Platelet Estimate ADEQUATE, Hypochromasia 1+, Anisocytosis 1+, Macrocytosis 2+, Ovalocytes 1+ 01/01/20 06:54: Sodium 143, Potassium 4.1, Chloride 112 H, Carbon Dioxide 27.0, Anion Gap 4 L, BUN 7, Creatinine 0.23 L, Estim Creat Clear Calc 36.55, Est GFR (MDRD) Af Amer 386, Est GFR (MDRD) Non-Af 319, BUN/Creatinine Ratio 30.4 H, Glucose 86, Calcium 6.7 L, Magnesium 1.7 01/01/20 06:54: Phosphorus 3.0 Current Medications Acetaminophen (Tylenol) 650 mg PO Q6H PRN PRN PRN Reason: Pain Score 1-10/Temp > 100.7 F Al Hydroxide/Mg Hydroxide (Mylanta Ii) 30 ml PO Q6H PRN PRN PRN Reason: Gastric Burning Albuterol Sulfate (Ventolin Aerosols) 2.5 mg INHALATION Q2H PRN PRN PRN Reason: SOB/Wheezing Last Admin: 01/01/20 09:23 Dose: 2.5 mg Documented by: Bisacodyl (Dulcolax) 5 mg PO DAILY PRN PRN PRN Reason: Constipation [facility] Last Admin: 01/01/20 08:18 Dose: 500 mg Documented by: Carvedilol (Coreg) 3.125 mg PO BID [facility] Last Admin: 01/01/20 08:19 Dose: 3.125 mg Documented by: Cholecalciferol (Vitamin D (25mcg)) 1,000 unit PO DAILY [facility] Last Admin: 01/01/20 08:19 Dose: 1,000 unit Documented by: Dexamethasone (Decadron) [facility] Last Admin: 01/01/20 08:19 Dose: 4 mg Documented by: Enoxaparin Sodium (Lovenox) 40 mg SC DAILY [facility] Last Admin: 01/01/20 08:21 Dose: 40 mg Documented by: Famotidine (Pepcid) 20 mg PO BID [facility] Last Admin: 01/01/20 08:19 Dose: 20 mg Documented by: Guaifenesin (Robitussin) 20 ml PO Q4H PRN PRN PRN Reason: COUGH Heparin Sodium (Beef Lung) () 50 units IV UD PRN PRN Reason: Port-a-Cath (VAD)Heparin Flush Sodium Chloride () 250 mls @ 15 mls/hr IV .[id number] PRN PRN Reason: Saline Flush Sodium Chloride () 250 mls @ 15 mls/hr IV .[id number] PRN PRN Reason: Additional IVPB Infusion Magnesium Hydroxide (Milk Of Magnesia) 30 ml PO DAILY PRN PRN PRN Reason: Constipation Morphine Sulfate () 2 - 4 mg IV Q3H PRN PRN PRN Reason: Pain Score 6-10/10 Nutritional Formula (Lactose Free) (Ensure Clear) 120 ml PO TIDCM [facility] Last Admin: 01/01/20 11:17 Dose: 120 ml Documented by: Ondansetron HCl (Zofran) 4 mg IV Q8H PRN PRN PRN Reason: NAUSEA/VOMITING Oxycodone HCl (Oxyir) 5 mg PO Q4H PRN PRN PRN Reason: Pain Score 4-5/10 Pregabalin (Lyrica) 50 mg PO QHS [facility] Last Admin: 12/31/19 21:03 Dose: 50 mg Documented by: Prochlorperazine Edisylate (Compazine Iv) 5 mg IV Q4H PRN PRN PRN Reason: Breakthrough Nausea/Vomiting Senna/Docusate Sodium (Senokot-S, Andrenia-Colace) 2 tablet PO BID PRN PRN PRN Reason: Constipation Sodium Chloride () 10 - 40 ml IV UD PRN PRN Reason: Port-a-Cath (VAD) Flush Last Admin: 01/01/20 11:15 Dose: 10 ml Documented by: Sodium Chloride (0.9% Nacl (Sterile) Posiflush) 10 - 40 ml IV UD PRN PRN Reason: Port access or dressing change Tramadol HCl (Ultram) 50 mg PO QHS [facility] Last Admin: 12/31/19 21:04 Dose: 50 mg Documented by: Medical Necessity - Tobacco Use Smoking Status: Never smoker Tobacco Use: Non-smoker Assessment/Plan All Active Problems (Last Reviewed 12/31/19 @ 21:[address] Pauly Sheppard, DO) Hypocalcemia (Acute) Dyspnea (Acute) Cyanotic fingertip (Resolved) Encounter for education (Resolved) Encounter for insertion of venous access port (Resolved) Pneumonia (Resolved) #1 recurrent bilateral pleural effusions-most probably secondary to metastatic breast cancer, Pleurx catheters will be placed tomorrow #2 metastatic breast cancer to the brain and bone with suspected metastases to the pleura #3 severe protein and caloric malnutrition secondary to breast cancer- nutritional services is seeing patient #4 chronic anemia-secondary to either anemia of chronic disease or chemotherapy for her breast cancer #5 hypocalcemia-possibly secondary to malnutrition versus breast cancer-patient was given calcium supplementation on admission #6 hypoxia secondary to bilateral pleural effusions-patient is currently on supplemental nasal cannula O2. Inpatient E&M: [id number] [facility] Hosp L2
[2020-01-01] MEDS: Acetaminophen 325 MG Tablet 650 MG PO ×2 (16:40→23:00)
[2020-01-01] MEDS: Pregabalin 50 MG Capsule PO (20:46)
[2020-01-01] MEDS: traMADol 50 MG Tablet PO (20:46)
[2020-01-02] VITALS (15 sets, daily range): BP systolic 96–129; BP diastolic 67–77; PULSE 99–127; RESP 14–32; TEMP 36.3–37.1; O2SAT 93–98
--- NOTE | 2020-01-02 | FLU_PTH ---
PATIENT: MARVIN VALDEZ LOC: [facility] U#:[id number] AGE/SX: 69/F ROOM: [facility] RE12/31/[address]: Dr. Lino Cruz DO : 1950 BED: 1 DIS: 01/03/2020 SPEC #: [id number] RECD: 01/02/20 15:00 STATUS: PERLITA RETrevor #: [id number] VINCENT: 01/02/20 00:[address]: Lino Cruz DEPT: CYTOLOGY RECD BY: Melchor Mac ENTERED: 01/03/20 09:02 SP TYPE: Fluid OTHR DR: MD Dr. Pauly Santos, Golden Goldsmith MD Tissues: THORACIC FLUID Procedures: Special Stain Group II Surgery Specimen Level IV Cytospin Fluid HEADER OPERATION: Ultrasound-guided thoracentesis PRE-OP DIAGNOSIS: Bilateral pleural effusions TISSUE SUBMITTED: Thoracentesis fluid for cytology DIAGNOSIS CYTOLOGY Thoracentesis fluid for cytology (cytospin and cell block): Negative for malignant cells. AM:eveline 01/04/20 CYTOLOGY STUDY Slides are reviewed. CYTOLOGY GROSS Received is 95 ml of camacho hazy fluid labeled with the patient's name and and designated per the requisition as thoracentesis. Submitted for cytology preparation including cell block. / eveline 01/03/20 TC:5 CPT: 24257, 50632
--- NOTE | 2020-01-02 07:34 | PN.SURG_ITS ---
Patient Problems: Active and Suspected Problems (Last Reviewed 12/31/19 @ 21:[address] Pauly Sheppard, DO) Hypocalcemia (Acute) Subjective: Patient is not in any distress this morning - Physical Exam Vitals/I&O's: Vital Signs Temp Pulse Resp BP Pulse Ox 98.8 F 104 H 20 H 101/67 95 01/02/20 06:30 01/02/20 06:49 01/02/20 06:30 01/02/20 06:30 01/02/20 06:30 Oxygen Flow Rate (L/min) 3 Oxygen Delivery Method Room Air Weight: 94 lb 12.78 oz Body Mass Index (BMI) 15.7 Intake and Output for Last 24 Hours 12/31/19 01/01/20 01/02/20 23:59 23:59 23:59 Intake Total 1420 / 1660 1180 / 1180 Output Total 0 / 0 Balance 1420 / 1660 1180 / 1180 0 / 0 General: Alert, Oriented x3 Lungs: Diminished Cardiovascular: Regular rate, Regular Rhythm Abdomen: Soft, Non Tender, Non-Distended Laboratory Results 01/01/20 06:54: Platelet Estimate ADEQUATE, Hypochromasia 1+, Anisocytosis 1+, Macrocytosis 2+, Ovalocytes 1+ 01/01/20 06:54: Phosphorus 3.0 Current Medications Acetaminophen (Tylenol) 650 mg PO Q6H PRN PRN PRN Reason: Pain Score 1-10/Temp > 100.7 F Last Admin: 01/01/20 23:00 Dose: 650 mg Documented by: Al Hydroxide/Mg Hydroxide (Mylanta Ii) 30 ml PO Q6H PRN PRN PRN Reason: Gastric Burning Albuterol Sulfate (Ventolin Aerosols) 2.5 mg INHALATION Q2H PRN PRN PRN Reason: SOB/Wheezing Last Admin: 01/01/20 09:23 Dose: 2.5 mg Documented by: Bisacodyl (Dulcolax) 5 mg PO DAILY PRN PRN PRN Reason: Constipation [facility] Last Admin: 01/01/20 16:37 Dose: 500 mg Documented by: Carvedilol (Coreg) 3.125 mg PO BID [facility] Last Admin: 01/01/20 20:47 Dose: 3.125 mg Documented by: Cholecalciferol (Vitamin D (25mcg)) 1,000 unit PO DAILY [facility] Last Admin: 01/01/20 08:19 Dose: 1,000 unit Documented by: Dexamethasone [facility]Decadron) [facility] Last Admin: 01/01/20 08:19 Dose: 4 mg Documented by: Enoxaparin Sodium (Lovenox) 40 mg SC DAILY [facility] Last Admin: 01/01/20 08:21 Dose: 40 mg Documented by: Famotidine (Pepcid) 20 mg PO BID [facility] Last Admin: 01/01/20 20:46 Dose: 20 mg Documented by: Guaifenesin (Robitussin) 20 ml PO Q4H PRN PRN PRN Reason: COUGH Heparin Sodium (Beef Lung) () 50 units IV UD PRN PRN Reason: Port-a-Cath (VAD)Heparin Flush Sodium Chloride () 250 mls @ 15 mls/hr IV .[id number] PRN PRN Reason: Saline Flush Sodium Chloride () 250 mls @ 15 mls/hr IV .[id number] PRN PRN Reason: Additional IVPB Infusion Magnesium Hydroxide (Milk Of Magnesia) 30 ml PO DAILY PRN PRN PRN Reason: Constipation Morphine Sulfate () 2 - 4 mg IV Q3H PRN PRN PRN Reason: Pain Score 6-10/10 Nutritional Formula (Lactose Free) (Ensure Clear) 120 ml PO TIDCM [facility] Last Admin: 01/01/20 16:40 Dose: 120 ml Documented by: Ondansetron HCl (Zofran) 4 mg IV Q8H PRN PRN PRN Reason: NAUSEA/VOMITING Oxycodone HCl (Oxyir) 5 mg PO Q4H PRN PRN PRN Reason: Pain Score 4-5/10 Pregabalin (Lyrica) 50 mg PO QHS [facility] Last Admin: 01/01/20 20:46 Dose: 50 mg Documented by: Prochlorperazine Edisylate (Compazine Iv) 5 mg IV Q4H PRN PRN PRN Reason: Breakthrough Nausea/Vomiting Senna/Docusate Sodium (Senokot-S, Andreina-Colace) 2 tablet PO BID PRN PRN PRN Reason: Constipation Sodium Chloride () 10 - 40 ml IV UD PRN PRN Reason: Port-a-Cath (VAD) Flush Last Admin: 01/01/20 11:15 Dose: 10 ml Documented by: Sodium Chloride (0.9% Nacl (Sterile) Posiflush) 10 - 40 ml IV UD PRN PRN Reason: Port access or dressing change Tramadol HCl (Ultram) 50 mg PO QHS [facility] Last Admin: 01/01/20 20:46 Dose: 50 mg Documented by: Medical Necessity - Tobacco Use Smoking Status: Never smoker Tobacco Use: Non-smoker Assessment/Plan All Active Problems (Last Reviewed 12/31/19 @ 21:[address] Pauly Sheppard, DO) Hypocalcemia (Acute) Dyspnea (Acute) Cyanotic fingertip (Resolved) Encounter for education (Resolved) Encounter for insertion of venous access port (Resolved) Pneumonia (Resolved) 69-year-old female with bilateral pleural effusions 1. Patient has bilateral recurrent effusions. She has metastatic breast cancer. The fluid has been tapped several times before and cytology has been negative. 2. I discussed with the patient's oncologist and he disagrees with the Pleurx catheters. He is said he would be unable to continue chemotherapy if she had Pleurx catheters in place. I discussed this with the patient and she would like to continue with chemotherapy. Recommend thoracentesis bilaterally. I discussed with Dr. Cruz as well. We will cancel surgery for today. Diet per primary team. Timo Benítez MD Pager: [facility] [address] [place] [address], [address] [place] [address] Office:
--- NOTE | 2020-01-02 07:59 | US_ITS ---
STUDY: ULTRASOUND GUIDED LEFT THORACENTESIS REASON FOR EXAM: Female, [address] EFF TECHNIQUE: Ultrasound guided COMPARISON: None. FINDINGS: After informed consent was obtained, patient was placed in the upright position at the site of the bed leaning over the bedside table. Appropriate site for thoracentesis was determined using sonographic guidance. Area was marked, then prepped and draped in a sterile manner. 2% Xylocaine was used as local anesthetic. A 15-gauge Yeuh valved catheter was advanced into the left hemithorax. 2 separate 50 mL test tubes were filled with straw-colored serous fluid to be sent to the lab for analysis. Then, another 750 mL of straw-colored serous fluid was withdrawn from the left hemithorax without difficulty. Patient tolerated the procedure well with no immediate complications. Post procedure film did not demonstrate a pneumothorax. US/Thoracentesis W US IMPRESSION: Successful ultrasound-guided left thoracentesis Electronically Signed: Rodney Gomez MD at 15:38 EDT , Service support ,
[2020-01-02] MEDS: dexAMETHasone 4 MG Tablet PO (09:02)
[2020-01-02] MEDS: Calcium Carbonate 500 MG Tablet PO ×2 (09:02→17:07)
[2020-01-02] MEDS: Famotidine 20 MG Tablet PO ×2 (09:03→21:39)
[2020-01-02] MEDS: Carvedilol 3.125 MG TABLET PO ×2 (09:03→21:39)
--- NOTE | 2020-01-02 10:27 | CASEMGMT ---
MARILOU CHACON Readmission Note Previous Admission: 12/16-609/200 Diagnosis: Dyspnea, exudative pleural effusion, pneumonia DC Disposition: Home with [facility]. Palliative Referral was made, but pt did not pursue after dc. DC appointments: Pt did see Oncologist. Per Dr. Goldsmith's office, pt was seen 12/26/2019 Current Admission Diagnosis: Bilateral pleural effusions, pneumonia, hypopcalcemia PMH: breast cancer, bone mets, brain mets, pleural effusions, PCP: Dr. Goldsmith Specialists: Ridge Dill, oncologist Intro role of CM to patient in room. Pt appears frail, short of breath and has significant conversational dyspnea. Readmission assessment kept brief for pt comfort. She is to have thoracentesis this afternoon. Pt does have Home oxygen and ambulatory equipment. Denies further needs for equipment @ home. is able to assist. Pt was current with [facility] and is agreeable to resume on dc. Pt voiced concerns that her physician states she cannot have lung drain placed if I am still having chemo. Pt is tearful and states she wants to continue with chemo treatments. MARILOU CHACON encouraged her continue speaking with physician to clarify options and care expectations. -recommend SW speak with pt again re: Palliative Care. Khoa ROSENBERG RN ACM
--- NOTE | 2020-01-02 14:45 | RAD_ITS ---
STUDY: X-RAY CHEST REASON FOR EXAM: Female, 69 years old. Chest pain after thoracentesis TECHNIQUE: Portable inspiration and expiration views COMPARISON: 12/31/2019 FINDINGS: EKG leads overlie the chest. Stable appearance of a right subclavian port. No postprocedural pneumothorax noted. Significant decrease in the size of a previously noted left pleural effusion since the previous study due to the recently performed thoracentesis. There remains a small left pleural effusion. No interval change in the appearance of the right hemithorax with diffuse pleural thickening and opacifications in the visualized right lung. Normal size heart. Normal mediastinum and lópez. Normal visualized pulmonary arteries. There is atherosclerotic calcification of the aortic arch with tortuosity. Extensive degenerative bony changes again noted with diffuse sclerotic sclerosis consistent with metastasis. There is no demonstrated abnormality of the visualized soft tissue structures of the upper abdomen. RAD/Chest Insp/Exp 2 View IMPRESSION: No postprocedural pneumothorax Small residual left pneumothorax after thoracentesis Right lung and hemithorax show no change since previous studies Diffuse osseous metastasis Electronically Signed: Rodney Gomez MD at 15:12 EDT , Service support ,
[2020-01-02 15:02] LABS: Cytology, Body Fluid / CSF SEE PATHOLOGY REPORT
--- NOTE | 2020-01-02 16:46 | PCM.PROGNOTE ---
Patient Problems: Active and Suspected Problems (Last Reviewed 12/31/19 @ 21:[address] Pauly Sheppard, DO) Hypocalcemia (Acute) Subjective: Patient was seen and examined today, she underwent a left thoracentesis with removal of approximately 850 cc of fluid. There is a small pneumothorax post thoracentesis, I have ordered another chest x-ray at 7:00 tonight. She will most probably need a right thoracentesis tomorrow. I talked with general surgery today and general surgery talked with her oncologist who was not in favor of inserting Pleurx catheters due to the fact the patient wanted to continue with chemotherapy for breast cancer. Objective: General: Alert, Oriented x3, Cooperative, No apparent distress, Well developed, cachectic appearing HEENT: Atraumatic, PERRLA, EOMI, Normocephalic Oral: Moist Mucosa Neck: Supple, No JVD, Trachea Midline, Thyroid Normal Size and Texture Lungs: No rhonchi, No wheeze, No rales, Diminished - Diminished breath sounds bilaterally over the lower lungs Cardiovascular: Regular rate, Regular Rhythm, Normal S1, Normal S2, No murmurs, PMI Normal, No rub noted, No Gallop Abdomen: Bowel Sounds Present, Soft, Non Tender, Non-Distended Extremities: No edema, Capillary Refill Less than 3 Seconds Skin: No rashes, No breakdown Musculoskeletal: No Tenderness to Palpation of Joints or Extremities, Cachexia, Muscle Wasting Neurological: Cranial nerves II-XII grossly intact, Neuro grossly intact, Sensory exam intact to light touch and pain Psych/Mental Status: Normal Affect, Appropriate, Alert and oriented to time, place, person, mood and affect - Physical Exam Vitals/I&O's: Vital Signs Temp Pulse Resp BP Pulse Ox 97.5 F L 126 H 32 H 129/77 H 94 01/02/20 15:29 01/02/20 15:42 01/02/20 15:42 01/02/20 15:42 01/02/20 15:29 Oxygen Flow Rate (L/min) [5] 3 Oxygen Flow Rate (L/min) [4] 3 Oxygen Flow Rate (L/min) [3] 3 Oxygen Flow Rate (L/min) [2] 3 Oxygen Flow Rate (L/min) [1 ( 3 Initial Baseline)] Oxygen Flow Rate (L/min) 2 Oxygen Delivery Method [5] Nasal Cannula Oxygen Delivery Method [4] Nasal Cannula Oxygen Delivery Method [3] Nasal Cannula Oxygen Delivery Method [2] Nasal Cannula Oxygen Delivery Method [1 ( Nasal Cannula Initial Baseline)] Oxygen Delivery Method Nasal Cannula Weight: 43 kg Body Mass Index (BMI) 15.7 Intake and Output for Last 24 Hours 12/31/19 01/01/20 01/02/20 23:59 23:59 23:59 Intake Total 1420 / 1660 1180 / 1180 240 / 240 Output Total 850 / 850 Balance 1420 / 1660 1180 / 1180 -610 / -610 Laboratory Results 01/02/20 14:45: Miscellaneous Cytology Pending Current Medications Acetaminophen (Tylenol) 650 mg PO Q6H PRN PRN PRN Reason: Pain Score 1-10/Temp > 100.7 F Last Admin: 01/01/20 23:00 Dose: 650 mg Documented by: Al Hydroxide/Mg Hydroxide (Mylanta Ii) 30 ml PO Q6H PRN PRN PRN Reason: Gastric Burning Albuterol Sulfate (Ventolin Aerosols) 2.5 mg INHALATION Q2H PRN PRN PRN Reason: SOB/Wheezing Last Admin: 01/01/20 09:23 Dose: 2.5 mg Documented by: Bisacodyl (Dulcolax) 5 mg PO DAILY PRN PRN PRN Reason: Constipation Calcium Carbonate (T[facility]) [facility] Last Admin: 01/02/20 09:02 Dose: 500 mg Documented by: Carvedilol (Coreg) 3.125 mg PO BID [facility] Last Admin: 01/02/20 09:03 Dose: 3.125 mg Documented by: Cholecalciferol (Vitamin D (25mcg)) 1,000 unit PO DAILY [facility] Last Admin: 01/02/20 09:03 Dose: 1,000 unit Documented by: Dexamethasone (Decadron) [facility] Last Admin: 01/02/20 09:02 Dose: 4 mg Documented by: Enoxaparin Sodium (Lovenox) 40 mg SC DAILY [facility] Last Admin: 01/02/20 08:05 Dose: Not Given Documented by: Famotidine (Pepcid) 20 mg PO BID [facility] Last Admin: 01/02/20 09:03 Dose: 20 mg Documented by: Guaifenesin (Robitussin) 20 ml PO Q4H PRN PRN PRN Reason: COUGH Heparin Sodium (Beef Lung) () 50 units IV UD PRN PRN Reason: Port-a-Cath (VAD)Heparin Flush Sodium Chloride () 250 mls @ 15 mls/hr IV .[id number] PRN PRN Reason: Saline Flush Sodium Chloride () 250 mls @ 15 mls/hr IV .[id number] PRN PRN Reason: Additional IVPB Infusion Magnesium Hydroxide (Milk Of Magnesia) 30 ml PO DAILY PRN PRN PRN Reason: Constipation Morphine Sulfate () 2 - 4 mg IV Q3H PRN PRN PRN Reason: Pain Score 6-10/10 Nutritional Formula (Lactose Free) (Ensure Clear) [facility] Last Admin: 01/02/20 12:25 Dose: Not Given Documented by: Ondansetron HCl (Zofran) 4 mg IV Q8H PRN PRN PRN Reason: NAUSEA/VOMITING Oxycodone HCl (Oxyir) 5 mg PO Q4H PRN PRN PRN Reason: Pain Score 4-5/10 Pregabalin (Lyrica) 50 mg PO QHS [facility]PL[facility] Last Admin: 01/01/20 20:46 Dose: 50 mg Documented by: Prochlorperazine Edisylate (Compazine Iv) 5 mg IV Q4H PRN PRN PRN Reason: Breakthrough Nausea/Vomiting Senna/Docusate Sodium (Senokot-S, Andreina-Colace) 2 tablet PO BID PRN PRN PRN Reason: Constipation Sodium Chloride () 10 - 40 ml IV UD PRN PRN Reason: Port-a-Cath (VAD) Flush Last Admin: 01/01/20 11:15 Dose: 10 ml Documented by: Sodium Chloride (0.9% Nacl (Sterile) Posiflush) 10 - 40 ml IV UD PRN PRN Reason: Port access or dressing change Tramadol HCl (Ultram) 50 mg PO QHS [facility]PL[facility]ED BY [facility] Last Admin: 01/01/20 20:46 Dose: 50 mg Documented by: Medical Necessity - Tobacco Use Smoking Status: Never smoker Tobacco Use: Non-smoker Assessment/Plan All Active Problems (Last Reviewed 12/31/19 @ 21:[address] Pauly Sheppard DO) Hypocalcemia (Acute) Dyspnea (Acute) Cyanotic fingertip (Resolved) Encounter for education (Resolved) Encounter for insertion of venous access port (Resolved) Pneumonia (Resolved) #1 recurrent bilateral pleural effusions-most probably secondary to metastatic breast cancer, patient underwent a left thoracentesis today, most probably she will need a right thoracentesis tomorrow. #2 metastatic breast cancer to the brain and bone with suspected metastases to the pleura #3 severe protein and caloric malnutrition secondary to breast cancer-nutritional services is seeing patient #4 chronic anemia-secondary to either anemia of chronic disease or chemotherapy for her breast cancer #5 hypocalcemia-possibly secondary to malnutrition versus breast cancer-patient was given calcium supplementation on admission #6 Chronic hypoxic respiratory failure-patient stated today that she has oxygen at home, she is currently on 3 L of nasal cannula oxygen. Inpatient E&M: 85307 Subs Hosp L2
--- NOTE | 2020-01-02 19:06 | RAD_ITS ---
STUDY: X-RAY CHEST REASON FOR EXAM: Female, 69 years old. possible pneumothorax after thora TECHNIQUE: Single AP portable view of the chest. COMPARISON: Earlier the same day FINDINGS: Port on the right extends to the superior vena cava There is a right mid and bilateral lower lung consolidation. There is moderate right pleural effusion. There is small left pleural effusion. There is no pneumothorax seen. Normal size heart. Normal mediastinum and lópez. Normal visualized pulmonary arteries. Normal visualized aortic arch and descending thoracic aorta. Sclerotic densities throughout the osseous structures consistent with metastatic disease are stable. There is no demonstrated abnormality of the visualized soft tissue structures of the upper abdomen. RAD/Chest 1 View (Portable) IMPRESSION: Right greater than left consolidation and pleural effusions. No pneumothorax. Electronically Signed: Joel Freire MD at 22:16 EDT , Service support ,
[2020-01-02] MEDS: Acetaminophen 325 MG Tablet 650 MG PO (20:36)
[2020-01-02] MEDS: Pregabalin 50 MG Capsule PO (21:39)
[2020-01-02] MEDS: traMADol 50 MG Tablet PO (21:39)
[2020-01-03] VITALS (10 sets, daily range): BP systolic 100–104; BP diastolic 54–68; PULSE 93–120; RESP 16–18; TEMP 36.4–36.8; O2SAT 96–100
--- NOTE | 2020-01-03 | FLU_PTH ---
PATIENT: MARVIN VALDEZ LOC: [facility] U#:[id number] AGE/SX: 69/F ROOM: [facility] RE12/31/[address]: Dr. Lino Cruz DO : 1950 BED: 1 DIS: 01/03/2020 SPEC #: [id number] RECD: 01/03/20 13:36 STATUS: PERLITA REQ #: [id number] VINCENT: 01/03/20 00:[address]: Lino Cruz DEPT: CYTOLOGY RECD BY: Indra Ames ENTERED: 01/03/20 13:37 SP TYPE: Fluid OTHR DR: MD Dr. Pauly Santos, Golden Goldsmith MD Tissues: THORACIC FLUID Procedures: Surgery Specimen Level IV Cytospin Fluid HEADER OPERATION: Thoracentesis left chest PRE-OP DIAGNOSIS: Bilateral pleural effusions TISSUE SUBMITTED: Thoracentesis fluid for cytology DIAGNOSIS CYTOLOGY Thoracentesis fluid for cytology (cytospin and cell block): Negative for malignant cells. See comment. SJ:eevline 01/04/20 COMMENT Immunohistochemistry ([id number]) supports the above diagnosis. Correlation with clinical findings and appropriate follow up are necessary. Please make reference to previous specimens ([id number], [id number] and [id number]) thoracentesis fluid for cytology with diagnosis of negative for malignant cells. Case has been reviewed in consultation with Dr. Luna who concurs with the above diagnosis. IDC:AM CYTOLOGY STUDY Slides are reviewed. CYTOLOGY GROSS Received is 80 ml of gold cloudy fluid labeled with the patient's name and and designated per the requisition as thoracentesis. Submitted for cytology preparation including cell block. / eveline 01/03/20 TC:5 CPT: 54033, 80228
--- NOTE | 2020-01-03 | IMM_PTH ---
PATIENT: MARVIN VALDEZ LOC: [facility] U#:[id number] AGE/SX: 69/F ROOM: [facility] RE12/31/[address]: Dr. Lino Cruz DO : 1950 BED: 1 DIS: 01/03/2020 SPEC #: [id number] RECD: 01/05/20 11:34 STATUS: SOUVee REQ #: [id number] VINCENT: 01/03/20 00:[address]: Lino Cruz DEPT: IMMUNOHISTOCHEMISTRY RECD BY: Taty Vidal ENTERED: 01/05/20 11:36 SP TYPE: IMMUNO OTHR DR: MD Dr. Pauly Santos, DO Golden Goldsmith MD Tissues: THORACIC FLUID Procedures: Flash Ret (add) CK20 (add) CK7 (add) CK8 (add) MACRO (add) MAMM (add) MN (add) TTF1 (add) Vimentin (add) GATA3 (add) ER (initial) PHYSICIAN & INSTITUTION [address] [address] SPECIMEN INFORMATION: Tissue Source: Thoracentesis fluid Clinical Info: Bilateral pleural effusions Specimen Number: [id number] #2 CPT code: 34709, 96521 x10 METHODOLOGY: Deparaffinized sections of prefer/formalin-fixed tissue or PAP/DQ stained slides are incubated with monoclonal/polyclonal antibodies/oligonucleotide probes. Localization is made via biotin free immunoperoxidase method. Appropriate controls are performed and reacted as expected. Results on target cell population are indicated in the following table: RESULTS: ANTIBODY / CLONE RESULT Block 2 ER (6F11) negative MN (1E2) negative Mammaglobin (31A5) negative GATA3 (L50-823) negative CK7 (OV-TL12/30) negative * CK8 (92fvtqQ75) negative * CK20 (KS20.8) negative Vimentin (V9) negative * Macro (HAM-56) negative TTF-1 (8G7G3/1) negative CALRET (polyclonal) negative * *?Positive in mesothelial cells. These tests were developed and their performance characteristics determined by [facility]. They may not have been cleared or approved by the U.S. Food and Drug Administration. The FDA has determined that such clearance or approval is not necessary. The above immunohistochemical/dualISH markers are ordered and reviewed by the Pathologist. INTERPRETATION: Thoracentesis fluid: Negative for malignant cells. SJ:eveline 01/06/20
[2020-01-03] MEDS: Acetaminophen 325 MG Tablet 650 MG PO (07:56)
[2020-01-03 09:36] LABS: Absolute Lymphocyte Count 1.01 X10^3/uL (0.83-4.51); Absolute Neutrophil Count 7.2 X10^3/uL (2.0-7.7); Basophil# 0.01 X10^3/uL; Basophil% 0.1 % (0-1); Eosinophil# 0.01 X10^3/uL; Eosinophils% 0.1 % (0-5); Hemoglobin 9.3 g/dL (12.0-15.0); Lymphocyte # 1.01 X10^3/ul (4.0); Lymphocyte % 11.3 % (19-41); Mean Corpuscular Hgb 34.1 pg (27.0-32.0); Mean Corpuscular Volume 109.9 fL (81-99); Mean Platelet Vol. 9.4 fl (6.2-12.0); Monocyte# 0.67 X10^3/uL; Monocyte% 7.5 % (0-10); NRBC Flagged by Analyzer 0 % (0-5); Neutrophil # 7.24 X10^3/uL (2.7-7.7); Neutrophil % 80.8 % (47-70); POSITIVE MORPHOLOGY YES; Platelet Count 164 K/mm3 (150-450); RBC Distribution Width CV 17.3 % (11.6-14.6); RBC Distribution Width SD 69.6 fl (35.1-43.9); Red Blood Count 2.73 M/mm3 (4.2-5.4)
[2020-01-03 09:45] LABS: Differential Indicated SCAN CRITERIA MET
[2020-01-03 09:47] LABS: International Normalized Ratio 1.3; Prothrombin Time (Protime)PT. 15.7 SECONDS (11.7-14.9)
[2020-01-03 09:48] LABS: Partial Thromboplast Time 28.5 Seconds (24.1-36.2)
--- NOTE | 2020-01-03 09:59 | US_ITS ---
STUDY: ULTRASOUND GUIDED THORACENTESIS REASON FOR EXAM: Female, 69 years old. PLEURAL EFFUSION TECHNIQUE: Ultrasound guided COMPARISON: Multiple recent studies FINDINGS: After informed consent was obtained, the patient was placed sitting upright on the bedside leaning over the bedside table. Appropriate site for ultrasound-guided thoracentesis was determined in the left hemithorax. The area was prepped and draped in a sterile manner, and 2% Xylocaine was used as local anesthetic. Under sonographic guidance, a valved drainage catheter was advanced into the left hemithorax. Approximately 100 mL of straw-colored serous fluid was withdrawn into 2 separate syringe tubes to be sent to the lab for further analysis. Then, approximately 500 mL straw-colored serous fluid was withdrawn from the left hemithorax for total of 600 mL. Patient tolerated the procedure well with no immediate complications. A postprocedural chest x-ray did not show evidence of pneumothorax. US/Thoracentesis W US IMPRESSION: Successful fluoroscopically guided thoracentesis, part diagnostic, part therapeutic Electronically Signed: Rodney Gomez MD at 11:00 EDT , Service support ,
[2020-01-03 10:08] LABS: Anisocytosis 1+; Macrocytosis 1+; Poikilocytosis 1+
--- NOTE | 2020-01-03 10:25 | RAD_ITS ---
STUDY: X-RAY CHEST REASON FOR EXAM: Female, 69 years old. Post thoracentesis TECHNIQUE: Portable inspiration and expiration views COMPARISON: Yesterday FINDINGS: No postprocedural pneumothorax noted. EKG leads overlie the chest. Stable appearance of a right subclavian port. On current study, there is no evidence of residual left pleural effusion after thoracentesis. Left lung is free of superimposed process. The right lung continues to show right upper and lower lobe consolidations and likely loculated right pleural effusion. Normal size heart. Normal mediastinum and lópez. Normal visualized pulmonary arteries. Normal visualized aortic arch and descending thoracic aorta. Extensive sclerotic osseous metastasis again noted. There is no demonstrated abnormality of the visualized soft tissue structures of the upper abdomen. RAD/Chest Insp/Exp 2 View IMPRESSION: No postprocedural pneumothorax No evidence of left-sided effusion on current study Left lung is free of a superimposed acute pulmonary process Right lung is unchanged from previous studies Diffuse sclerotic bony metastasis Electronically Signed: Rodney Gomez MD at 10:46 EDT , Service support ,
[2020-01-03 10:33] LABS: Cytology, Body Fluid / CSF SEE PATHOLOGY REPORT
[2020-01-03] MEDS: Calcium Carbonate 500 MG Tablet PO ×2 (10:44→16:19)
[2020-01-03] MEDS: Famotidine 20 MG Tablet PO (10:44)
[2020-01-03] MEDS: dexAMETHasone 4 MG Tablet PO (10:44)
[2020-01-03] MEDS: Carvedilol 3.125 MG TABLET PO (10:48)
--- NOTE | 2020-01-03 10:51 | NURSING ---
0800 medications late due to patient being off floor for thoracentesis.
--- NOTE | 2020-01-03 11:10 | NURSING ---
Updated patient's daughter, Charisse, on patient status at this time
[2020-01-03] MEDS: Ensure Clear 120 ML Liquid PO (16:19)
--- NOTE | 2020-01-03 17:01 | DS.PCM_ITS ---
Discharge Date and Diagnosis - Problem List Patient Problems: Active and Suspected Problems (Last Reviewed 12/31/19 @ 21:[address] Pauly Sheppard DO) Hypocalcemia (Acute) Date of Admission: 12/31/19 Date of Discharge: 01/03/20 - Primary Discharge Diagnosis Acute Problems: Active Problems (Last Reviewed 12/31/19 @ 21:[address] Pauly Sheppard DO) #1 bilateral pleural effusions probably secondary to metastatic breast cancer #2 acute on chronic hypoxic respiratory failure #3 metastatic breast cancer #4 severe protein and caloric malnutrition #5 chronic anemia secondary to either chemotherapy or anemia of chronic disease from breast cancer #6 hypocalcemia - Secondary Discharge Diagnosis Chronic Problems: Chronic Problems (Last Reviewed 12/31/19 @ 21:[address] Pauly Sheppard DO) Macrocytic anemia (Chronic) Hyperparathyroidism (Chronic) Primary cancer of right female breast (Chronic) Bone metastases (Chronic) Pleural effusion, bilateral (Chronic) Tachycardia (Chronic) Chest pain (Chronic) Brain metastases (Chronic) Hospital Course and Treatment Imaging Results: 01/03/20 09:59 US Thora [Thoracentesis W US] [US] Routine 01/03/20 10:25 Chest Insp/Exp 2 View [RAD] Stat Operations: None Procedures: Thoracentesis Summary of Care Provided: The patient is a 69 year old F seen in the emergency room with a chief complaint of shortness of breath, she has an extensive history of metastatic breast cancer to the bone and brain and she had recurrent pleural effusions, work-up in the emergency room revealed the patient to have bilateral pleural effusions, also ox was 99% on 2 L nasal cannula, lab work showed a hemoglobin of 10.8 the patient's calcium was slightly low. Patient was admitted to PCU, she was seen in consultation by general surgery for possible Pleurx catheter placement however, oncology did not want the patient to have a Pleurx catheter placed due to the fact that she was electing to undergo further chemotherapy. Patient underwent 2 thoracentesis to the left lung with removal of approximately 1400 cc of fluid. On 01/03/2020, patient was seen and examined: On examination she appeared cachectic and older than her stated age, she does not appear to be in any distress. Vital signs as documented. Skin warm and dry and without overt rashes. Neck without JVD, thyroid appears normal, trachea is midline, neck is supple. Lungs-breath sounds were decreased in the right lung base, otherwise lungs were clear bilaterally .Heart exam notable for regular rhythm, normal sounds and absence of murmurs, rubs or gallops. Abdomen unremarkable and without evidence of organomegaly, masses, or abdominal aortic enlargement, bowel sounds are present in all 4 quadrants, no abdominal tenderness was noted. Extremities nonedematous, no cyanosis was noted, no clubbing was noted. Neuro: Cranial nerv es II through XII are grossly intact, no focal motor deficits were noted, sensation to light touch and pinprick is intact, motor exam 5/5 throughout. Psych: Patient is alert and oriented x3, she does not appear anxious or depressed, she does not appear agitated. Patient was felt to be stable for discharge on 01/03/2020. She was to follow-up at [facility] for further radiation treatment later on this week Patient Problems: Active and Suspected Problems (Last Reviewed 12/31/19 @ 21:[address] Pauly Sheppard, DO) Hypocalcemia (Acute) - Physical Exam Vitals/I&O's: Vital Signs Temp Pulse Resp BP Pulse Ox 98.3 F 107 H 18 104/68 99 01/03/20 15:40 01/03/20 15:40 01/03/20 15:40 01/03/20 15:40 01/03/20 15:40 Oxygen Flow Rate (L/min) [5] 3 Oxygen Flow Rate (L/min) [4] 2 Oxygen Flow Rate (L/min) [3] 2 Oxygen Flow Rate (L/min) [2] 2 Oxygen Flow Rate (L/min) [1 ( 3 Initial Baseline)] Oxygen Flow Rate (L/min) 3 Oxygen Delivery Method [5] Nasal Cannula Oxygen Delivery Method [4] Nasal Cannula Oxygen Delivery Method [3] Nasal Cannula Oxygen Delivery Method [2] Nasal Cannula Oxygen Delivery Method [1 ( Nasal Cannula Initial Baseline)] Oxygen Delivery Method Nasal Cannula Weight: 43 kg Body Mass Index (BMI) 15.7 Intake and Output for Last 24 Hours 01/01/20 01/02/20 01/03/20 23:59 23:59 23:59 Intake Total 1180 / 1180 720 / 720 420 / 420 Output Total 850 / 850 600 / 600 Balance 1180 / 1180 -130 / -130 -180 / -180 Microbiology Past 72 Hours 12/31/19 15:30 Blood Culture (Wb) - Port Blood Culture - Preliminary No growth in 48 hours. Laboratory Results 01/03/20 09:30: PT 15.7 H, INR 1.3, APTT 28.5 01/03/20 09:30: WBC 9.0, RBC 2.73 L, Hgb 9.3 L, Hct 30.0 L, MCV 109.9 H, MCH 34.1 H, MCHC 31.0 L, RDW Std Deviation 69.6 H, RDW Coeff of Rajni 17.3 H, Plt Co unt 164, MPV 9.4, Immature Gran % (Auto) 0.200, Neut % (Auto) 80.8 H, Lymph % (Auto) 11.3 L, Pendleton % (Auto) 7.5, Eos % (Auto) 0.1, Baso % (Auto) 0.1, Absolute Neuts (auto) 7.2, Absolute Lymphs (auto) 1.01, Nucleated RBC % 0, Poikilocytosis 1+, Anisocytosis 1+, Macrocytosis 1+ 01/03/20 10:00: Miscellaneous Cytology Pending Current Medications Acetaminophen (Tylenol) 650 mg PO Q6H PRN PRN PRN Reason: Pain Score 1-10/Temp > 100.7 F Last Admin: 01/03/20 07:56 Dose: 650 mg Documented by: Al Hydroxide/Mg Hydroxide (Mylanta Ii) 30 ml PO Q6H PRN PRN PRN Reason: Gastric Burning Albuterol Sulfate (Ventolin Aerosols) 2.5 mg INHALATION Q2H PRN PRN PRN Reason: SOB/Wheezing Last Admin: 01/01/20 09:23 Dose: 2.5 mg Documented by: Bisacodyl (Dulcolax) 5 mg PO DAILY PRN PRN PRN Reason: Constipation [facility]) [facility] Last Admin: 01/03/20 16:19 Dose: 500 mg Documented by: Carvedilol (Coreg) 3.125 mg PO BID [facility] Last Admin: 01/03/20 10:48 Dose: 3.125 mg Documented by: Cholecalciferol (Vitamin D (25mcg)) 1,000 unit PO DAILY [facility] Last Admin: 01/03/20 10:44 Dose: 1,000 unit Documented by: Dexamethasone (Decadron) [facility] Last Admin: 01/03/20 10:44 Dose: 4 mg Documented by: Enoxaparin Sodium (Lovenox) 40 mg SC DAILY [facility] Last Admin: 01/03/20 10:44 Dose: Not Given Documented by: Famotidine (Pepcid) 20 mg PO BID [facility] Last Admin: 01/03/20 10:44 Dose: 20 mg Documented by: Guaifenesin (Robitussin) 20 ml PO Q4H PRN PRN PRN Reason: COUGH Heparin Sodium (Beef Lung) () 50 units IV UD PRN PRN Reason: Port-a-Cath (VAD)Heparin Flush Sodium Chloride () 250 mls @ 15 mls/hr IV .[id number] PRN PRN Reason: Saline Flush Sodium Chloride () 250 mls @ 15 mls/hr IV .[id number] PRN PRN Reason: Additional IVPB Infusion Magnesium Hydroxide (Milk Of Magnesia) 30 ml PO DAILY PRN PRN PRN Reason: Constipation Morphine Sulfate () 2 - 4 mg IV Q3H PRN PRN PRN Reason: Pain Score 6-10/10 Nutritional Formula (Lactose Free) (Ensure Clear) 120 ml PO TIDCM [facility] Last Admin: 01/03/20 16:19 Dose: 120 ml Documented by: Ondansetron HCl (Zofran) 4 mg IV Q8H PRN PRN PRN Reason: NAUSEA/VOMITING Oxycodone HCl (Oxyir) 5 mg PO Q4H PRN PRN PRN Reason: Pain Score 4-5/10 Pregabalin (Lyrica) 50 mg PO QHS [facility] Last Admin: 01/02/20 21:39 Dose: 50 mg Documented by: Prochlorperazine Edisylate (Compazine Iv) 5 mg IV Q4H PRN PRN PRN Reason: Breakthrough Nausea/Vomiting Senna/Docusate Sodium (Senokot-S, Andreina-Colace) 2 tablet PO BID PRN PRN PRN Reason: Constipation Sodium Chloride () 10 - 40 ml IV UD PRN PRN Reason: Port-a-Cath (VAD) Flush Last Admin: 01/01/20 11:15 Dose: 10 ml Documented by: Sodium Chloride (0.9% Nacl (Sterile) Posiflush) 10 - 40 ml IV UD PRN PRN Reason: Port access or dressing change Tramadol HCl (Ultram) 50 mg PO QHS [facility] Last Admin: 01/02/20 21:39 Dose: 50 mg Documented by: Home Medications: Medications to take at Discharge traMADol [Ultram] 50 mg PO QHS 04/19/19 Cholecalciferol (VIT D3) [Vitamin D3] 1,000 unit PO DAILY 06/23/19 carvedilol 3.125 mg tablet 3.125 mg PO BID #60 tab 12/15/19 Ensure Clear 120 ml PO TIDCM 30 Days #120 liquid 12/20/19 Dexamethasone [Decadron] 4 mg PO DAILY 12/31/19 Pregabalin [Lyrica] 50 mg PO QHS 01/03/20 Pregabalin [Lyrica] 50 mg PO QHS cap 01/03/20 Primary Care Physician: Golden Goldsmith Chi, MD [Primary Care Provider] - Please Follow Up With: Golden Goldsmith Chi, MD Disposition: Home Minutes spent on discharge:: 31 Medical Necessity - Tobacco Use Smoking Status: Never smoker Tobacco Use: Non-smoker Meaningful Use Info Meaningful Use Diagnoses (Choose all that apply): None applicable Inpatient E&M: 68709 Disch Hosp
--- NOTE | 2020-01-03 17:20 | DCINST_ITS ---
- Discharge Diagnoses Current Active Problems: Current Active and Chronic Problems (Last Reviewed 12/31/19 @ 21:[address] Pauly Sheppard, DO) Hypocalcemia (Acute) Macrocytic anemia (Chronic) Hyperparathyroidism (Chronic) You will use the following diet at home:: No restrictions Your food should be the consistency of: Regular Your liquids should be the consistency of: Regular/Thin Discharge Activity: Return to Normal Activity Weight Bearing Status: Full weight bearing Additional Instructions: Follow-up at [facility] as directed Allergies/Adverse Reactions: Allergies No Known Allergies Allergy (Verified 12/31/19 14:26) Medications to take at Discharge traMADol [Ultram] 50 mg PO QHS 04/19/19 Cholecalciferol (VIT D3) [Vitamin D3] 1,000 unit PO DAILY 06/23/19 carvedilol 3.125 mg tablet 3.125 mg PO BID #60 tab 12/15/19 Ensure Clear 120 ml PO TIDCM 30 Days #120 liquid 12/20/19 Dexamethasone [Decadron] 4 mg PO DAILY 12/31/19 Pregabalin [Lyrica] 50 mg PO QHS 01/03/20 Pregabalin [Lyrica] 50 mg PO QHS cap 01/03/20 Primary Care Physician: Golden Goldsmith Chi, MD [Primary Care Provider] - Test Results: Test results from this visit will be discussed in further detail at your follow- up appointment, if applicable. Please Follow Up With: Golden Goldsmith Chi, MD
[2020-01-03] MEDS: 0.9% Saline Lock 10 ML Syringe IV (17:56)
--- NOTE | 2020-01-04 15:04 | CASEMGMT ---
MARILOU CHACON Discharge F/U Phone Call LACE: 12 Strata: 3 Discharge date: 01/03/2020 Call date: 01/04/2020 Call time: [id number] Admission dx: Bilat pleural effusions, hypocalcemia, breast cancer Pt states has been doing 'fine' since discharge. Pt states that [facility] nurse was just out to see her and is clarifying some meds with pt's PCP at this time. Pt states has f/u appt's scheduled and plans to keep. Pt states no suggestions for WC at this time. Pt voices no further questions/concerns/needs at this time. [place]en MARILOU CHACON
== END 2020-01-03 18:45 | disposition home or self-care (01) | DRG 186 ==
LOC: ED 15:19 → PCU 18:37
PROVIDERS: Surgery; Admitting Provider Internal Medicine; Emergency Provider Emergency Medicine; PCP Family Medicine Geriatric Medicine; Visit Provider Internal Medicine
DX: J90 Pleural effusion, not elsewhere classified (principal); J96.21 Acute and chronic respiratory failure with hypoxia; E43 Unspecified severe protein-calorie malnutrition; C79.51 Secondary malignant neoplasm of bone; C79.31 Secondary malignant neoplasm of brain; Z68.1 Body mass index [BMI] 19.9 or less, adult; I47.1 Supraventricular tachycardia; D64.81 Anemia due to antineoplastic chemotherapy; D63.8 Anemia in other chronic diseases classified elsewhere; E83.51 Hypocalcemia; G62.9 Polyneuropathy, unspecified; K21.9 Gastro-esophageal reflux disease without esophagitis; E83.39 Other disorders of phosphorus metabolism; Z66 Do not resuscitate; Z85.3 Personal history of malignant neoplasm of breast; Z90.11 Acquired absence of right breast and nipple; Z79.899 Other long term (current) drug therapy
CPT/HCPCS: 32555; 36591; 71045; 71046; 71250; 80048; 80053; 83605; 83735; 84100; 84484; 85025; 85610; 85730; 87040; 87635; 88108; 88305; 88313; 88341; 88342; 93005; 94640; 97802; 99251; 99284; G2023; J7050; A4216; G0463; J0610; J2405; U0003

== ENCOUNTER 2020-01-27 18:08 | Inpatient (IN) | payer MEDICARE, OTHER, SELFPAY ==
[2019-04-18 14:31] VITALS: BMI 15.3
[2020-01-23 12:23] VITALS: BMI 16.2
[2020-01-27] VITALS (7 sets, daily range): BP systolic 100–116; BP diastolic 70–78; PULSE 109–129; RESP 17–19; TEMP 36.4–37.1; O2SAT 93–98; BMI 16.0; BMI 15.4
--- NOTE | 2020-01-27 18:33 | EKG12_ITS ---
Test Reason : SOB Blood Pressure : / mmHG Vent. Rate : 110 BPM Atrial Rate : 110 BPM P-R Int : 138 ms QRS Dur : 072 ms QT Int : 352 ms P-R-T Axes : 060 080 081 degrees QTc Int : 476 ms Sinus tachycardia with Premature atrial complexes Otherwise normal ECG Confirmed by DRE BEAVER, KELLIE ([id number]), field map editor SHYANNE ROYAL ([id number]) on 01/31/2020 9:22:27 AM Referred By: SILVIA Confirmed By:KELLIE ERICKSON MD
--- NOTE | 2020-01-27 18:35 | ED.VIS.GEN ---
History of Present Illness Chief Complaint: Shortness of Breath Informant: Patient, Family Narrative: Patient is a 69-year-old female who presents to the emergency department for shortness of breath. Unfortunately patient was diagnosed with metastatic breast cancer. She has had frequent pleural effusions requiring drained 3 times. She has been having increased shortness of breath. Her home health nurse thought that she had decreased breath sounds on one side. She does have some pain on the right lower side. She did have a recent PET scan which showed a possible metastasis in that area. She has been scanned multiple times for PEs and she denies ever having one. She is also been tested for coronavirus 3 times and each time she has been negative. She denies any fevers or chills. She has been coughing more frequently today bringing up a yellow sputum. No swelling in her legs or pain in her calves. No known relieving factors. She does feel fatigued. She is still undergoing chemotherapy. She states she gets it weekly for 3 weeks and then has 1 week off. Past Medical History - Allergies and Home Meds Allergies/Adverse Reactions: Allergies No Known Allergies Allergy (Verified 01/23/20 12:22) Past Medical History: - - Metastatic cancer, history of pleural effusions, anemia Smoking Status: Never smoker - Family History Maternal Family History: Family History (Last Reviewed 01/23/20 @ 12:21 by Amanda Diallo) Mother Colon cancer Father Heart disease Family History: Reports: Cancer - Other with history of colon cancer Paternal Family History: Family History (Last Reviewed 01/23/20 @ 12:21 by Amanda Diallo) Mother Colon cancer Father Heart disease Family History: Reports: High Cholesterol, Heart Disease, Hypertension Review of Systems All systems negative except as indicated General: Denies: Chills, Fever, Sweats Eyes: Denies: Visual changes - bilaterally, Diplopia ENT: Denies: Rhinorrhea, Sore throat Cardiovascular: Reports: Chest pain - Right lateral chest wall pain. Denies: Palpitations Respiratory: Reports: Dyspnea, Dyspnea on exertion. Denies: Cough Gastrointestinal: Denies: Abdominal pain, Nausea, Vomiting, Diarrhea, Melena, Hematochezia Genitourinary: Denies: Dysuria, Hematuria, Frequency Musculoskeletal: Denies: Back pain, Extremity Pain Skin: Denies: Rash, Wounds Neurological: Denies: Headache, Weakness, Numbness Physical Exam Vital Signs/Narrative: Vital Signs Temp Pulse Resp BP Pulse Ox 01/27/20 18:09 97.6 F L 129 H 17 100/70 93 Inital Vital Signs reviewed: Yes General: Well nourished, Well developed, Cachectic, No Acute Distress Head: Normocephalic, Atraumatic Eyes: Perrl, EOMI ENT: Moist mucous membranes, No rhinorrhea Neck: Supple, Nontender Cardiovascular: Regular rhythm, No murmurs, Tachycardia Respiratory: No distress, Chest tenderness - Right lower ribs, - - Decreased breath sounds on the left Abdomen: Soft, Nontender, Nondistended, Normal bowel sounds Back: Nontender, Normal Inspection Extremities: Nontender, No edema. Negative for: Edema, Calf Tenderness Skin: Normal color, No rash Neurological: Alert, Oriented x3, Cranial nerves II-XII grossly intact, Normal Strength, Normal Sensation Psychological: Normal affect, Normal Mood Diagnostic/Tx/Re-eval - Medical Decision Making Patient presents to the emerge department for shortness of breath. She does have a home health care nurse that was concerned that she had a recurrence of her pleural effusions which have been drained multiple times in the past. Upon arrival to the emergency department she is mildly hypoxic. She is tachycardic. Otherwise does not appear in acute distress. We will repeat basic lab work, EKG and chest x-ray. Unfortunately patient's chest x-ray does show reaccumulation of a left-sided pleural effusion. There is also some evidence of bibasilar consolidation. Her white blood cell count has trended upward from her recent lab draw a few days prior. We will start her on hospital-acquired pneumonia antibiotics. Will bring her in for repeat drainage of this pleural effusion. Patient discussed with hospitalist. Plan made aware to patient. She understands and is agreeable with this plan. ED Disposition - Plan for ED Patient: Disposition: Acute Care Hospital [facility] Diagnosis: Recurrent pleural effusion on left, Hospital-acquired pneumonia, Dyspnea
[2020-01-27 18:58] LABS: Hematocrit 29.7 % (37-47); Hemoglobin 9.6 g/dL (12.0-15.0); Mean Corp Hgb Conc 32.3 g/dL (32-36); Mean Corpuscular Hgb 34.3 pg (27.0-32.0); Mean Corpuscular Volume 106.1 fL (81-99); Mean Platelet Vol. 10.3 fl (6.2-12.0); POSITIVE COUNT YES; POSITIVE MORPHOLOGY YES; Platelet Count 113 K/mm3 (150-450); RBC Distribution Width CV 14.7 % (11.6-14.6); RBC Distribution Width SD 57.3 fl (35.1-43.9); White Blood Count 11.7 K/mm3 (4.4-11.0)
[2020-01-27 19:02] LABS: Differential Indicated MANUAL DIFF
--- NOTE | 2020-01-27 19:10 | RAD_ITS ---
STUDY: X-RAY CHEST REASON FOR EXAM: Female, 69 years old. PT C/O FLUID IN HER LUNG. STATES WAS DRAINED A COUPLE WEEKS AGO. BECAME MORE SOB TODAY. HX OF PLEURAL EFFUSIONS. TECHNIQUE: AP portable COMPARISON: January 03, 2020 FINDINGS: There is a moderate-sized left pleural effusion with consolidation of left lower lobe as well as a small to moderate-sized effusion on the right also with right basilar consolidation. Mediport catheter seen with tip in right atrium. Normal size heart. Normal mediastinum and lópez. Normal visualized pulmonary arteries. Normal visualized aortic arch and descending thoracic aorta. There are sclerotic metastasis is noted throughout the thoracic spine and other bony structures There is no demonstrated abnormality of the visualized soft tissue structures of the upper abdomen. RAD/Chest 1 View (Portable) IMPRESSION: Bilateral pleural effusions greater on the left with bibasilar consolidation Electronically Signed: Jono Abel MD at 19:31 EDT , Service support ,
[2020-01-27 19:22] LABS: ALB/GLOB Ratio 1.3 RATIO (0.9-2.4); AST(SGOT) 10 U/L (15-37); Alanine Aminotransfer ALT/SGPT 16 U/L (13-56); Alkaline Phosphatase 85 U/L (45-117); Anion Gap 5 (5-15); BUN 7 mg/dL (7-18); Calcium,Total 7.4 mg/dL (8.5-10.1); Chloride 110 mmol/L (98-107); Creatinine, Serum 0.19 mg/dL (0.55-1.02); EST Glomerular Filtration Rate 400 mL/min (>60); Est Glom Filt Rate - Afr Amer 484 mL/min (>60); Estimated Creatinine Clearance 37.01 ml/min; Globulin 2.3 g/dL (2.2-4.2); Glucose 88 mg/dL (74-106); Potassium 3.5 mmol/L (3.5-5.1); Protein, Total 5.3 g/dL (6.4-8.2); Sodium Level 142 mmol/L (136-145)
--- NOTE | 2020-01-27 20:00 | HP.PCM_ITS ---
Problem List (1) Pleural effusion, bilateral Status: Acute (2) Macrocytic anemia Status: Chronic (3) Primary cancer of right female breast Status: Chronic (4) Bone metastases Status: Chronic (5) Brain metastases Status: Chronic (6) Anemia Status: Chronic Qualifiers: Anemia type: unspecified type Qualified Code(s): D64.9 - Anemia, unspecified Comment: CARCINOMA OF RIGHT BREAST METASTATIC TO BONE History of Present Illness Date of Admission: 01/27/20 Chief Complaint: Dyspnea, productive cough The patient is a 69 y/o F w/ PMHx: Chronic neuropathy on lyrica, Hyperpar athyroidism, Chronic Tachycardia/SVT on coreg, Chronic Macrocytic Anemia/AOCD, Metastatic R breast CA to lung, bone and brain with frequent recurrent pleural effusions requiring serial thoracentesis with ongoing chemotherapy as well as radiation following w/ Dr. Sabillon with prior BL 12/31/19 planned pleure[address] catheters per Dr. Benítez however this was deferred given ongoing chemotherapy, GERD who presents to the [facility] ED on 01/27/20 with history of recurrent shortness of breath, more prominent decreased breath sounds per home health nurses and pleuritic right lower sided chest discomfort with recent PET scan demonstrating possible metastatic disease in this area with chronic cough although today bringing up more productive yellow sputum per report with ongoing chronic fatigue. Patient denies any recent fever or chills. Patient with radiation therapy at [facility] as well as ongoing chemotherapy weekly x 3 weeks with 1 week off. Work-up in the ED included 97.6, heart rate 129, BP 100/70, respi ratory 17, 93% on 3 L nasal cannula, CBC with WC 11.7, hemoglobin 9.6, platelet 113 without complete differential performed but absolute neutrophils pending, CMP with chloride 111, BUN/creatinine 7/0.19, calcium 7.4, total bilirubin 1.2, AST/ALT 10/16, alk phos 85, troponin less than 0.015, chest x-ray with recurrent biopsy lateral pleural effusions greater on the left with basilar consolidation. Past Medical History Past Medical History (Chronic Problems): Chronic Problems (Last Reviewed 01/23/20 @ 12:21 by Amanda Diallo) Macrocytic anemia (Chronic) Hyperparathyroidism (Chronic) Primary cancer of right female breast (Chronic) Bone metastases (Chronic) Tachycardia (Chronic) Chest pain (Chronic) Brain metastases (Chronic) Anemia (Chronic) CARCINOMA OF RIGHT BREAST METASTATIC TO BONE Medical History: Medical History (Last Reviewed 01/23/20 @ 12:21 by Amanda Diallo) Brain metastases (Chronic) C79.31 Anemia (Chronic) C50.919 CARCINOMA OF RIGHT BREAST METASTATIC TO BONE Breast cancer C79.51 Cancer, metastatic to bone M84.461A Heartburn symptom R12 Imbalance M84.463A Neuropathy G62.9 Postmenopausal bleeding N95.0 Swelling of right foot M79.89 Encounter for adjustment and management of vascular access device Z45.2 History of tamoxifen therapy S82.201A, S82.401A Right tibial fracture S82.201A Chemotherapy management, encounter for (Inactive) Z51.11 Allergies No Known Allergies Allergy (Verified 01/23/20 12:22) Home Medications: Ambulatory Orders Medication Instructions Recorded traMADol [Ultram] 50 mg PO QHS 04/19/19 Cholecalciferol (VIT D3) [Vitamin 1,000 unit PO DAILY 06/23/19 D3] carvedilol 3.125 mg tablet 3.125 mg PO BID #60 tab 12/15/19 Pregabalin [Lyrica] 50 mg PO QHS cap 01/03/20 Nut.tx.impaired Digestive Fxn 296 ml PO TID 01/27/20 [Ensure Clear Therapeutic] Surgical History: Surgical History (Last Reviewed 01/23/20 @ 12:36 by Amanda Diallo) History of open reduction and internal fixation (ORIF) procedure Onset Date: 09/2017 Z98.890 HUY PLACEMENT IN FEMOR History of right mastectomy Z90.11 History of thoracentesis Onset Date: 12/08/19 Z98.890 left SURGERY RIGHT TIBIAL Onset Date: 2018 2018 Surgical History: - - Frequent left-sided thoracentesis, right mastectomy, ORIF femur, right tibial surgery, port. 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 Denies: Chills, Fever, Weight Change HEENT: Denies: Head Aches, Sinus Congestion, Sinus Drainage Cardiovascular: Reports: Chest Pain, Orthopnea. Denies: Chest Pressure, Chest Tightness, Light Headedness, Palpitations, Syncope Respiratory: Reports: Cough, Pleuritic Pain, Shortness of Breath, Shortness of breath at rest, Shortness of breath upon exertion, Sputum production Gastrointestinal: Denies: Abdominal Pain, Nausea, Vomiting Genitourinary: Denies: Dysuria Musculoskeletal: Reports: Back Pain, Joint Pain. Denies: Joint Tenderness Skin: Denies: Rash, Wounds Neurological: Denies: Numbness, Tingling, Focal weakness Psychiatric: Denies: Anxiety, Depression, Homicidal Ideations, Suicidal Ideations Hematologic/ Lymphatic: Reports: Anemia, Easy Bruising, Easy Bleeding VTE Information - Inpt Only VTE Present on Admission: No VTE Mechan Device Prophylaxis: SCD's VTE Pharm Prophylaxis ordered?: No Reason prophylaxis not ordered:: Medical Contraindication Subjective: Seated upright in ED bed, fatigued appearance, no obvious distress but with movement increased work of breathing. Objective: Physical Examination: General: awake, alert, oriented x 3 and cooperative, seated upright in bed in no apparent distress but fatigued and obvious shortness of breath with exertional attempts. Skin: normal color, turgor, no icterus, cyanosis. HEENT: AT/NC, EOMI, PERRLA, mildly dry MM, no carotid bruits or JVD noted. Lungs: Diminished breath sounds, bilaterally, left greater than right mid to base, no obvious rales, ronchi or wheezing. Heart: Tachycardic with regular rhythm; no gallop, rub audible. Abdomen: soft, thin cachectic habitus, NTTP, ND, normal BS, no HSM. Extremities: no cyanosis, clubbing, or edema. Neurological: patient awake, alert, oriented as noted; cognitive function appears baseline intact; pupils equally reactive to light and accomodation; cranial nerves II-XII grossly normal, moving all 4 extremities, no focal deficits, strength severely global decrease secondary to acute presentation especially with exertional effort. Psychiatric: affect appears fatigued, flat, no acute evidence of depressive or anxiety feelings. - Physical Exam Vitals/I&O's: Vital Signs Temp Pulse Resp BP Pulse Ox 97.6 F L 129 H 17 100/70 93 01/27/20 18:09 01/27/20 18:09 01/27/20 18:09 01/27/20 18:09 01/27/20 18:09 Oxygen Delivery Method Nasal Cannula Weight: 96 lb Body Mass Index (BMI) 16.0 Laboratory Results 01/27/20 18:50: Sodium 142, Potassium 3.5, Chloride 110 H, Carbon Dioxide 27.0, Anion Gap 5, BUN 7, Creatinine 0.19 L, Estim Creat Clear Calc 37.01, Est GFR (MDRD) Af Amer 484, Est GFR (MDRD) Non-Af 400, BUN/Creatinine Ratio 37.0 H, Glucose 88, Calcium 7.4 L, Total Bilirubin 1.20 H, AST 10 L, ALT 16, Alkaline P hosphatase 85, Troponin I < 0.015, Total Protein 5.3 L, Albumin 3.0 L, Globulin 2.3, Albumin/Globulin Ratio 1.3 01/27/20 18:50: WBC 11.7 H, RBC 2.80 L, Hgb 9.6 L, Hct 29.7 L, MCV 106.1 H, MCH 34.3 H, MCHC 32.3, RDW Std Deviation 57.3 H, RDW Coeff of Rajni 14.7 H, Plt Count 113 L, MPV 10.3, Neut % (Auto) Not Reportable, Absolute Neuts (auto) Pending Current Medications Vancomycin HCl 1,000 mg/ (Dextrose) 270 mls @ 250 mls/hr IV X1 ONE Stop: 01/27/20 20:54 Piperacillin Sod/Tazobactam (Sod 4.5 gm/ Sodium Chloride) 100 mls @ 200 mls/hr IV X1 ONE Stop: 01/27/20 20:19 Sodium Chloride () 1,000 mls @ 150 mls/hr IV .Q6H40M AMOS Vancomycin HCl (Vancomycin) 1,000 mg in 200 mls @ 200 mls/hr IV X1 ONE Stop: 01/27/20 20:59 Assessment/Plan All Active Problems (Last Reviewed 01/23/20 @ 12:21 by Amanda Diallo) Hypocalcemia (Acute) Pleural effusion, bilateral (Acute) Dyspnea (Acute) Cyanotic fingertip (Resolved) Encounter for education (Resolved) Encounter for insertion of venous access port (Resolved) Pneumonia (Resolved) The patient is a 69 y/o F w/ PMHx: Chronic neuropathy on lyrica, Hyperparathyroidism, Chronic Tachycardia/SVT on coreg, Chronic Macrocytic Anemia/AOCD, Metastatic R breast CA to lung, bone and brain, GERD who presents to the [facility] ED on 01/27/20 with history of recurrent shortness of breath, more prominent decreased breath sounds per home health nurses and pleuritic right lower sided chest discomfort with recent PET scan demonstrating possible metastatic disease in this area with chronic cough although today bringing up more productive yellow sputum per report with ongoing chronic fatigue. 1. Recurrent pleural effusions, L>R with dyspnea on exertion and worsening metastatic breast cancer with ? Consolidation/HCAP: Given symptoms will admit to the PCU, continue empiric IV abx therapy pending thoracentesis and repeat imaging as well as sputum Cx, urine antigens, continue oral and IV pain regimen addition to chronic regimen, fall precautions. Patient previously was evaluated for Pleurx catheters but this had been deferred given ongoing chemotherapy but given serial admission. Discussed with patient oncologist and will attempt thoracentesis with Dr. Stoner but if unable will plan Thursday thoracentesis. In the future. Patient with recurrent effusion will be considered for Cardiothoracic placement of chest tube with pleurodesis. 2. Metastatic R breast CA to lung, bone and brain: Patient with frequent recurrent pleural effusions requiring serial thoracentesis with ongoing chemotherapy as well as radiation following w/ Dr. Sabillon, recent PET 01/10/20 scan with possible metastatic disease now in the right lower lung. Will obtain magnesium and phosphorus levels with repletion as needed. Discussed patient's presentation, deferred any consultation per discussion with oncology unless necessary. 3. Chronic macrocytic anemia/AOCD: Admission hemoglobin 9.6, MCV 106.1, similar to prior, secondary to ongoing interventions and underlying metastatic cancer, continue outpatient evaluation and work-up with oncology. 4. Hyperparathyroidism: Prior admissions with noted hypocalcemia, PTH most recently 12/18/2019 343.5. Continue outpatient evaluation and work-up. 5. Chronic tachycardia/SVT: We will continue patient home Coreg regimen. 6. Neuropathy with chronic pain syndrome: We will continue patient Lyrica and tramadol regimen as well as PRN agents. 7. Severe protein calorie malnutrition: Evidenced per BMI 16, obvious muscle and fat loss, nutrition consulted for input. 8. DVT prophylaxis: SCDs, defer chemoprophylaxis for planned thoracentesis however if unable to obtain would plan to restart and hold once intervention scheduled. 9. CODE status: Patient does not have healthcare power of criminal attorney nor living will set up. Her is still living and daughters present during conversations and notes they have strongly encouraged her to set these items up. She does note that they have discussed these items previously. Discussed CODE status at length including difference between FULL code, DNR-CCA and DNR-CC status. Following discussions about the differences in these status, requested DNR CCA with allowance of intubation. Advanced Care Planning Face to Face Time: 16 minutes. Inpatient E&M: 20018 Init Hosp L3 Procedures: 13249 Advncd Care Plan 30 Min
[2020-01-27 20:05] LABS: Lymphocyte 2 % (19-41); Monocyte 9 % (0-10); Neutrophil-Band 8 % (0-5); Total Cells Counted 100 (MANUAL DIFF)
[2020-01-27 20:08] LABS: Absolute Lymphocyte Count 0.23 X10^3/uL (0.83-4.51); Absolute Neutrophil Count 10.4 X10^3/uL (2.0-7.7)
[2020-01-27 20:11] LABS: Neutrophil-Segmented 81 % (47-70)
[2020-01-27] MEDS: 0.9% Normal Saline 1,000 ML 150 ML IV (20:37)
[2020-01-27 20:51] LABS: Lactic Acid 1.3 mmol/L (0.4-1.9)
[2020-01-27 21:09] LABS: Phosphorus 1.6 mg/dL (2.5-4.9)
--- NOTE | 2020-01-27 21:12 | PCM.RX.CS ---
Consult Pharmacy has been consulted to manage selected antiobiotic: Vancomycin Type of Consult: New start Suspected Infection: Sepsis Labs: Sodium 142 mmol/L (136-145) 01/27/20 18:50 Potassium 3.5 mmol/L (3.5-5.1) 01/27/20 18:50 Chloride 110 mmol/L (98-107) H 01/27/20 18:50 Carbon Dioxide 27.0 mmol/L (21.0-32.0) 01/27/20 18:50 Anion Gap 5 (5-15) 01/27/20 18:50 BUN 7 mg/dL (7-18) 01/27/20 18:50 Creatinine 0.19 mg/dL (0.55-1.02) L 01/27/20 18:50 Est GFR (MDRD) Af Amer 484 mL/min (>60) 01/27/20 18:50 Est GFR (MDRD) Non-Af 400 mL/min (>60) 01/27/20 18:50 BUN/Creatinine Ratio 37.0 RATIO (10-20) H 01/27/20 18:50 Glucose 88 mg/dL (74-106) 01/27/20 18:50 Weight used for dosin kg Estimated Creatinine Clearance: 37ml/min Goal Trough: 15-20 mcg/mL Pharmacy Plan for Drug Dosing: NEW START IV VANCOMYCIN Consulting Physician: Rakel Indication: pna, sepsis Goal Trough: 15-20 SrCr: 0.19 CrCl: 37 Comments: 1000mg dose given in ER 01/27/20 Vancomcyin Dose: 750mg IV q24h Pending Level:01/29/20 @ 2130 Pharmacy Service will continue to monitor and adjust dosing as required. Follow-Up Labs: Trough Vancomycin - 01/289
[2020-01-27 21:13] LABS: ALB/GLOB Ratio 1.2 RATIO (0.9-2.4); Globulin 2.4 g/dL (2.2-4.2); LDH 143 U/L (84-246); Magnesium 1.7 mg/dL (1.6-2.6); Protein, Total 5.3 g/dL (6.4-8.2)
[2020-01-27] MEDS: Vancomycin IV 1,000 MG/200 ML BAG 200 MG IV (21:32)
[2020-01-27] MEDS: traMADol 50 MG Tablet PO (21:35)
[2020-01-27] MEDS: Pregabalin 50 MG Capsule PO (21:35)
[2020-01-27] MEDS: Ensure Clear 120 ML Liquid 240 ML PO (21:36)
--- NOTE | 2020-01-27 22:48 | NURSING ---
Dr. Ellington notified of all labs results. Clarified order for BP control. Dr. Ellington states that parameters can be changed to hold antihypertensives for SBP =/< 110 mm Hg.
[2020-01-27] MEDS: Carvedilol 3.125 MG TABLET PO (23:04)
[2020-01-28] VITALS (9 sets, daily range): BP systolic 99–122; BP diastolic 60–85; PULSE 97–120; RESP 16–22; TEMP 36.4–36.9; O2SAT 96–98
--- NOTE | 2020-01-28 07:53 | PCM.CONS.PUL ---
Reason for Consult Date of Consultation: 01/28/20 Reason for Consultation: Recurrent pleural effusion History of Present Illness: The patient is a 69-year-old female, with a history as outlined below, who presented to the emergency department on January 26 with complaints of shortness of breath. The patient was last admitted to the hospital for 3 days at the end of December 2019 with respiratory failure as a consequence of bilateral pleural effusions. 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 She is currently being followed by Dr. Carrera of Oncology. To date, the patient has had 4 thoracenteses completed, the last occurring on January 02. None of her pleural fluid cytology results have ever been positive for malignant cells. However, there is still a high clinical index of suspicion that the effusions are in fact malignant, given the recent results of her PET scan. Surface echocardiogram last completed in December 2019 revealed a normal ejection fraction with a pulmonary artery systolic pressure estimated to be 30 mmHg. Although the idea of a Pleurx catheter placement has been discussed in the past, oncology did not wish to have an indwelling pleural catheter placed. On presentation to the emergency department, the patient was noted to be afebrile and hemodynamically stable. She was maintaining appropriate oxygen saturations on 3 L/min via nasal cannula. Laboratory evaluation revealed a white blood cell count of 12,000. 8% band neutrophils were also noted. Chemistry profile was unrevealing. Lactate was within normal limits. Phosphorus was low at 1.6. Chest x-ray revealed bilateral pleural effusions, left greater than right. The patient was subsequently placed on antimicrobials and admitted to the progressive care unit for further management. Past Medical History Past Medical History (Chronic Problems): Chronic Problems (Last Reviewed 01/23/20 @ 12:21 by Amanda Diallo) Macrocytic anemia (Chronic) Hyperparathyroidism (Chronic) Primary cancer of right female breast (Chronic) Bone metastases (Chronic) Tachycardia (Chronic) Chest pain (Chronic) Brain metastases (Chronic) Anemia (Chronic) CARCINOMA OF RIGHT BREAST METASTATIC TO BONE Medical History: Medical History (Last Reviewed 01/23/20 @ 12:21 by Amanda Diallo) Brain metastases (Chronic) C79.31 Anemia (Chronic) C50.919 CARCINOMA OF RIGHT BREAST METASTATIC TO BONE Breast cancer C79.51 Cancer, metastatic to bone M84.461A Heartburn symptom R12 Imbalance M84.463A Neuropathy G62.9 Postmenopausal bleeding N95.0 Swelling of right foot M79.89 Encounter for adjustment and management of vascular access device Z45.2 History of tamoxifen therapy S82.201A, S82.401A Right tibial fracture S82.201A Chemotherapy management, encounter for (Inactive) Z51.11 Allergies No Known Allergies Allergy (Verified 01/23/20 12:22) Home Medications: Ambulatory Orders Medication Instructions Recorded traMADol [Ultram] 50 mg PO QHS 04/19/19 Cholecalciferol (VIT D3) [Vitamin 1,000 unit PO DAILY 06/23/19 D3] carvedilol 3.125 mg tablet 3.125 mg PO BID #60 tab 12/15/19 Pregabalin [Lyrica] 50 mg PO QHS cap 01/03/20 Nut.tx.impaired Digestive Fxn 296 ml PO TID 01/27/20 [Ensure Clear Therapeutic] Surgical History: Surgical History (Last Reviewed 01/23/20 @ 12:36 by Amanda Diallo) History of open reduction and internal fixation (ORIF) procedure Onset Date: 09/2017 Z98.890 HUY PLACEMENT IN FEMOR History of right mastectomy Z90.11 History of thoracentesis Onset Date: 12/08/19 Z98.890 left SURGERY RIGHT TIBIAL Onset Date: 2018 2018 Surgical History: - - Frequent left-sided thoracentesis, right mastectomy, ORIF femur, right tibial surgery, port. Psychiatric History: No pertinent psych hx [employer] History: No pertinent [employer] history Lives: Spouse/ Significant Other Smoking Status: Never smoker Tobacco Use: Non-smoker Alcohol: None Drugs: None - *Family History Maternal Family History: Family History (Last Reviewed 01/23/20 @ 12:21 by Amanda Diallo) Mother Colon cancer Father Heart disease History Items: Cancer - Other with history of colon cancer Paternal Family History: Family History (Last Reviewed 01/23/20 @ 12:21 by Amanda Diallo) Mother Colon cancer Father Heart disease History Items: High Cholesterol, Heart Disease, Hypertension Review of Systems Constitutional: Denies: Chills, Fever Eyes: Denies: Blurred vision, Double vision HEENT: Denies: Head Aches, Sinus Congestion, Sinus Drainage Cardiovascular: Denies: Chest Pain, Palpitations Respiratory: Reports: Cough, Shortness of Breath. Denies: Sputum production Gastrointestinal: Reports: Diarrhea. Denies: Abdominal Pain, Nausea, Vomiting Genitourinary: Denies: Dysuria Musculoskeletal: Denies: Joint Pain, Joint Tenderness Skin: Denies: Rash, Wounds Neurological: Denies: Numbness, Tingling, Focal weakness Psychiatric: Denies: Anxiety, Depression, Homicidal Ideations, Suicidal Ideations Hematologic/ Lymphatic: Reports: Anemia Objective: The patient's most recent lab work, culture data and imaging studies have all been personally reviewed. - Physical Exam Vitals/I&O's: Vital Signs Temp Pulse Resp BP Pulse Ox 98.4 F 97 16 103/64 97 01/28/20 05:15 01/28/20 05:15 01/28/20 05:15 01/28/20 05:15 01/28/20 05:15 Oxygen Flow Rate (L/min) 3 Oxygen Delivery Method Nasal Cannula Weight: 92 lb 9.506 oz Body Mass Index (BMI) 15.4 Intake and Output for Last 24 Hours 01/26/20 01/27/20 01/28/20 23:59 23:59 23:59 Intake Total 515.0 / 755.0 1176 / 1176 Balance 515.0 / 755.0 1176 / 1176 General: Alert, Cooperative, No apparent distress, - - Quite frail and cachectic in appearance HEENT: Atraumatic, PERRLA, Normocephalic Oral: No Gingival or Mucosal Lesions/ Ulcerations Neck: Supple, No Nodes, Trachea Midline Lungs: Diminished, - - Bilateral rales present, right greater than left Cardiovascular: Regular rate, Regular Rhythm, Murmur Abdomen: Bowel Sounds Present, Soft, Non Tender Extremities: No clubbing, No cyanosis, No edema Skin: No breakdown Musculoskeletal: Cachexia, Muscle Wasting Lymphatic: No Cervical, Supraclavicular, or Inguinal Adenopathy Neurological: Cranial nerves II-XII grossly intact, Neuro grossly intact Psych/Mental Status: Normal Affect, Appropriate Labs (Last 48 Hours) 01/27/20 01/27/20 01/27/20 18:50 18:50 18:50 WBC 11.7 H RBC 2.80 L Hgb 9.6 L Hct 29.7 L MCV 106.1 H MCH 34.3 H MCHC 32.3 RDW Std Deviation 57.3 H RDW Coeff of Rajni 14.7 H Plt Count 113 L MPV 10.3 Neut % (Auto) Not Reportable Absolute Neuts (auto) 10.4 H Absolute Lymphs (auto) 0.23 L Total Counted 100 Neutrophils % (Manual) 81 H Band Neutrophils % 8 H Lymphocytes % (Manual) 2 L Monocytes % (Manual) 9 Diff Path Review May foll Sodium 142 Potassium 3.5 Chloride 110 H Carbon Dioxide 27.0 Anion Gap 5 BUN 7 Creatinine 0.19 L Estim Creat Clear Calc 37.01 Est GFR (MDRD) Af Amer 484 Est GFR (MDRD) Non-Af 400 BUN/Creatinine Ratio 37.0 H Glucose 88 Lactic Acid Calcium 7.4 L Phosphorus Magnesium 1.7 Total Bilirubin 1.20 H AST 10 L ALT 16 Alkaline Phosphatase 85 Lactate Dehydrogenase 143 Troponin I < 0.015 Total Protein 5.3 L 5.3 L Albumin 3.0 L Globulin 2.3 2.4 Albumin/Globulin Ratio 1.3 1.2 01/27/20 01/27/20 18:50 20:10 WBC RBC Hgb Hct MCV MCH MCHC RDW Std Deviation RDW Coeff of Rajni Plt Count MPV Neut % (Auto) Absolute Neuts (auto) Absolute Lymphs (auto) Total Counted Neutrophils % (Manual) Band Neutrophils % Lymphocytes % (Manual) Monocytes % (Manual) Diff Path Review Sodium Potassium Chloride Carbon Dioxide Anion Gap BUN Creatinine Estim Creat Clear Calc Est GFR (MDRD) Af Amer Est GFR (MDRD) Non-Af BUN/Creatinine Ratio Glucose Lactic Acid 1.3 Calcium Phosphorus 1.6 L Magnesium Total Bilirubin AST ALT Alkaline Phosphatase Lactate Dehydrogenase Troponin I Total Protein Albumin Globulin Albumin/Globulin Ratio Clinical Impression(s) from Imaging Studies Chest X-Ray 01/27/20 19:10 IMPRESSION: Bilateral pleural effusions greater on the left with bibasilar consolidation Electronically Signed: Jono Abel MD at 19:31 EDT , Service support , Current Medications Acetaminophen (Tylenol) 650 mg PO Q6H PRN PRN PRN Reason: Pain Score 1-10/Temp > 100.7 F Al Hydroxide/Mg Hydroxide (Mylanta Ii) 30 ml PO Q6H PRN PRN PRN Reason: Gastric Burning Albuterol Sulfate (Ventolin Aerosols) 2.5 mg INHALATION Q2H PRN PRN PRN Reason: Dyspnea, wheezing Carvedilol (Coreg) 3.125 mg PO BID [facility] Last Admin: 01/27/20 23:04 Dose: 3.125 mg Documented by: Cholecalciferol (Vitamin D (25mcg)) 1,000 unit PO DAILY [facility] Dextrose (D50w Syringe) 0 gm IV X1 PRN; Protocol PRN Reason: Hypoglycemia Famotidine (Pepcid) 20 mg PO DAILY [facility] Glucagon () 1 mg IM .X1 PRN PRN Reason: Hypoglycemia Guaifenesin (Robitussin) 20 ml PO Q4H PRN PRN PRN Reason: COUGH Heparin Sodium (Beef Lung) () 50 units IV UD PRN PRN Reason: Port-a-Cath (VAD)Heparin Flush Hydralazine HCl (Apresoline Iv) 10 mg IV Q4H PRN PRN PRN Reason: SBP > 160 Piperacillin Sod/Tazobactam (Sod 3.375 gm/ Sodium Chloride) 50 mls @ 12.5 mls/hr IV Q8 [facility] Last Admin: 01/28/20 06:21 Dose: 12.5 mls/hr Documented by: Vancomycin IV Pharmacy to Dose (1 ea/ Sodium Chloride) 500 mls @ 250 mls/hr IV X1 PRN; Protocol PRN Reason: Rx to Dose Vancomycin HCl 750 mg/ Sodium (Chloride) 265 mls @ 250 mls/hr IV Q24H [facility] Magnesium Hydroxide (Milk Of Magnesia) 30 ml PO DAILY PRN PRN PRN Reason: Constipation Melatonin (Melatonin) 3 mg PO QHS PRN PRN PRN Reason: INSOMNIA Morphine Sulfate () 2 mg IV Q3H PRN PRN PRN Reason: Pain Score 6-10/10 Nutritional Formula (Lactose Free) (Ensure Clear) 240 ml PO TID [facility] Last Admin: 01/28/20 06:25 Dose: Not Given Documented by: Ondansetron HCl (Zofran) 4 mg IV Q8H PRN PRN PRN Reason: NAUSEA/VOMITING Oxycodone HCl (Oxyir) 5 mg PO Q4H PRN PRN PRN Reason: Pain Score 4-5/10 Pregabalin (Lyrica) 50 mg PO QHS [facility] Last Admin: 01/27/20 21:35 Dose: 50 mg Documented by: Prochlorperazine Edisylate (Compazine Iv) 5 mg IV Q4H PRN PRN PRN Reason: Breakthrough Nausea/Vomiting Psyllium Hydrophilic Mucilloid (Metamucil) 1 packet PO DAILY PRN PRN PRN Reason: Constipation Senna/Docusate Sodium (Senokot-S, Andreina-Colace) 2 tablet PO BID PRN PRN PRN Reason: Constipation Sodium Chloride () 10 - 40 ml IV UD PRN PRN Reason: Port-a-Cath (VAD) Flush Sodium Chloride (0.9% Nacl (Sterile) Posiflush) 10 - 40 ml IV UD PRN PRN Reason: Port access or dressing change Throat Lozenges (Cepacol Sore Throat Lozenge) 1 lozenge MUCOUS MEM Q2H PRN PRN PRN Reason: SORE THROAT Tramadol HCl (Ultram) 50 mg PO QHS [facility] Last Admin: 01/27/20 21:35 Dose: 50 mg Documented by: Assessment/Plan All Active Problems (Last Reviewed 01/23/20 @ 12:21 by Amanda Diallo) Hypocalcemia (Acute) Recurrent pleural effusion on left (Acute) Hospital-acquired pneumonia (Acute) Pleural effusion, bilateral (Acute) Dyspnea (Acute) Cyanotic fingertip (Resolved) Encounter for education (Resolved) Encounter for insertion of venous access port (Resolved) Pneumonia (Resolved) RECOMMENDATIONS: 1. Continue empiric antimicrobials for now. 2. Consider transfer to tertiary care facility to be evaluated by thoracic surgery for possible pleurodesis. 3. Wean supplemental oxygen to maintain saturations at or above 90%. 4. Encourage incentive spirometer use and mobilize patient as tolerated. IMPRESSIONS: 1. Shortness of breath secondary to recurrent pleural effusions High index of suspicion for underlying malignancy as the etiology for the patient's recurrent pleural effusions, despite negative pleural fluid cytology in the past. Oncology has been resistant to the idea of Pleurx catheter placement. Given the recurrent nature of these effusions and need for frequent hospitalizations, recommend considering transfer to a tertiary care facility to be evaluated by thoracic surgery for possible pleurodesis. In the interim, I do agree that it is appropriate to continue empiric antimicrobials for now, although infection seems less likely. 2. Hypophosphatemia Electrolyte repletion as ordered. Recheck levels in the morning. 3. History of metastatic breast cancer The patient is currently being followed by Dr. Carrera of oncology. She remains on systemic chemotherapy. 4. Anemia/protein calorie malnutrition Complicates care, management, recovery and prognosis. Continue to monitor blood counts daily. No current indication for transfusion of blood products. This note was generated with [employer] dictation software. It may contain incorrect words, spelling, and punctuation that were not noted in checking the note before signing. Inpatient E&M: [id number] Init Hosp L3
[2020-01-28] MEDS: Carvedilol 3.125 MG TABLET PO (09:24)
[2020-01-28] MEDS: Famotidine 20 MG Tablet PO (09:24)
[2020-01-28 10:31] LABS: Absolute Lymphocyte Count 0.69 X10^3/uL (0.83-4.51); Basophil# 0.03 X10^3/uL; Basophil% 0.2 % (0-1); Eosinophil# 0.02 X10^3/uL; Eosinophils% 0.1 % (0-5); Hematocrit 28.2 % (37-47); Lymphocyte # 0.69 X10^3/ul (4.0); Lymphocyte % 4.3 % (19-41); Mean Corp Hgb Conc 31.9 g/dL (32-36); Mean Corpuscular Hgb 33.8 pg (27.0-32.0); Mean Platelet Vol. 10.1 fl (6.2-12.0); Monocyte% 9.5 % (0-10); NRBC Flagged by Analyzer 0.1 % (0-5); Neutrophil # 12.98 X10^3/uL (2.7-7.7); Neutrophil % 81.8 % (47-70); POSITIVE MORPHOLOGY YES; Platelet Count 115 K/mm3 (150-450); RBC Distribution Width CV 15.1 % (11.6-14.6); RBC Distribution Width SD 58.4 fl (35.1-43.9); Red Blood Count 2.66 M/mm3 (4.2-5.4); White Blood Count 15.9 K/mm3 (4.4-11.0)
[2020-01-28 10:45] LABS: International Normalized Ratio 1.4; Prothrombin Time (Protime)PT. 16.5 SECONDS (11.7-14.9)
[2020-01-28 10:46] LABS: Partial Thromboplast Time 30.5 Seconds (24.1-36.2)
[2020-01-28 10:58] LABS: ALB/GLOB Ratio 1.3 RATIO (0.9-2.4); AST(SGOT) 10 U/L (15-37); Alanine Aminotransfer ALT/SGPT 14 U/L (13-56); Albumin, Serum 2.7 g/dL (3.2-5.0); Alkaline Phosphatase 84 U/L (45-117); Anion Gap 4 (5-15); BUN 6 mg/dL (7-18); BUN/Creat Ratio 19.7 RATIO (10-20); Calcium,Total 7.1 mg/dL (8.5-10.1); Chloride 111 mmol/L (98-107); EST Glomerular Filtration Rate 230 mL/min (>60); Est Glom Filt Rate - Afr Amer 279 mL/min (>60); Globulin 2.1 g/dL (2.2-4.2); Glucose 131 mg/dL (74-106); Potassium 3.3 mmol/L (3.5-5.1); Protein, Total 4.8 g/dL (6.4-8.2); Sodium Level 143 mmol/L (136-145)
[2020-01-28 11:13] LABS: Differential Comment SCANNED; Differential Indicated SCAN CRITERIA MET
--- NOTE | 2020-01-28 12:13 | PCM.DC.SUM ---
Discharge Date and Diagnosis Date of Admission: 01/27/20 Date of Discharge: 01/28/20 - Primary Discharge Diagnosis Acute Problems: Active Problems (Last Reviewed 01/23/20 @ 12:21 by Amanda Diallo) 1. Chronic hypoxia respiratory failure secondary to recurrent pleural effusions 2. Metastatic breast cancer, mets to lung, bone and brain 3. Severe protein calorie malnutrition 4. Chronic macrocytic anemia 5. Hyperparathyroidism 6. Chronic tachycardia/SVT 7. Chronic pain syndrome/neuropathy - Secondary Discharge Diagnosis Chronic Problems: Chronic Problems (Last Reviewed 01/23/20 @ 12:21 by Amanda Diallo) Macrocytic anemia (Chronic) Hyperparathyroidism (Chronic) Primary cancer of right female breast (Chronic) Bone metastases (Chronic) Tachycardia (Chronic) Chest pain (Chronic) Brain metastases (Chronic) Anemia (Chronic) CARCINOMA OF RIGHT BREAST METASTATIC TO BONE Hospital Course and Treatment Imaging Results: Diagnostic Data Chest X-Ray 01/27/20 19:10 IMPRESSION: Bilateral pleural effusions greater on the left with bibasilar consolidation Electronically Signed: Jono Abel MD at 19:31 EDT , Service support , Dr. Stoner- Pulmonary Medicine Operations: None Procedures: None Summary of Care Provided: The patient is a 69 year old F admitted 01/27/2020 due to dyspnea and productive cough. 1. Chronic hypoxia respiratory failure secondary to recurrent pleural effusions-on baseline home O2 requirements. Dr. Stoner, pulmonary medicine consulted during admission given recurrent pleural effusions. Recent thoracentesis in December. Discussed with patient transfer to [facility] facility where thoracic surgery is available for placement of chest tube with pleurodesis. Patient in agreement. Transferred to [facility] for further evaluation and treatment. 2. Metastatic breast cancer, mets to lung, bone and brain- Follows with Dr. Carrera. 3. Severe protein calorie malnutrition-dietitian consult during admission. 4. Chronic macrocytic anemia-stable. 5. Hyperparathyroidism-continue outpatient follow-up. 6. Chronic tachycardia/SVT-continue Coreg regimen. 7. Chronic pain syndrome/neuropathy-on Lyrica and PRN tramadol. Patient seen and examined prior to discharge. Physical assessment as noted below. Patient is stable at time of transfer to tertiary facility for further evaluation and management of recurrent pleural effusions. This patient was seen by CM Gray under the supervision of Dr. Cruz. - Physical Exam Vitals/I&O's: Vital Signs Temp Pulse Resp BP Pulse Ox 97.5 F L 107 H 20 H 106/60 96 01/28/20 11:15 01/28/20 11:15 01/28/20 11:15 01/28/20 11:15 01/28/20 11:15 Oxygen Flow Rate (L/min) 3 Oxygen Delivery Method Nasal Cannula Weight: 92 lb 9.506 oz Body Mass Index (BMI) 15.4 Intake and Output for Last 24 Hours 01/26/20 01/27/20 01/28/20 23:59 23:59 23:59 Intake Total 515.0 / 755.0 1546 / 1546 Balance 515.0 / 755.0 1546 / 1546 General: Alert, Oriented x3, Cooperative HEENT: Atraumatic, PERRLA, EOMI, Normocephalic Neck: Supple, No JVD, Negative Carotid Bruits Lungs: Clear to auscultation, Diminished Cardiovascular: Regular rate, No murmurs Abdomen: Bowel Sounds Present, Soft, Non Tender Extremities: No edema, Capillary Refill Less than 3 Seconds Skin: No rashes, No breakdown Musculoskeletal: No Tenderness to Palpation of Joints or Extremities, Cachexia, Muscle Wasting Neurological: Cranial nerves II-XII grossly intact, Neuro grossly intact Psych/Mental Status: Normal Affect, Appropriate Laboratory Results 01/27/20 18:50: Sodium 142, Potassium 3.5, Chloride 110 H, Carbon Dioxide 27.0, Anion Gap 5, BUN 7, Creatinine 0.19 L, Estim Creat Clear Calc 37.01, Est GFR (MDRD) Af Amer 484, Est GFR (MDRD) Non-Af 400, BUN/Creatinine Ratio 37.0 H, Glucose 88, Calcium 7.4 L, Total Bilirubin 1.20 H, AST 10 L, ALT 16, Alkaline Phosphatase 85, Troponin I < 0.015, Total Protein 5.3 L, Albumin 3.0 L, Globulin 2.3, Albumin/Globulin Ratio 1.3 01/27/20 18:50: WBC 11.7 H, RBC 2.80 L, Hgb 9.6 L, Hct 29.7 L, MCV 106.1 H, MCH 34.3 H, MCHC 32.3, RDW Std Deviation 57.3 H, RDW Coeff of Rajni 14.7 H, Plt Count 113 L, MPV 10.3, Neut % (Auto) Not Reportable, Absolute Neuts (auto) 10.4 H, Absolute Lymphs (auto) 0.23 L, Total Counted 100, Neutrophils % (Manual) 81 H, Band Neutrophils % 8 H, Lymphocytes % (Manual) 2 L, Monocytes % (Manual) 9, Diff Path Review November01/27/20 18:50: Magnesium 1.7, Lactate Dehydrogenase 143, Total Protein 5.3 L, Globulin 2.4, Albumin/Globulin Ratio 1.2 01/27/20 18:50: Phosphorus 1.6 L 01/27/20 20:10: Lactic Acid 1.3 01/28/20 09:20: MRSA (PCR) Pending 01/28/20 10:20: WBC 15.9 H, RBC 2.66 L, Hgb 9.0 L, Hct 28.2 L, MCV 106.0 H, MCH 33.8 H, MCHC 31.9 L, RDW Std Deviation 58.4 H, RDW Coeff of Rajni 15.1 H, Plt Count 115 L, MPV 10.1, Immature Gran % (Auto) 4.100 H, Neut % (Auto) 81.8 H, Lymph % (Auto) 4.3 L, [place] % (Auto) 9.5, Eos % (Auto) 0.1, Baso % (Auto) 0.2, Absolute Neuts (auto) 13.0 H, Absolute Lymphs (auto) 0.69 L, Nucleated RBC % 0.1, Differential Comment SCANNED 01/28/20 10:20: Sodium 143, Potassium 3.3 L, Chloride 111 H, Carbon Dioxide 28.0, Anion Gap 4 L, BUN 6 L, Creatinine 0.30 L, Estim Creat Clear Calc 35.70, Est GFR (MDRD) Af Amer 279, Est GFR (MDRD) Non-Af 230, BUN/Creatinine Ratio 19.7, Glucose 131 H, Calcium 7.1 L, Total Bilirubin 0.90, AST 10 L, ALT 14, Alkaline Phosphatase 84, Total Protein 4.8 L, Albumin 2.7 L, Globulin 2.1 L, Albumin/Globulin Ratio 1.3 01/28/20 10:20: PT 16.5 H, INR 1.4, APTT 30.5 Current Medications Acetaminophen (Tylenol) 650 mg PO Q6H PRN PRN PRN Reason: Pain Score 1-10/Temp > 100.7 F Al Hydroxide/Mg Hydroxide (Mylanta Ii) 30 ml PO Q6H PRN PRN PRN Reason: Gastric Burning Albuterol Sulfate (Ventolin Aerosols) 2.5 mg INHALATION Q2H PRN PRN PRN Reason: Dyspnea, wheezing Carvedilol (Coreg) 3.125 mg PO BID [facility] Last Admin: 01/28/20 09:24 Dose: 3.125 mg Documented by: Cholecalciferol (Vitamin D (25mcg)) 1,000 unit PO DAILY [facility] Last Admin: 01/28/20 09:24 Dose: 1,000 unit Documented by: Dextrose (D50w Syringe) 0 gm IV X1 PRN; Protocol PRN Reason: Hypoglycemia Famotidine (Pepcid) 20 mg PO DAILY [facility] Last Admin: 01/28/20 09:24 Dose: 20 mg Documented by: Glucagon () 1 mg IM .X1 PRN PRN Reason: Hypoglycemia Guaifenesin (Robitussin) 20 ml PO Q4H PRN PRN PRN Reason: COUGH Heparin Sodium (Beef Lung) () 50 units IV UD PRN PRN Reason: Port-a-Cath (VAD)Heparin Flush Hydralazine HCl (Apresoline Iv) 10 mg IV Q4H PRN PRN PRN Reason: SBP > 160 Piperacillin Sod/Tazobactam (Sod 3.375 gm/ Sodium Chloride) 50 mls @ 12.5 mls/hr IV Q8 [facility] Last Infusion: 01/28/20 10:21 Dose: Infused Documented by: Vancomycin IV Pharmacy to Dose (1 ea/ Sodium Chloride) 500 mls @ 250 mls/hr IV X1 PRN; Protocol PRN Reason: Rx to Dose Vancomycin HCl 750 mg/ Sodium (Chloride) 265 mls @ 250 mls/hr IV Q24H [facility] Magnesium Hydroxide (Milk Of Magnesia) 30 ml PO DAILY PRN PRN PRN Reason: Constipation Melatonin (Melatonin) 3 mg PO QHS PRN PRN PRN Reason: INSOMNIA Morphine Sulfate () 2 mg IV Q3H PRN PRN PRN Reason: Pain Score 6-10/10 Nutritional Formula (Lactose Free) (Ensure Clear) 120 ml PO 4X/DAY [facility] Ondansetron HCl (Zofran) 4 mg IV Q8H PRN PRN PRN Reason: NAUSEA/VOMITING Oxycodone HCl (Oxyir) 5 mg PO Q4H PRN PRN PRN Reason: Pain Score 4-5/10 Pregabalin (Lyrica) 50 mg PO QHS [facility] Last Admin: 01/27/20 21:35 Dose: 50 mg Documented by: Prochlorperazine Edisylate (Compazine Iv) 5 mg IV Q4H PRN PRN PRN Reason: Breakthrough Nausea/Vomiting Psyllium Hydrophilic Mucilloid (Metamucil) 1 packet PO DAILY PRN PRN PRN Reason: Constipation Senna/Docusate Sodium (Senokot-S, Andreina-Colace) 2 tablet PO BID PRN PRN PRN Reason: Constipation Sodium Chloride () 10 - 40 ml IV UD PRN PRN Reason: Port-a-Cath (VAD) Flush Sodium Chloride (0.9% Nacl (Sterile) Posiflush) 10 - 40 ml IV UD PRN PRN Reason: Port access or dressing change Throat Lozenges (Cepacol Sore Throat Lozenge) 1 lozenge MUCOUS MEM Q2H PRN PRN PRN Reason: SORE THROAT Tramadol HCl (Ultram) 50 mg PO QHS [facility] Last Admin: 01/27/20 21:35 Dose: 50 mg Documented by: Home Medications: Medications to take at Discharge traMADol [Ultram] 50 mg PO QHS 04/19/19 Cholecalciferol (VIT D3) [Vitamin D3] 1,000 unit PO DAILY 06/23/19 carvedilol 3.125 mg tablet 3.125 mg PO BID #60 tab 12/15/19 Pregabalin [Lyrica] 50 mg PO QHS cap 01/03/20 Nut.tx.impaired Digestive Fxn [Ensure Clear Therapeutic] 296 ml PO TID 01/27/20 Primary Care Physician: Golden Goldsmith Chi, MD [Primary Care Provider] - Disposition: Acute care Hospital Minutes spent on discharge:: 35 Patient Condition:: Stable Medical Necessity - Tobacco Use Smoking Status: Never smoker Tobacco Use: Non-smoker Meaningful Use Info Meaningful Use Diagnoses (Choose all that apply): None applicable
--- NOTE | 2020-01-28 13:12 | NURSING ---
1305-Report called to Marlen ZAMARRIPA at [facility] regarding pt transfer.
[2020-01-28 14:27] LABS: M R Staph aureus DNA By PCR Negative (Negative); Probe Check PASS; Specimen Processing Control PASS
--- NOTE | 2020-01-28 15:26 | EKG12_ITS ---
Test Reason : Blood Pressure : / mmHG Vent. Rate : 117 BPM Atrial Rate : 117 BPM P-R Int : 128 ms QRS Dur : 072 ms QT Int : 340 ms P-R-T Axes : 045 077 081 degrees QTc Int : 474 ms Sinus tachycardia with Premature atrial complexes Low voltage QRS (Limb Leads) Borderline ECG Confirmed by AMANDA BEAVER, DIANA ([id number]), graphic editor SHYANNE ROYAL ([id number]) on 02/01/2020 8:56:59 AM Referred By: CHRISSY Confirmed By:DIANA PATEL MD
[2020-01-28] MEDS: Morphine 2 MG/ML Syringe IV (15:41)
[2020-01-28] MEDS: 0.9% Saline Lock 10 ML Syringe IV (15:41)
--- NOTE | 2020-01-28 16:00 | NURSING ---
1520-Transport here and in room to get pt. Pt c/o chest pain on left side of chest as pressure with no radiation 11/19. Stat EKG ordered and obtained. 153-Dr. Cruz notified of c/o chest pain and EKG seen by him. Per Dr. Cruz no STEMI or changes, give PRN morphine and she can go with transport to [facility].
[2020-01-30 12:21] LABS: Pathologist Review Reviewed
== END 2020-01-28 15:52 | disposition short-term general hospital (02) | DRG 186 ==
LOC: ED 19:05 → PCU 20:33
PROVIDERS: Admitting Provider Family Medicine; Emergency Provider Emergency Medicine; PCP Family Medicine Geriatric Medicine; Visit Provider Internal Medicine
DX: J90 Pleural effusion, not elsewhere classified (principal); E43 Unspecified severe protein-calorie malnutrition; J96.11 Chronic respiratory failure with hypoxia; I47.1 Supraventricular tachycardia; C78.00 Secondary malignant neoplasm of unspecified lung; C79.51 Secondary malignant neoplasm of bone; C79.31 Secondary malignant neoplasm of brain; C50.911 Malignant neoplasm of unspecified site of right female breast; D63.0 Anemia in neoplastic disease; G62.9 Polyneuropathy, unspecified; G89.4 Chronic pain syndrome; E21.3 Hyperparathyroidism, unspecified; Z66 Do not resuscitate; Z90.11 Acquired absence of right breast and nipple; Z99.81 Dependence on supplemental oxygen
CPT/HCPCS: 71045; 80053; 83605; 83615; 83735; 84100; 84156; 84484; 85025; 85610; 85730; 87040; 87641; 93005; 94667; 97162; 97165; 97802; 99251; 99285; J7030; J7050; A4216; G0463